=== PATIENT | male | born 1945 | race Caucasian/White ===

== ENCOUNTER 2022-01-19 09:09 | Outpatient (CLI) | payer MEDICARE, MEDICAID, SELFPAY | END 2022-01-19 09:10 | disposition home or self-care (01) | LOC: ANHBWCAUD 09:11 | PROVIDERS: Visit Provider Family Medicine | DX: H91.93 Unspecified hearing loss, bilateral (principal) | CPT/HCPCS: 92555; 92567; 92579 ==

== ENCOUNTER 2025-01-12 08:08 | Outpatient (CLI) | payer MEDICARE, MEDICAID, SELFPAY ==
--- OUTSIDE RECORDS SUMMARY | 2025-01-12 08:17 | XMS_ITS | Encounter Summary ---
Author Organization [facility] Address [address] [place] [address] Phone Care Team Providers Care Electrical And Radio Mock Up Mechanic Name Role Phone Alvaro Dinh MD Primary Care Provider [phone] Markie Dey MD Primary Care Provider [phone] Edvin Zamorano MD Unavailable Encounter Details Date Type Department Care Team (Late Contact Info) Description 07/26/2021 [facility] [address] [place] [address] Markie Dey MD [address] [place] [address] [address] [place] [address] Encounter for screening for COVID-19 Social History Tobacco Use Types Packs/Day Years Used Date Smoking Tobacco: Never Smokeless Tobacco: Never Alcohol Use Standard Drinks/Week Comments Never 0 (1 standard drink = 0.6 oz pur e alcohol) Sex and Gender Information Value Date Recorded Sex Assigned at Not on file Legal Sex Male 7:11 PM CDT Gender Identity Not on file Sexual Orientation Not on file documented as of this encounter Plan of Treatment Upcoming Encounters Date Type Department Care Team (Late Contact Info) Description 03/12/2025 10:00 AM CDT Office Visit [facility] #2 [place] [address] Yelena Moe MD #2 [facility] [address] [place] [address] documented as of this encounter Procedures Procedure Name Priority Date/Time Associated Diagnosis Comments SARS-COV-2 BY MOLECULAR Routine 07/26/2021 9:21 AM CDT documented in this encounter Results * SARS-COV-2 BY MOLECULAR (07/26/2021 9:21 AM CDT) SARSCOV2 NOT DETECTED (Referen ce Range for this test is Not Detected ) [facility] THERMOFISHER FAST DX 07/27/2021 8:27 AM CDT [facility] Comment:This test was perfor med by a RT-PCR method. Other No Phlebotomy Charged / Unknown 07/26/2021 9:21 AM CDT 07/26/2021 11:26 AM CDT Narrative [facility] - 07/27/2021 8:27 AM CDT Authorized Fact Sheets about this test for providers and patients are available at: https://www.fda.gov/medical-devices/nldabuxao-ibjwomwpoq-kvqaxhg-devices/emergen -us e-authorizations us Markie Dey MD MICROBIOLOGY - GENERAL ORDERAB LES Final Result [facility] [address] [place] [address], documented in this encounter Visit Diagnoses Diagnosis Encounter for screening for COVID-19 documented in this encounter Additional Health Concerns Infection Onset Date Last Indicated Resolved Time COVID - 19 07/26/2021 05/30/2022 05/31/2022 12:2 3 AM CDT COVID - 19 Confirmed 05/30/2022 05/30/20222 022 12:16 AM CDT COVID - 19 08/08/2022 09/12/2022 09/22/2022 12:1 6 AM DESIGN CONSULTANT COVID - 19 10/31/2022 01/16/2023 01/26/2023 12:1 6 AM CDT COVID - 19 09/25/2024 09/25/2024 09/25/2024 10:4 0 AM DESIGN CONSULTANT documented as of this encounter Care Teams Electrical And Radio Mock Up Mechanic Relationship Specialty Start Date End Date Alvaro Dinh MD [address] [place] [address] PCP - General Internal Medicine 08/09/20 03/20/23 Markie Dey MD 4 [facility] [address] [place] [address] PCP - General Family Medicine 03/21/23 Edvin Zamorano MD #[address] [facility] [address] [place] [address] Consulting Physician Urology 06/24/24 documented as of this encounter
--- OUTSIDE RECORDS SUMMARY | 2025-01-12 08:17 | XMS_ITS | Encounter Summary ---
Author Organization [facility] Address [address] [place] [address] Phone Care Team Providers Care Bar Helper Name Role Phone Markie Dey MD Primary Care Provider [phone] Edvin Zamorano MD Unavailable Encounter Details Date Type Department Care Team (Late st Contact Info) Description 09/09/2024 [facility] 1 [place] [address] Markie Dey MD [address] [place] [address] [address] [place] [address] Type 1 diabetes mellitus without complications (HCC) Social History Tobacco Use Types Packs/Day Years Used Date Smoking Tobacco: Never Smokeless Tobacco: Never Alcohol Use Standard Drinks/Week Comments Never 0 (1 standard drink = 0.6 oz pur e alcohol) Sexually Active Control Partners Comments Not Currently Sex and Gender Information Value Date Recorded Sex Assigned at Not on file Legal Sex Male 7:11 PM CDT Gender Identity Not on file Sexual Orientation Not on file documented as of this encounter Plan of Treatment Upcoming Encounters Date Type Department Care Team (Late st Contact Info) Description 03/12/2025 10:00 AM CDT Office Visit [facility] #2 [place] [address] Yelena Moe MD #2 [facility] [address] [place] [address] documented as of this encounter Procedures Procedure Name Priority Date/Time Associated Diagnosis Comments HEMOGLOBIN A1C W/ ESTIMATED GLUCOSE Routine 09/09/2024 6:19 AM RN CASE MANAGER HOSPICE Type 1 diabetes mellitus without complications (HCC) documented in this encounter Results * (ABNORMAL) HEMOGLOBIN A1C W/ ESTIMATED GLUCOSE (09/09/2024 6:19 AM RN CASE MANAGER HOSPICE) HGB-A1C 7.4(H) 4.0 - 6.0 % 09/09/2024 10:04 AM RN CASE MANAGER HOSPICE [facility] Est Average Glucose 165.7 mg/dL 09/09/2024 10:04 AM RN CASE MANAGER HOSPICE [facility] Blood Venipuncture / Unknown 09/09/2024 6:19 AM RN CASE MANAGER HOSPICE 09/09/2024 9:36 AM RN CASE MANAGER HOSPICE Narrative [facility] - 09/09/2024 10:04 AM RN CASE MANAGER HOSPICE HEMOGLOBIN A1C: DIABETIC PATIENTS: WELL-CONTROLLED: 6.2 - 7.0 INTERMEDIATE WELL-CONTROLLED: 7.0 - 9.0 POORLY-CONTROLLED: >9.0 us Markie Dey MD CHEMISTRY ORDERABLES Final Res ult [facility] #[address] [place] [address] documented in this encounter Visit Diagnoses Diagnosis Type 1 diabetes mellitus without complications (HCC) Type I (juvenile type) diabetes mellitus without mention of complication, not stated as uncontrolled documented in this encounter Additional Health Concerns Infection Onset Date Last Indicated Resolved Time COVID - 19 09/25/2024 09/25/2024 09/25/2024 10:4 0 AM RN CASE MANAGER HOSPICE documented as of this encounter Care Teams Bar Helper Relationship Specialty Start Date End Date Markie Dey MD [address] [facility] [address] [place] [address] PCP - General Family Medicine 03/21/23 Edvin Zamorano MD #2 [address] [place] [address] Consulting Physician Urology 06/24/24 documented as of this encounter
--- OUTSIDE RECORDS SUMMARY | 2025-01-12 08:17 | XMS_ITS | Encounter Summary ---
Author Organization [facility] Address [address] [place] [address] Phone Care Team Providers Care Procurement Inspector Name Role Phone Alvaro Dinh MD Primary Care Provider [phone] Markie Dey MD Primary Care Provider [phone] Edvin Zamorano MD Unavailable Encounter Details Date Type Department Care Team (Late Contact Info) Description 01/09/2023 [facility] 1 [place] [address] Markie Dey MD [address] [place] [address] [address] [place] [address] Encounter for screening for COVID-19 Social History [...] Description 03/12/2025 10:00 AM CDT Office Visit [facility] #[address] [place] [address] Yelena Moe MD #2 [facility] [address] [place] [address] documented as of this encounter Procedures Procedure Name Priority Date/Time Associated Diagnosis Comments SARS-COV-2 BY MOLECULAR Routine 01/09/2023 7:39 AM INTRAOPERATIVE NEURO TECH Encounter for screening for COVID-19 documented in this encounter Results * SARS-COV-2 BY MOLECULAR (01/09/2023 7:39 AM INTRAOPERATIVE NEURO TECH) SARSCOV2 NOT DETECTED (Referenc e Range for this test is Not Detected) [facility] DIASORIN LIAISON [id number] [id number] 01/09/2023 10:21 PM INTRAOPERATIVE NEURO TECH [facility] [place] [facility] Comment:This test was perfor med by a RT-PCR method. Other Non-Phlebotomy Collection / Unknown 01/09/2023 7:39 AM INTRAOPERATIVE NEURO TECH 01/09/2023 10:03 AM INTRAOPERATIVE NEURO TECH Narrative [facility] [place] [facility] - 01/09/2023 10:21 PM INTRAOPERATIVE NEURO TECH Authorized Fact Sheets about this test for providers and patients are available at: https://www.fda.gov/medical-devices/ifzvbsdnd-pdxedrawtw-utlszgh-devices/emergen cy-us e-authorizations us Markie Dey MD MICROBIOLOGY - GENERAL ORDERAB LES Final Result [facility] [address] [facility] [place] [address], documented in this encounter Visit Diagnoses Diagnosis Encounter for screening for COVID-19 documented in this encounter Additional Health Concerns Infection Onset Date Last Indicated Resolved Time COVID - 19 10/31/2022 01/16/2023 01/26/2023 12:1 6 AM CDT COVID - 19 09/25/2024 09/25/2024 09/25/2024 10:4 0 AM INTRAOPERATIVE NEURO TECH documented as of this encounter Care Teams Procurement Inspector Relationship Specialty Start Date End Date Alvaro Dinh MD [address] [place] [address] PCP - General Internal Medicine 08/09/20 03/20/23 Markie Dey MD [address] [place] [address] [address] [place] [address] PCP - General Family Medicine 03/21/23 Edvin Zamorano MD #[address] [place] [address] Consulting Physician Urology 06/24/24 documented as of this encounter
--- OUTSIDE RECORDS SUMMARY | 2025-01-12 08:17 | XMS_ITS | Encounter Summary ---
Author Organization [facility] Address [address] [place] [address] Phone Care Team Providers Care Show Girl Name Role Phone Alvaro Dinh MD Primary Care Provider [phone] Markie Dey MD Primary Care Provider [phone] Edvin Zamorano MD Unavailable Encounter Details Date Type Department Care Team (Late st Contact Info) Description 02/28/2021 Nursing Facility [facility] [place] [address] Clau Giles APRN, CNP Social History Tobacco Use Types Packs/Day Years [...] on file documented as of this encounter Progress Notes * Clau Giles APN, CNP - 02/28/2021 11:59 PM CDT [facility] DISCHARGE SUMMARY Name: Palomo Carrasco Age: 75 y.o. : 1945 Attending Physician: No att. 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 Exam Day of Discharge: Exam: Constitutional: Patient ??appears well-developed??and well-nourished. ??No distress. Head: Normocephalic??and atraumatic. Mouth/Throat: Oropharynx is clear and moist. Mucous membranes are moist. Face symmetric.?? Eyes: Conjunctivae??and EOM??are normal. Pupils are equal, round, and reactive to light. Neck: Normal range of motion. Neck supple. Cardiovascular: Irregular rhythm, normal heart sounds??and intact distal pulses (correction - RIgthulnar and radial not felt, but doppler+). ?Exam reveals no gallop??and no friction rub. ?? No murmur??heard. Pulmonary/Chest: Effort normal??and breath sounds normal. No respiratory distress. he has no wheezes. he has no rales. ?? Abdominal: Soft. Bowel sounds are normal. he exhibits no distension. There is no tenderness. There is no rebound??and no guarding. ?? : Ferreira catheter with clear yellow urine, no sediment.?? Musculoskeletal: Normal range of motion. he exhibits trace??B/L LE??edema??- improved., tenderness??or deformity.?RLE mid leg down cooler, Lymphadenopathy: ?he has no cervical adenopathy. Neurological: Eyes open, does not follow commands.??CN and motor intact on gross exam.?? Skin: Skin is warm??and dry. No rash??noted. he is not diaphoretic. No erythema. ? Psychiatric: comfortable. Lab / Imaging Review: All labs reviewed. No new findings. DISCHARGE PLAN: Obstructive Uropathy secondary to enlarged??prostate - Ferreira catheter in place - Needs to follow up with Dr. Dominguez as an out patient - Flomax ?? Acute on Chronic Systolic CHF - Metoprolol Succinate??100 mg PO QD - Lasix - Lisinopril - Spironolactone ?? Diabetes??- new diagnosis 01/26/2021 HgbA1c 7.2 on 01/26/2021 - Metformin 500 mg PO BID - Jardiance 10 mg PO Daily 01/31/2021:??Blood sugars are not controlled with current medications. Will add the following: Lantus 15 units SQ at HS Continue to perform accuchecks at and HS. May need to consider mealtime Insulin pending blood sugar results over the next few days.?? 02/14/2021: Blood sugars have been more stable since the Lantus was added at HS. ?? 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 Stage 3 Kidney disease - CMP on 02/01/2021 and 02/08/2021 - CK on 02/08/2021 ? Hypertension - Norvasc ?? Hypothyroidism - Levothyroxine ?? Hyperlipidemia - Atorvastatin ?? Hx of Rheumatoid Arthritis - Plaquenil - Methotrexate? Hx Developmental delay - Lives in a longterm ?? VTE Prophylaxis:??Eliquis 10 mg PO BID x 6 days then 5 mg PO BID ?? Disposition:??Skilled rehab goals at [place] have been met so he is ready to discharge back to [facility]. ? I have spent time coordinating care for this skilled facility discharge: Greater than 30 minutes spent in coordinating care Signed: Clau Giles APN, EXECUTIVE COORDINATOR, 02/28/2021, 2:54 PM CDT Cosigned by Joel Charlton MD at 04/16/2021 10:08 AM CDT documented in this encounter Plan of Treatment Upcoming Encounters Date Type Department Care Team (Late st Contact Info) Description 03/12/2025 10:00 AM CDT Office Visit [facility] #[address] [place] [address] Yelena Moe MD #[address] [facility] [address] [place] [address] documented as of this encounter Visit Diagnoses Not on filedocumented in this encounter Additional Health Concerns Infection Onset Date Last Indicated Resolved Time COVID - 19 07/26/2021 05/30/2022 05/31/2022 12:2 3 AM CDT COVID - 19 Confirmed 05/30/2022 05/30/2022 0816/2 022 12:16 AM CDT COVID - 19 08/08/2022 09/12/2022 09/22/2022 12:1 6 AM HYDROELECTRIC STATION OPERATOR COVID - 19 10/31/2022 01/16/2023 01/26/2023 12:1 6 AM CDT COVID - 19 09/25/2024 09/25/2024 09/25/2024 10:4 0 AM HYDROELECTRIC STATION OPERATOR documented as of this encounter Care Teams Show Girl Relationship Specialty Start Date End Date Alvaro Dinh MD [address] [facility] [address] [place] [address] PCP - General Internal Medicine 08/09/20 03/20/23 Markie Dey MD [address] [facility] [address] [place] [address] PCP - General Family Medicine 03/21/23 Edvin Zamorano MD #[address] [address] Consulting Physician Urology 06/24/24 documented as of this encounter
--- OUTSIDE RECORDS SUMMARY | 2025-01-12 08:17 | XMS_ITS | Encounter Summary ---
Author Organization [facility] Address [address] [place] [address] Phone Care Team Providers Care Cardiac Nurse Specialist Name Role Phone Alvaro Dinh MD Primary Care Provider [phone] Markie Dey MD Primary Care Provider [phone] Edvin Zamorano MD Unavailable Encounter Details Date Type Department Care Team (Late st Contact Info) Description 02/21/2021 Nursing Facility [facility] [address] [place] [address] Clau Giles APRN, DULCE MARIA Social History Tobacco Use Types Packs/Day Years Used Date Smoking Tobacco: Never Smokeless Tobacco: Never Alcohol Use Standard Drinks/Week Comments Never 0 (1 standard drink = 0.6 oz pur e alcohol) Sex and Gender Information Value Date Recorded Sex Assigned at Not on file Legal Sex Male 7:11 PM CDT Gender Identity Not on file Sexual Orientation Not on file COVID-19 Exposure Response Date Recorded In the last month, have you been in contact with someone who was confirmed or suspected to have Coronavirus / COVID-19? No / Unsure 01/26/2021 5:34 PM CDT documented as of this encounter Progress Notes * Clau Giles APN, MARSH BUGGY OPERATOR - 02/21/2021 11:59 PM CDT [facility] DAILY PROGRESS NOTE ?? Palomo Carrasco??is a 75 y.o.??male??at [facility] for acute rehabilitation ? Subjective: Interval History: Patient admitted on 01/30/2021 to [facility] after a hospitalization from 01/26/2021 - 01/30/2021 for acute on chronic systolic CHF, acute respiratory failure with hypoxia, bilateral pleural effusion,??UTI, Stage 3 chronic kidney disease, Hypothyroidism, chronic A Fib with an acute onset of RVR in the hospital, hypertension, enlarged prostate with obstructive uropathy, developmental delay. Prior to this hospitalization the patient was living at [facility]. Pt was admitted to [facility] on 01/14 for septic shock and NSTEMI with Afib RVR. He was transferred to [facility] on 01/19 due to an acute arterial embolus to R brachial artery. ??He was discharged back to [facility]??01/26/2021, but after about 30 minutes, staff wasn't able to obtain b/p or pulse oximetry, so sent??to the ER??for evaluation. ??On arrival here, pt's SpO2 was 89-90% on room air but it was noted he had a lot of sediment in his bergeron catheter. A sepsis alert was initiated and pt was given the 30ml/kg IVF boluses and broad spectrum antibiotics. ??There was a shift change in ER and night time nanny ERP re-evaluated pt and noted pt had R radial pulse to palpation and R brachial pulse noted with doppler,brisk cap refill, and normal color/warmth. ??CXR revealed pulmonary edema and bilateral pleural effusions. ??Possible overhydration with recent IVFs. ??Given vasotec, nitropaste, and 40 IV lasix and admitted for further management of acute on chronic systolic heart failure. ?? [facility] a??concern for Acute systolic CHF - started on lasix IV. Recent ARF - was a concern. His O2 levels improved and normalized immediately once diuresed. Did well with diuresis. Couple of episodes of Afib - converted quickly to rate control. Seen by cardiology. Echo - systolic HF. Tolerated diuresis. CXR improved form admit. On 01/30 - edema in LE better. With recent ARf - will not be aggressive with diuresis. As resp satuts better, can diurese at with with po lasix. Rest issues as above.? 01/31/2021: Pt is minimally verbal, limiting??evaluation and assessment of the patient. He does not appear to be in any pain or discomfort. ??He does not respond to any questions or follow commands. Nursing reports no issues. In review of his medications and labs, noted that he was newly diagnosed with Diabetes and blood sugars have mostly been in the mid 300 range. Patient has not required any oxygen. No issues with the bergeron catheter.? 02/07/2021: Patient sitting up in the wheelchair at the time of my assessment. He did not answer any of my questions but he pointed to a small bunny on his table and stated bunny and then stated easter . Nursing reports the patient does not speak much at all to them and if he does it is one word and may or may not be appropriate to the current discussion. He does not appear to be in any pain or discomfort. ??He does not respond to any questions or follow commands. Nursing reports no issues. 02/14/2021: Patient lying down in bed at the time of my visit. He was non-verbal today. He opens hiseyes but does not respond to questions, which is his baseline. Nursing reports no issues. He does not appear to be in any pain or discomfort. ?? 02/21/2021: Patient sitting up in the wheelchair at the time of my assessment. He was non- verbal today. He opens his eyes but does not respond to questions, which is his baseline. Nursing reports no issues. He does not appear to be in any pain or discomfort. Review of Systems: A 14 point comprehensive review of systems was negative except what is documented in interval history above. ?? Objective: ?? Vital Signs: B/P:??118/74 Pulse:??64 Respirations:??18 Temperature:??98.2 Oxygen Saturation:??98% Oxygen Delivery:??Room air ?? PHYSICAL EXAM: Constitutional: Patient ??appears well-developed??and well-nourished. ??No distress. [...] is no rebound??and no guarding. ?? : Bergeron catheter with clear yellow urine, no sediment.?? Musculoskeletal: Normal range of motion. he exhibits trace??B/L LE??edema??- improved., tenderness??or deformity.?RLE mid leg down cooler, Lymphadenopathy: ?he has no cervical adenopathy. Neurological: Eyes open, does not follow commands.??CN and motor intact on gross exam.?? Skin: Skin is warm??and dry. No rash??noted. he is not diaphoretic. No erythema. ? Psychiatric: comfortable. ?? Labs reviewed: 01/31/2021: HgbA1c 7.2 on 01/26/2021 02/02/2021: WBC 12.1 H/H 14.8/46.1 Plt 227 02/02/2021: Sodium 137 Potassium 5.0 BUN 32 Creatinine 1.2 02/02/2021: Alk Phos 188 AST/ALT 52/72 TBili 1.4 ? 01/26/2021 17:50 01/27/2021 04:10 01/28/2021 05:25 01/29/2021 05:09 01/30/2021 04:37 01/30/2021 09:24 01/30/2021 11:20 GLUCOSE 387 (H) 336 (H) 309 (H) 318 (H) 323 (H) 448 (H) 321 (H) ?? Glucose Results for 01/31/2021: 0600: ??248 1200: ??278 1700: ??218 ? Ref. Range 01/30/2021 04:37 SODIUM Latest Ref Range: 136 - 144 mmol/L 129 (L) POTASSIUM Latest Ref Range: 3.5 - 5.1 mmol/L 4.1 CHLORIDE Latest Ref Range: 100 - 110 mmol/L 93 (L) CO2, VENOUS Latest Ref Range: 22 - 32 mmol/L 31 ANION GAP Latest Ref Range: 8.0 - 20.0 mmol/L 9.1 BUN Latest Ref Range: 8 - 23 mg/dL 35 (H) CREATININE, BLOOD Latest Ref Range: 0.80 - 1.30 mg/dL 1.04 BUN/CREATININE RATIO Latest Ref Range: 12 - 20 ratio 34 (H) TOTAL PROTEIN Latest Ref Range: 6.0 - 8.3 g/dL 5.0 (L) ALBUMIN Latest Ref Range: 3.5 - 5.2 g/dL 2.4 (L) A/G RATIO Latest Ref Range: 1.0 - 2.0 0.9 (L) CALCIUM Latest Ref Range: 8.9 - 10.3 mg/dL 8.0 (L) T BILI Latest Ref Range: <=1.2 mg/dL 0.9 MAGNESIUM,SERUM Latest Ref Range: 1.8 - 2.5 mg/dL 1.8 SGOT (AST) Latest Ref Range: <=40 U/L 30 SGPT (ALT) Latest Ref Range: <=41 U/L 51 (H) ALKALINE PHOSPHATASE Latest Ref Range: 40 - 130 U/L 165 (H) GFR, EST. NONAFRICAN Latest Ref Range: >=60 >60 GFR, EST. Latest Ref Range: >=60 >60 GLUCOSE Latest Ref Range: 70 - 99 mg/dL 323 (H) CHOLESTEROL Latest Ref Range: <=200 mg/dL 101 LDL Latest Ref Range: 5 - 130 mg/dL 56 HDL CHOLESTEROL Latest Ref Range: >40 mg/dL 30.9 (L) NON-HDL CHOLESTEROL Latest Ref Range: <130 mg/dL 70.1 CHOL/HDL RATIO Latest Ref Range: 0.0 - 4.4 3.3 TRIGLYCERIDES Latest Ref Range: <150 mg/dL 69 VLDL Latest Ref Range: 5 - 55 mg/dL 14 WBC Latest Ref Range: 4.00 - 12.00 10(3)/mcL 16.21 (H) RBC Latest Ref Range: 4.40 - 5.80 10(6)/mcL 4.70 HEMOGLOBIN (HGB) Latest Ref Range: 13.0 - 16.5 g/dL 14.8 HEMATOCRIT Latest Ref Range: 38.0 - 50.0 % 45.2 MCV Latest Ref Range: 82.0 - 96.0 fL 96.2 (H) MCH Latest Ref Range: 26.0 - 32.0 pg 31.5 MCHC Latest Ref Range: 31.0 - 36.0 g/dL 32.7 PLATELET COUNT Latest Ref Range: 140 - 440 10(3)/mcL 185 RDW Latest Ref Range: 11.8 - 15.5 % 16.1 (H) MPV Latest Ref Range: 8.0 - 12.6 fL 11.6 NEUTROPHILS Latest Ref Range: 40.0 - 68.0 % 79.4 (H) LYMPHOCYTES Latest Ref Range: 19.0 - 49.0 % 9.0 (L) MONOCYTES Latest Ref Range: 3.0 - 13.0 % 9.7 EOSINOPHILS Latest Ref Range: 0.0 - 8.0 % 1.7 BASOPHILS Latest Ref Range: 0.0 - 1.0 % 0.2 ABSOLUTE NEUTROPHILS Latest Ref Range: 1.40 - 5.30 10(3)/mcL 12.86 (H) ABSOLUTE LYMPHOCYTES Latest Ref Range: 0.90 - 3.30 10(3)/mcL 1.46 ABSOLUTE MONOCYTES Latest Ref Range: 0.10 - 0.90 10(3)/mcL 1.57 (H) ABSOLUTE EOSINOPHILS Latest Ref Range: 0.00 - 0.50 10(3)/mcL 0.28 ABSOLUTE BASOPHILS Latest Ref Range: 0.00 - 0.10 10(3)/mcL 0.04 NRBC PER 100 WBC Unknown 0 ?? 02/07/2021 02/09/2021 Glucose 67 78 Sodium 139 135 Potassium 4.0 4.7 BUN 30 28 Creatinine 1.2 1.4 WBC 8.7 9.5 Hgb 14.2 14.9 Hct 44.2 45.7 Plt 324 373 CPK 54 ? Assessment/Plan: ?? Plan: Obstructive Uropathy secondary to enlarged??prostate - Bergeron catheter in place - Needs to follow up with Dr. Dominguez as an out patient - Flomax ?? Acute on Chronic Systolic CHF - Metoprolol Succinate 100 mg PO QD - Lasix - Lisinopril [...] 02/01/2021 and 02/08/2021 - CK on 02/08/2021 ??02/14/2021: Will draw another CMP in 2 weeks from last blood drawn (02/23/2021) Hypertension - Norvasc ?? Hypothyroidism - Levothyroxine ?? Hyperlipidemia - Atorvastatin ?? Hx of Rheumatoid Arthritis - Plaquenil - Methotrexate? Hx Developmental delay - Lives in a long-term ?? VTE Prophylaxis:??Eliquis 10 mg PO BID x 6 days then 5 mg PO BID ?? Disposition:??[facility] with plan to discharge back to [facility] when therapy goal has been met. ? Code Status:??DNR ?? Health Care POA:??Cesar Duenasperry, guardian ?? By: ??Clau Giles APN, DULCE MARIA, 02/21/2021??10:30 AM CDT Cosigned by Joel Charlton MD at 03/21/2021 7:21 PM CDT documented in this encounter Plan of Treatment Upcoming Encounters Date Type Department Care Team (Late st Contact Info) Description 03/12/2025 10:00 AM CDT Office Visit [facility] [address] [place] [address] Yelena Moe MD [address] [facility] [address] [place] [address] documented as of this encounter Visit Diagnoses Not on filedocumented in this encounter Additional Health Concerns Infection Onset Date Last Indicated Resolved Time COVID - 19 07/26/2021 05/30/2022 05/31/2022 12:2 3 AM CDT COVID - 19 Confirmed 05/30/2022 05/30/2022 022 12:16 AM CDT COVID - 19 08/08/2022 09/12/2022 09/22/2022 12:1 6 AM BLENDING COORDINATOR COVID - 19 10/31/2022 01/16/2023 01/26/2023 12:1 6 AM CDT COVID - 19 09/25/2024 09/25/2024 09/25/2024 10:4 0 AM BLENDING COORDINATOR documented as of this encounter Care Teams Cardiac Nurse Specialist Relationship Specialty Start Date End Date Alvaro Dinh MD [address] [facility] [address] [place] [address] PCP - General Internal Medicine 08/09/20 03/20/23 Markie Dey MD [address] [place] [address] [address] [place] [address] PCP - General Family Medicine 03/21/23 Edvin Zamorano MD [address] [facility] [address] [place] [address] Consulting Physician Urology 06/24/24 documented as of this encounter
--- OUTSIDE RECORDS SUMMARY | 2025-01-12 08:17 | XMS_ITS | Encounter Summary ---
Author Organization [facility] Address [address] [place] [address] Phone Care Team Providers Care Rn Rehab Name Role Phone Alvaro Dinh MD Primary Care Provider [phone] Markie Dey MD Primary Care Provider [phone] Edvin Zamorano MD Unavailable Encounter Details Date Type Department Care Team (Late st Contact Info) Description 01/31/2021 Nursing Facility [facility] [address] [place] [address] Clau Giles APRN, DULCE MARIA [...] encounter Progress Notes * Clau Giles APN, FILM SOUND ENGINEER - 01/31/2021 4:13 PM CDT [facility] DAILY PROGRESS NOTE Palomo Carrasco is a 75 y.o. male at [facility] for acute rehabilitation Subjective: Interval History: Patient admitted on 01/30/2021 to [facility] after a hospitalization from 01/26/2021 - 01/30/2021 for acute on chronic systolic CHF, acute respiratory failure with hypoxia, bilateral pleural effusion, UTI, Stage 3 chronic kidney disease, Hypothyroidism, chronic A Fib with an acute onset of RVR in the hospital, hypertension, enlarged prostate with obstructive uropathy, developmental delay. Prior to this hospitalization the patient was living at [facility]. Pt was admitted [facility] 01/14 for septic shock and NSTEMI with Afib RVR. He was transferred to [facility] on 01/19 due to an acute arterial embolus to R brachial artery. ??He was discharged back to [facility] 01/26/2021, but after about 30 minutes, staff wasn't able to obtain b/p or pulse oximetry, so sent to the ER for evaluation. ??On arrival here, pt's SpO2 was 89-90% on room air but it was noted he had alot of sediment in his bergeron catheter. A sepsis alert was initiated and pt was given the 30ml/kg IVF boluses and broad spectrum antibiotics. ??There was a shift change in ER and hand meat salter ERP re-evaluated pt and noted pt had R radial pulse to palpation and R brachial pulse noted with doppler, brisk cap refill, and normal color/warmth. ??CXR revealed pulmonary edema and bilateral pleural effusions. ??Possible overhydration with recent IVFs. ??Given vasotec, nitropaste, and 40 IV lasix and admitted for further management of acute on chronic systolic heart failure. ?? [facility] there was a concern for Acute systolic CHF - started on [...] with with po lasix. Rest issues as above. 01/31/2021: Pt is minimally verbal, limiting evaluation and assessment of the patient. He does not appear to bein any pain or discomfort. He does not respond to any questions or follow commands. Nursing reportsno issues. In review of his medications and labs, noted that he was newly diagnosed with Diabetes and blood sugars have mostly been in the mid 300 range. Patient has not required any oxygen. No issues with the bergeron catheter. Review of Systems: A 14 point comprehensive review of systems was negative except what is documented in interval history above. Objective: Vital Signs: B/P: 134/68 Pulse: 56 Respirations: 18 Temperature: 97.5 Oxygen Saturation: 97% Oxygen Delivery: Room air PHYSICAL EXAM: Constitutional: Patient ??appears well-developed??and well-nourished. [...] Bergeron catheter with clear yellow urine, no sediment. Musculoskeletal: Normal range of motion. he exhibits trace B/L LE??edema - improved., tenderness??or deformity. ??RLE mid leg down cooler, Lymphadenopathy: ?he has no cervical adenopathy. Neurological: Eyes open, does not follow commands. CN and motor intact on gross exam. Skin: Skin is warm??and dry. No rash??noted. he is not diaphoretic. No erythema. ? Psychiatric: comfortable. Labs reviewed: 01/31/2021: HgbA1c 7.2 on 01/26/2021 01/26/2021 17:50 01/27/2021 04:10 01/28/2021 05:25 01/29/2021 05:09 01/30/2021 04:37 01/30/2021 09:24 01/30/2021 11:20 GLUCOSE 387 (H) 336 (H) 309 (H) 318 (H) 323 (H) 448 (H) 321 (H) Glucose Results for 01/31/2021: 0600: 248 1200: 278 1700: 218 Ref. Range 01/30/2021 04:37 SODIUM Latest Ref [...] 0.04 NRBC PER 100 WBC Unknown 0 Assessment/Plan: Plan: Obstructive Uropathy secondary to enlarged prostate - Bergeron catheter in place - Needs to follow up with Dr. Dominguez as an out patient - Flomax Acute on Chronic Systolic CHF - Metoprolol Succinate - Lasix - Lisinopril - Spironolactone Diabetes - new diagnosis 01/26/2021 HgbA1c 7.2 on 01/26/2021 - Metformin 500 mg PO BID - Jardiance 10 mg PO Daily 01/31/2021: Blood sugars are not controlled with current medications. Will add the following: Lantus 15 units SQ at HS Continue to perform accuchecks at AC and HS. May need to consider mealtime Insulin pending blood sugar results over the next few days. 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 Code Status: DNR Health Care POA: Cesar Ramos, guardian By: Clau Giles APN, CNP, 01/31/2021 11:30 AM CDT documented in this encounter Plan of Treatment Upcoming Encounters Date Type Department Care Team (Late st Contact Info) Description 03/12/2025 10:00 AM CDT Office Visit [facility] [address] [place] [address] Yelena Moe MD [address] [address] documented as of this encounter Visit Diagnoses Not on filedocumented in this encounter Additional Health Concerns Infection Onset Date Last Indicated Resolved Time COVID - 19 07/26/2021 05/30/2022 05/31/2022 12:2 3 AM CDT COVID - 19 Confirmed 05/30/2022 05/30/2022 022 12:16 AM CDT COVID - 19 08/08/2022 09/12/2022 09/22/2022 12:1 6 AM HOG WORKER COVID - 19 10/31/2022 01/16/2023 01/26/2023 12:1 6 AM CDT COVID - 19 09/25/2024 09/25/2024 09/25/2024 10:4 0 AM HOG WORKER documented as of this encounter Care Teams Rn Rehab Relationship Specialty Start Date End Date Alvaro Dinh MD [address] [facility] [address] [place] [address] PCP - General Internal Medicine 08/09/20 03/20/23 Markie Dey MD [address] [facility] [address] [facility] [place] [address] PCP - General Family Medicine 03/21/23 Edvin Zamorano MD [address] [facility] [address] [place] [address] Consulting Physician Urology 06/24/24 documented as of this encounter
--- OUTSIDE RECORDS SUMMARY | 2025-01-12 08:17 | XMS_ITS | Encounter Summary ---
Author Organization [facility] Address [address] [place] [address] Phone Care Team Providers Care Building Energy Consultant Name Role Phone Markie Dey MD Primary Care Provider [phone] Edvin Zamorano MD Unavailable Reason for Visit * Auth/Cert (Routine) Specialty Diagnoses / Procedures Referred By Contac t Referred To Contact Diagnoses Acute cystitis without hematuria Reviewed KB 09/28/2024 Vishal Cheema MD #1 [place] [address] Phone: tel: fax: Referral ID Status Reason Start Date Expiration Date Visits Re quested Visits Authorized [id number] 1 1 Encounter Details Date Type Department Care Team (Late st Contact Info) Description 09/23/2024 Lab Requisition [facility] Laboratory Services 1 [place] [id number] Markie Dey MD [address] [place] [address] [facility] [address] [place] [address] Hypothyroidism, unspecified Social History Tobacco Use Types Packs/Day Years Used Date Smoking Tobacco: Never Smokeless Tobacco: Never Alcohol Use Standard Drinks/Week Comments Never 0 (1 standard drink = 0.6 oz pur e alcohol) [facility] Utilities Answer Date Recorded In the past 12 months has e electric, gas, oil, or water company threatened to shut off services in your home? Patient unable to answer 09/25/2024 Social Connection and Isolation Panel [NHANES] A nswer Date Recorded In a typical week, how many times do you talk on the phone with family, friends, or neighbors? Patient declined 09/25/2024 How often do you get togethe r with friends or relatives? Patient declined 09/25/2024 How often do you attend mandaen or restoration serv ices? Patient declined 09/25/2024 Do you belong to any clubs o r organizations such as mandaen groups, unions, fraternal or athletic groups, or school groups? Patient declined 09/25/2024 How often do you attend meet ings of the clubs or organizations you belong to? Patient declined 09/25/2024 Are you , , di vorced, , never , or living with a partner? Patient declined 09/25/2024 AUDIT-C Answer Date Recorded Q1: How often do you have a drink containing alc ohol? Patient declined 09/25/2024 Q2: How many drinks containi ng alcohol do you have on a typical day when you are drinking? Patient declined 09/25/2024 Q3: How often do you have si x or more drinks on one occasion? Patient declined 09/25/2024 Overall Financial Resource Strain (CARDIA) Answe r Date Recorded How hard is it for you to pa y for the very basics like food, housing, medical care, and heating? Patient declined 09/25/2024 [facility] - Occupational Stress Questionnaire Answer Date Recorded Do you feel stress - tense, restless, nervous, or anxious, or unable to sleep at night because your mind is troubled all the time - these days? Patient declined 09/25/2024 Exercise Vital Sign Answer Date Recorde d On average, how many days pe r week do you engage in moderate to strenuous exercise (like a brisk walk)? Patient declined On average, how many minutes do you engage in exercise at this level? Patient declined 09/25/2024 Hunger Vital Sign Answer Date Recorded Within the past 12 months, y ou worried that your food would run out before you got the money to buy more. Patient unable to answer 09/25/2024 Within the past 12 months, t he food you bought just didn't last and you didn't have money to get more. Patient unable to answer 09/25/2024 PRAPARE - Transportation Answer Date Re corded In the past 12 months, has l ack of transportation kept you from medical appointments or from getting medications? Patient unable to answer 09/25/2024 In the past 12 months, has l ack of transportation kept you from meetings, work, or from getting things needed for daily living? Patient unable to answer 09/25/2024 Housing Stability Vital Sign Answer Jonathan e Recorded In the last 12 months, was t here a time when you were not able to pay the mortgage or rent on time? Patient unable to answer 09/25/2024 In the past 12 months, how m any times have you moved where you were living? 0 09/25/2024 At any time in the past 12 m onths, were you homeless or living in a prison (including now)? Patient unable to answer 09/25/2024 Sexually Active Control Partners Comments Not Currently Sex and Gender Information Value Date Recorded Sex Assigned at Not on file Legal Sex Male 7:11 PM CDT Gender Identity Not on file Sexual Orientation Not on file documented as of this encounter Functional Status * Audit-C Score Answer Date of Assessment Author -1 09/25/2024 5:58 PM Taylor Soliman RN * Within the last year, have you been humiliated or emotionally abused in other ways by your partner or ex-partner? Answer Date of Assessment Author Patient unable to answer 09/25/2024 5:58 PM Taylor Soliman RN * Within the last year, have you been afraid of your partner or ex-partner? Answer Date of Assessment Author Patient unable to answer 09/25/2024 5:58 PM Taylor Soliman RN * Within the last year, have you been raped or forced to have any kind of sexual activity by your partner or ex-partner? Answer Date of Assessment Author Patient unable to answer 09/25/2024 5:58 PM Taylor Soliman RN * Within the last year, have you been kicked, hit, slapped, or otherwise physically hurt by your partner or ex-partner? Answer Date of Assessment Author Patient unable to answer 09/25/2024 5:58 PM Taylor Soliman RN * Question Answer Date of Assessment Author Q1: How often do you have a drink containing alcohol? Patient declined 09/25/2024 5:58 PM Taylor Soliman RN Q2: How many drinks containing alcohol do you have on a typical day when you are drinking? Patient declined 09/25/2024 5:58 PM Taylor Soliman RN Q3: How often do you have six or more drinks on one occasion? Patient declined 09/25/2024 5:58 PM Taylor Soliman RN documented as of this encounter Plan of Treatment Upcoming Encounters Date Type Department Care Team (Late st Contact Info) Description 03/12/2025 10:00 AM CDT Office Visit [facility] #2 [place] [address] Yelena Moe MD #[address] [address] documented as of this encounter Procedures Procedure Name Priority Date/Time Associated Diagnosis Comments THYROXINE (T4) FREE Routine 09/23/2024 7 :01 AM SUPERVISOR TYPESETTING Hypothyroidism, unspecified THYROID STIMULATING HORMONE (TSH) Routine 09/23/2024 7:01 AM SUPERVISOR TYPESETTING Hypothyroidism, unspecified documented in this encounter Results * THYROID STIMULATING HORMONE (TSH) (09/23/2024 7:01 AM SUPERVISOR TYPESETTING) TSH 0.617 0.300 - 5.000 mIU/L 09/23/2024 10:49 AM SUPERVISOR TYPESETTING [facility] Blood Venipuncture / Unknown 09/23/2024 7:01 AM SUPERVISOR TYPESETTING 09/23/2024 7:54 AM SUPERVISOR TYPESETTING us Markie Dey MD CHEMISTRY ORDERABLES Final Res ult [facility] #1 [place] [address] * THYROXINE (T4) FREE (09/23/2024 7:01 AM SUPERVISOR TYPESETTING) T4 FREE 1.0 0.7 - 1.9 ng/dL 09/23/2024 10:49 AM SUPERVISOR TYPESETTING [facility] Blood Venipuncture / Unknown 09/23/2024 7:01 AM SUPERVISOR TYPESETTING 09/23/2024 7:54 AM SUPERVISOR TYPESETTING us Markie Dey MD CHEMISTRY ORDERABLES Final Res ult [facility] [address] [place] [address] documented in this encounter Visit Diagnoses Diagnosis Hypothyroidism, unspecified documented in this encounter Additional Health Concerns Infection Onset Date Last Indicated Resolved Time COVID - 19 09/25/2024 09/25/2024 09/25/2024 10:4 0 AM SUPERVISOR TYPESETTING documented as of this encounter Care Teams Building Energy Consultant Relationship Specialty Start Date End Date Markie Dey MD [address] [facility] [facility] [address] [place] [address] PCP - General Family Medicine 03/21/23 Edvin Zamorano MD [address] [place] [address] Consulting Physician Urology 06/24/24 documented as of this encounter
--- OUTSIDE RECORDS SUMMARY | 2025-01-12 08:17 | XMS_ITS | Encounter Summary ---
Author Organization [facility] Address [address] [place] [address] Phone Care Team Providers Care Sandblaster Supervisor Name Role Phone Alvaro Dinh MD Primary Care Provider [phone] Markie Dey MD Primary Care Provider [phone] Edvin Zamorano MD Unavailable Encounter Details Date Type Department Care Team (Late Contact Info) Description 01/16/2023 [facility] 1 [place] [address] Markie Dey MD [address] [place] [address] [address] [place] [address] Encounter for screening for COVID-19 Social History [...] Description 03/12/2025 10:00 AM CDT Office Visit [facility] #2 [place] [address] Yelena Moe MD #2 [facility] [address] [place] [address] documented as of this encounter Procedures Procedure Name Priority Date/Time Associated Diagnosis Comments SARS-COV-2 BY MOLECULAR Routine 01/16/2023 7:46 AM CDT Encounter for screening for COVID-19 documented in this encounter Results * SARS-COV-2 BY MOLECULAR (01/16/2023 7:46 AM CDT) SARSCOV2 NOT DETECTED (Referen ce Range for this test is Not Detected ) [facility] THERMOF[facility] FAST DX 01/16/2023 5:01 PM CDT [facility] Comment:This test was perfor med by a RT-PCR method. Other COVID 19 Collection / Unknown 01/16/2023 7:46 AM CDT 01/16/2023 9:46 AM CDT Narrative [facility] - 01/16/2023 5:01 PM CDT Authorized Fact Sheets about this test for providers and patients are available at: https://www.fda.gov/medical-devices/yloaemmil-odnwrklucq-ppguxyu-devices/emergen cy-us e-authorizations us Markie Dey MD MICROBIOLOGY - GENERAL ORDERAB LES Final Result [facility] [address] [place] [address], documented in this encounter Visit Diagnoses Diagnosis Encounter for screening for COVID-19 documented in this encounter Additional Health Concerns Infection Onset Date Last Indicated Resolved Time COVID - 19 10/31/2022 01/16/2023 01/26/2023 12:1 6 AM CDT COVID - 19 09/25/2024 09/25/2024 09/25/2024 10:4 0 AM DIESEL MAINTENANCE ELECTRICIAN documented as of this encounter Care Teams Sandblaster Supervisor Relationship Specialty Start Date End Date Alvaro Dinh MD [address] [place] [address] PCP - General Internal Medicine 08/09/20 03/20/23 Markie Dey MD [address] [place] [address] [address] [place] [address] PCP - General Family Medicine 03/21/23 Edvin Zamorano MD [address] [place] [address] Consulting Physician Urology 06/24/24 documented as of this encounter
--- OUTSIDE RECORDS SUMMARY | 2025-01-12 08:17 | XMS_ITS | Encounter Summary ---
Author Organization [facility] Address [address] [place] [address] Phone Care Team Providers Care Chemical Sprayer Name Role Phone Markie Dey MD Primary Care Provider [phone] Edvin Zamorano MD Unavailable Encounter Details Date Type Department Care Team (Late st Contact Info) Description 09/26/2024 Transcribe Orders [facility] Laboratory Services 1 [place] [address] Markie Dey MD [address] [place] [address] [facility] [address] [place] [address] Type 1 diabetes mellitus with other specified complication (HCC) (Primary Dx) Social History Tobacco Use Types Packs/Day Years Used Date Smoking Tobacco: Never Smokeless Tobacco: Never Alcohol Use Standard Drinks/Week Comments Never 0 (1 standard drink = 0.6 oz pur e alcohol) [facility] Utilities Answer Date Recorded In the past 12 months has [employer], gas, oil, or water [employer] threatened to shut off services in your home? Patient unable to answer 09/25/2024 Social Connection and Isolation Panel [NHANES] A nswer Date Recorded In a typical week, how many times do you talk on the phone with family, friends, or neighbors? Patient declined 09/25/2024 How often do you get togethe r with friends or relatives? Patient declined 09/25/2024 How often do you attend jehovah's witness or oriental orthodox serv ices? Patient declined 09/25/2024 Do you belong to any clubs o r organizations such as jehovah's witness groups, unions, fraternal or athletic groups, or [...] medical care, and heating? Patient declined 09/25/2024 [facility] Occupat ional Health - Occupational Stress [...] any time in the past 12 m [facility], were you homeless or living in a senior living (including now)? Patient unable to answer 09/25/2024 [...] PHYSICIAN GROUP UROLOGY #[address] [place] [address] Yelena Moe MD #[address] [facility] [address] [place] [address] Scheduled Orders Name Type Priority Associated Diagnoses Orde r Schedule CMP (COMPREHENSIVE METABOLIC PANEL) Lab Routine Type 1 diabetes mellitus with other specified complication (HCC) Expected: 09/26/2024, Expires: 09/26/2025 COMPLETE BLOOD COUNT (CBC) WITH DIFF Lab Routine Type 1 diabetes mellitus with other specified complication (HCC) Expected: 09/26/2024, Expires: 09/26/2025 THYROXINE (T4) TOTAL Lab Routine Type 1 diabetes mellitus with other specified complication (HCC) Expected: 09/26/2024, Expires: 09/26/2025 THYROID STIMULATING HORMONE (TSH) Lab Routine Type 1 diabetes mellitus with other specified complication (HCC) Expected: 09/26/2024, Expires: 09/26/2025 HEMOGLOBIN A1C W/ ESTIMATED GLUCOSE Lab Routine Type 1 diabetes mellitus with other specified complication (HCC) Expected: 09/26/2024, Expires: 09/26/2025 documented as of this encounter Visit Diagnoses Diagnosis Type 1 diabetes mellitus with other specified complication (HCC)- Primary documented in this encounter Care Teams Chemical Sprayer Relationship Specialty Start Date End Date Markie Dey MD [address] [place] [address] [facility] [address] [place] [address] PCP - General Family Medicine 03/21/23 Edvin Zamorano MD #2 [facility], [address] [address] Consulting Physician Urology 06/24/24 documented as of this encounter
--- OUTSIDE RECORDS SUMMARY | 2025-01-12 08:17 | XMS_ITS | Encounter Summary ---
Author Organization [facility] Address [address] [place] [address] Phone Care Team Providers Care Supply Chain Engineer Name Role Phone Alvaro Dinh MD Primary Care Provider [phone] Markie Dey MD Primary Care Provider [phone] Edvin Zamorano MD Unavailable Encounter Details Date Type Department Care Team (Late st Contact Info) Description 02/07/2021 Nursing Facility [facility] [address] [place] [address] Clau Giles APRN, DULCE MARIA [...] encounter Progress Notes * Clau Giles APN, PAPER MACHINE SUPERVISOR - 02/07/2021 11:59 PM CDT [facility] DAILY PROGRESS NOTE ?? Palomo Carrasco is a 75 y.o. male at [facility] for acute rehabilitation ? Subjective: Interval History: Patient admitted on 01/30/2021 to [facility] after a hospitalization from 01/26/2021 - 01/30/2021 for acute on chronic systolic CHF, acute respiratory failure with hypoxia, bilateral pleural effusion, UTI, Stage 3 chronic kidney disease, Hypothyroidism, chronic A Fib with an acute onset of RVR in the hospital, hypertension, enlarged prostate with obstructive uropathy, developmental delay. Prior to this hospitalization the patient was living at [facility]. Pt was admitted to [facility] 01/14 for septic shock and NSTEMI with Afib RVR. 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 ??He was discharged back to [facility] 01/26/2021, but after about 30 minutes, staff [...] was a shift change in ER and slot shift manager ERP re-evaluated pt and noted pt had [...] with po lasix. Rest issues as above. ?? 01/31/2021: Pt is minimally verbal, limiting evaluation and assessment of the patient. He does not appear to bein any pain or discomfort. ??He does not respond to any questions or follow commands. Nursing reports no issues. In review of his medications and labs, noted that he was newly diagnosed with Diabetesand blood sugars have mostly been in the mid 300 range. Patient has not required any oxygen. No issues with the bergeron catheter. 02/07/2021: Patient sitting up in the wheelchair [...] or follow commands. Nursing reports no issues. ?? Review of Systems: A 14 point comprehensive review of systems was negative except what is documented in interval history above. ?? Objective: ?? Vital Signs: B/P: 124/68 Pulse: 52 Respirations: 18 Temperature: 97.5 Oxygen Saturation: 98% Oxygen Delivery: Room air ?? PHYSICAL EXAM: Constitutional: Patient ??appears [...] commands. CN and motor intact on gross exam.?? Skin: [...] (H) ?? Glucose Results for 01/31/2021: 0600: 248 1200: 278 1700: 218 ? Ref. Range 01/30/2021 04:37 SODIUM Latest [...] 0.04 NRBC PER 100 WBC Unknown 0 ? Assessment/Plan: ?? Plan: Obstructive Uropathy secondary to enlarged prostate - Bergeron catheter in place - Needs to follow up with Dr. Dominguez as an out patient - Flomax ?? Acute on Chronic Systolic CHF - Metoprolol Succinate 100 mg PO QD - Lasix - Lisinopril - Spironolactone ?? Diabetes - new diagnosis 01/26/2021 HgbA1c 7.2 on 01/26/2021 - Metformin 500 mg PO BID - Jardiance 10 mg PO Daily 01/31/2021: Blood sugars are not controlled with current medications. Will add the following: Lantus 15 units SQ at HS Continue to perform accuchecks at and HS. May need to consider mealtime Insulin pending blood sugar results over the next few days. ?? 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 Stage 3 Kidney disease - CMP on 02/01/2021 and 02/08/2021 - CK on 02/08/2021 ?? Hypertension - Norvasc ?? Hypothyroidism - Levothyroxine ?? Hyperlipidemia - Atorvastatin ?? Hx of Rheumatoid Arthritis - Plaquenil - Methotrexate ?? Hx Developmental delay - Lives in a residential ?? VTE Prophylaxis: Eliquis 10 mg PO BID x 6 days then 5 mg PO BID ?? Disposition: Skilled rehab at [place] with plan to discharge back to [facility] when therapy goal has been met. ? Code Status: DNR ?? Health Care POA: Cesar Ramos, guardian ?? By: Clau Giles APN, DULCE MARIA, 02/07/2021 9:30 AM CDT Cosigned by Joel Charlton MD at 02/10/2021 1:23 PM CDT documented in this encounter Plan of Treatment Upcoming Encounters Date Type Department Care Team (Late st Contact Info) Description 03/12/2025 10:00 AM CDT Office Visit [facility] #2 [place] [address] Yelena Moe MD #[address] [address] documented as of this encounter Visit Diagnoses Not on filedocumented in this encounter Additional Health Concerns Infection Onset Date Last Indicated Resolved Time COVID - 19 07/26/2021 05/30/2022 05/31/2022 12:2 3 AM CDT COVID - 19 Confirmed 05/30/2022 05/30/2022 08/16/2 022 12:16 AM CDT COVID - 19 08/08/2022 09/12/2022 09/22/2022 12:1 6 AM INSURANCE VERIFY REP COVID - 19 10/31/2022 01/16/2023 01/26/2023 12:1 6 AM CDT COVID - 19 09/25/2024 09/25/2024 09/25/2024 10:4 0 AM INSURANCE VERIFY REP documented as of this encounter Care Teams Supply Chain Engineer Relationship Specialty Start Date End Date Alvaro Dinh MD [address] [facility] [address] [place] [address] PCP - General Internal Medicine 08/09/20 03/20/23 Markie Dey MD [address] [facility] [address] [place] [address] PCP - General Family Medicine 03/21/23 Edvin Zamorano MD #2 [address] [facility] [address] [place] [address] Consulting Physician Urology 06/24/24 documented as of this encounter
--- OUTSIDE RECORDS SUMMARY | 2025-01-12 08:17 | XMS_ITS | Encounter Summary ---
Author Organization [facility] Address [address] [place] [address] Phone Care Team Providers Care Bead Wire Insulator Name Role Phone Alvaro Dinh MD Primary Care Provider [phone] Markie Dey MD Primary Care Provider [phone] Edvin Zamorano MD Unavailable Encounter Details Date Type Department Care Team (Late Contact Info) Description 12/19/[address] [facility] 1 [place] [address] Markie Dey MD [address] [place] [address] [address] [place] [address] Encounter for screening for COVID-19 Social History [...] Description 03/12/2025 10:00 AM CDT Office Visit [facility] #2 [place] [address] Yelena Moe MD #2 [facility] [address] [place] [address] documented as of this encounter Procedures Procedure Name Priority Date/Time Associated Diagnosis Comments SARS-COV-2 BY MOLECULAR Routine 12/19/2022 8:12 AM REAL ESTATE INVESTMENT ANALYST Encounter for screening for COVID-19 documented in this encounter Results * SARS-COV-2 BY MOLECULAR (12/19/2022 8:12 AM REAL ESTATE INVESTMENT ANALYST) SARSCOV2 NOT DETECTED (Referen ce Range for this test is Not Detected ) [facility] THERMOFISHER FAST DX 12/19/2022 8:07 PM REAL ESTATE INVESTMENT ANALYST [facility] Comment:This test was perfor med by a RT-PCR method. Other No Phlebotomy Charged / Unknown 12/19/2022 8:12 AM REAL ESTATE INVESTMENT ANALYST 12/19/2022 9:45 AM REAL ESTATE INVESTMENT ANALYST Narrative [facility] - 12/19/2022 8:07 PM REAL ESTATE INVESTMENT ANALYST Authorized Fact Sheets about this test for providers and patients are available at: https://www.fda.gov/medical-devices/aspzzozdd-pilvsywfch-qyznqgl-devices/emergen -us e-authorizations Result [facility] Markie Dey MD MICROBIOLOGY - GENERAL ORDERAB LES Final Result [facility] [address] [place] [address], documented in this encounter Visit Diagnoses Diagnosis Encounter for screening for COVID-19 documented in this encounter Additional Health Concerns Infection Onset Date Last Indicated Resolved Time COVID - 19 10/31/2022 01/16/2023 01/26/2023 12:1 6 AM CDT COVID - 19 09/25/2024 09/25/2024 09/25/2024 10:4 0 AM REAL ESTATE INVESTMENT ANALYST documented as of this encounter Care Teams Bead Wire Insulator Relationship Specialty Start Date End Date Alvaro Dinh MD [address] [place] [address] PCP - General Internal Medicine 08/09/20 03/20/23 Markie Dey MD [address] [place] [address] [address] [place] [address] PCP - General Family Medicine 03/21/23 Edvin Zamorano MD #[address] [place] [address] Consulting Physician Urology 06/24/24 documented as of this encounter
--- OUTSIDE RECORDS SUMMARY | 2025-01-12 08:17 | XMS_ITS | Encounter Summary ---
Author Organization [facility] Address [address] [place] [address] Phone Care Team Providers Care Bottomer Operator Name Role Phone Alvaro Dinh MD Primary Care Provider [phone] Markie Dey MD Primary Care Provider [phone] Edvin Zamorano MD Unavailable Encounter Details Date Type Department Care Team (Late st Contact Info) Description 02/14/2021 Nursing Facility [facility] [address] [place] [address] Clau Giles APRN, DULCE MARIA [...] of this encounter Progress Notes * Clau Giles, FACILITY ENVIRONMENTAL TECHNICIAN, MODELING AGENCY MANAGER - 02/14/2021 1:11 PM CDT [facility] DAILY PROGRESS NOTE ?? Palomo Carrasco??is a 75 y.o.??male??at [facility] for acute rehabilitation ? Subjective: Interval History: Patient admitted on 01/30/2021 to [facility] after a hospitalization from 01/26/2021 - 01/30/2021 for acute on chronic systolic CHF, acute respiratory failure with hypoxia, bilateral pleural effusion,??UTI, Stage 3 chronic kidney disease, Hypothyroidism, chronic A Fib with an acute onset of RVR in the hospital, hypertension, enlarged prostate with obstructive uropathy, developmental delay. Prior to this hospitalization the patient was living at [facility]. Pt was admitted to [facility] on 01/14 for septic shock and NSTEMI with Afib RVR. He was transferred to [facility] on 01/19 due to an acute arterial embolus to R brachial artery. ??He was discharged back to [facility]??01/26/2021, but after about 30 minutes, staff [...] a shift change in ER and night filler ERP re-evaluated pt and noted pt had [...] be in any pain or discomfort. ?? Review of Systems: A 14 point comprehensive review of systems was negative except what is documented in interval history above. ?? Objective: ?? Vital Signs: B/P:??128/72 Pulse:??62 Respirations:??18 Temperature:??98.5 Oxygen Saturation:??98% Oxygen Delivery:??Room air ?? PHYSICAL [...] Hx Developmental delay - Lives in a intermediate ?? VTE Prophylaxis:??Eliquis 10 mg PO BID x 6 days then 5 mg PO BID ?? Disposition:??Skilled rehab at [facility] with plan to discharge back to [facility] when therapy goal has been met. ? Code Status:??DNR ?? Health Care POA:??Cesar Ramos, guardian ?? By: ??Clau Giles APN, DULCE MARIA, 02/14/2021??10:30 AM CDT Cosigned by Joel Charlton MD at 02/28/2021 6:57 PM CDT documented in this encounter Plan of Treatment Upcoming Encounters Date Type Department Care Team (Late st Contact Info) Description 03/12/2025 10:00 AM CDT Office Visit [facility] [address] [place] [address] Yelena Moe MD #[address] [facility] [address] [place] [address] documented as of this encounter Visit Diagnoses Not on filedocumented in this encounter Additional Health Concerns Infection Onset Date Last Indicated Resolved Time COVID - 19 07/26/2021 05/30/2022 05/31/2022 12:2 3 AM CDT COVID - 19 Confirmed 05/30/2022 05/30/2022 022 12:16 AM CDT COVID - 19 08/08/2022 09/12/2022 09/22/2022 12:1 6 AM LINE MAINTAINER COVID - 19 10/31/2022 01/16/2023 01/26/2023 12:1 6 AM CDT COVID - 19 09/25/2024 09/25/2024 09/25/2024 10:4 0 AM LINE MAINTAINER documented as of this encounter Care Teams Bottomer Operator Relationship Specialty Start Date End Date Alvaro Dinh MD [address] [facility] [address] [place] [address] PCP - General Internal Medicine 08/09/20 03/20/23 Markie Dey MD [address] [facility] [address] [place] [address] PCP - General Family Medicine 03/21/23 Edvin Zamorano MD #[address] [facility] [address] [place] [address] Consulting Physician Urology 06/24/24 documented as of this encounter
--- OUTSIDE RECORDS SUMMARY | 2025-01-12 08:17 | XMS_ITS | Encounter Summary ---
Author Organization [facility] Address [address] [place] [address] Phone Care Team Providers Care Cloth Designer Name Role Phone Alvaro Dinh MD Primary Care Provider [phone] Markie Dey MD Primary Care Provider [phone] Edvin Zamorano MD Unavailable Encounter Details Date Type Department Care Team (Late Contact Info) Description 01/02/2023 [facility] 1 [place] [address] Markie Dey MD [address] [place] [address] [address] [place] [address] Encounter for screening for COVID-19 Social History [...] Description 03/12/2025 10:00 AM CDT Office Visit [facility] #[address] [place] [address] Yelena Moe MD #2 [facility] [address] [place] [address] documented as of this encounter Procedures Procedure Name Priority Date/Time Associated Diagnosis Comments SARS-COV-2 BY MOLECULAR Routine 01/02/2023 7:59 AM WINDOW REPAIRER Encounter for screening for COVID-19 documented in this encounter Results * SARS-COV-2 BY MOLECULAR (01/02/2023 7:59 AM WINDOW REPAIRER) SARSCOV2 NOT DETECTED (Referen ce Range for this test is Not Detected ) [facility] THERMOFISHER FAST DX 01/03/2023 8:02 AM WINDOW REPAIRER [facility] Comment:This test was perfor med by a RT-PCR method. Other Non-Phlebotomy Collection / Unknown 01/02/2023 7:59 AM WINDOW REPAIRER 01/02/2023 10:28 AM WINDOW REPAIRER Narrative [facility] - 01/03/2023 8:02 AM WINDOW REPAIRER Authorized Fact Sheets about this test for providers and patients are available at: https://www.fda.gov/medical-devices/fomxpyvjp-khkkrfyqbf-lwuhcdm-devices/emergen -us e-authorizations Markie Dey MD MICROBIOLOGY - GENERAL ORDERAB LES Final Result [facility] [address] [place] [address], documented in this encounter Visit Diagnoses Diagnosis Encounter for screening for COVID-19 documented in this encounter Additional Health Concerns Infection Onset Date Last Indicated Resolved Time COVID - 19 10/31/2022 01/16/2023 01/26/2023 12:1 6 AM CDT COVID - 19 09/25/2024 09/25/2024 09/25/2024 10:4 0 AM WINDOW REPAIRER documented as of this encounter Care Teams Cloth Designer Relationship Specialty Start Date End Date Alvaro Dinh MD [address] [place] [address] PCP - General Internal Medicine 08/09/20 03/20/23 Markie Dey MD [address] [place] [address] [address] [place] [address] PCP - General Family Medicine 03/21/23 Edvin Zamorano MD [address] [place] [address] Consulting Physician Urology 06/24/24 documented as of this encounter
--- OUTSIDE RECORDS SUMMARY | 2025-01-12 08:17 | XMS_ITS | Encounter Summary ---
Author Organization [facility] Address [address] [place] [address] Phone Care Team Providers Care Walnut Dehydrator Operator Name Role Phone Alvaro Dinh MD Primary Care Provider [phone] Markie Dey MD Primary Care Provider [phone] Edvin Zamorano MD Unavailable Encounter Details Date Type Department Care Team (Late Contact Info) Description 12/26/2022 [facility] 1 [place] [address] Markie Dey MD [address] [place] [address] [address] [place] [address] Encounter for screening for COVID-19 Social History [...] Description 03/12/2025 10:00 AM CDT Office Visit [facility] #2 [place] [address] Yelena Moe MD #2 [facility] [address] [place] [address] documented as of this encounter Procedures Procedure Name Priority Date/Time Associated Diagnosis Comments SARS-COV-2 BY MOLECULAR Routine 12/26/2022 7:52 AM MONTESSORI TODDLER TEACHER Encounter for screening for COVID-19 documented in this encounter Results * SARS-COV-2 BY MOLECULAR (12/26/2022 7:52 AM MONTESSORI TODDLER TEACHER) SARSCOV2 NOT DETECTED (Referen ce Range for this test is Not Detected ) [facility] THERMOFISHER FAST DX 12/27/2022 12:34 AM MONTESSORI TODDLER TEACHER [facility] Comment:This test was perfor med by a RT-PCR method. Other Non-Phlebotomy Collection / Unknown 12/26/2022 7:52 AM MONTESSORI TODDLER TEACHER 12/26/2022 10:15 AM MONTESSORI TODDLER TEACHER Narrative [facility] - 12/27/2022 12:34 AM MONTESSORI TODDLER TEACHER Authorized Fact Sheets about this test for providers and patients are available at: https://www.fda.gov/medical-devices/lkqbyxqei-vtjmrnrngf-ahbrxxu-devices/emergen -us e-authorizations Result [facility] Markie Dey MD MICROBIOLOGY - GENERAL ORDERAB LES Final Result [facility] [address] [place] [address], documented in this encounter Visit Diagnoses Diagnosis Encounter for screening for COVID-19 documented in this encounter Additional Health Concerns Infection Onset Date Last Indicated Resolved Time COVID - 19 10/31/2022 01/16/2023 01/26/2023 12:1 6 AM CDT COVID - 19 09/25/2024 09/25/2024 09/25/2024 10:4 0 AM MONTESSORI TODDLER TEACHER documented as of this encounter Care Teams Walnut Dehydrator Operator Relationship Specialty Start Date End Date Alvaro Dinh MD [address] [place] [address] PCP - General Internal Medicine 08/09/20 03/20/23 Markie Dey MD [address] [place] [address] [address] [place] [address] PCP - General Family Medicine 03/21/23 Edvin Zamorano MD [address] [place] [address] Consulting Physician Urology 06/24/24 documented as of this encounter
--- OUTSIDE RECORDS SUMMARY | 2025-01-12 08:18 | XMS_ITS | Encounter Summary ---
Author Organization [facility] Address [address] [place] [address] Phone Care Team Providers Care Surety Bond Agent Name Role Phone Alvaro Dinh MD Primary Care Provider [phone] Markie Dey MD Primary Care Provider [phone] Edvin Zamorano MD Unavailable Encounter Details Date Type Department Care Team (Late Contact Info) Description 02/21/2022 [facility] 1 [place] [address] Markie Dey MD [address] [place] [address] [address] [place] [address] Encounter for screening for COVID-19 Social History [...] Description 03/12/2025 10:00 AM CDT Office Visit [facility] #2 [place] [address] Yelena Moe MD #2 [facility] [address] [place] [address] documented as of this encounter Procedures Procedure Name Priority Date/Time Associated Diagnosis Comments SARS-COV-2 BY MOLECULAR Routine 02/21/2022 7:55 AM CDT Encounter for screening for COVID-19 documented in this encounter Results * SARS-COV-2 BY MOLECULAR (02/21/2022 7:55 AM CDT) SARSCOV2 NOT DETECTED (Referen ce Range for this test is Not Detected ) [facility] THERMOFISHER FAST DX 02/21/2022 11:11 PM CDT [facility] Comment:This test was perfor med by a RT-PCR method. Other No Phlebotomy Charged / Unknown 02/21/2022 7:55 AM CDT 02/21/2022 12:23 PM CDT Narrative [facility] - 02/21/2022 11:11 PM CDT Authorized Fact Sheets about this test for providers and patients are available at: https://www.fda.gov/medical-devices/busxclbuz-ruyxzlfujv-qqcbsmm-devices/emergen cy-us e-authorizations us Markie Dey MD MICROBIOLOGY - GENERAL ORDERAB LES Final Result [facility] [address] [place] [address], documented in this encounter Visit Diagnoses Diagnosis Encounter for screening for COVID-19 documented in this encounter Additional Health Concerns Infection Onset Date Last Indicated Resolved Time COVID - 19 07/26/2021 05/30/2022 05/31/2022 12:2 3 AM CDT COVID - 19 Confirmed 05/30/2022 05/30/2022 08/2 022 12:16 AM CDT COVID - 19 08/08/2022 09/12/2022 09/22/2022 12:1 6 AM TAX ASSOCIATE ATTORNEY COVID - 19 10/31/2022 01/16/2023 01/26/2023 12:1 6 AM CDT COVID - 19 09/25/2024 09/25/2024 09/25/2024 10:4 0 AM TAX ASSOCIATE ATTORNEY documented as of this encounter Care Teams Surety Bond Agent Relationship Specialty Start Date End Date Alvaro Dinh MD [address] [facility] [address] [place] [address] PCP - General Internal Medicine 08/09/20 03/20/23 Markie Dey MD [address] [facility] [address] [place] [address] PCP - General Family Medicine 03/21/23 Edvin Zamorano MD [address] [facility] [address] [place] [address] Consulting Physician Urology 06/24/24 documented as of this encounter
--- OUTSIDE RECORDS SUMMARY | 2025-01-12 08:18 | XMS_ITS | Encounter Summary ---
Author Organization [facility] Address [address] [place] [address] Phone Care Team Providers Care Neurocritical Care Physician Name Role Phone Alvaro Dinh MD Primary Care Provider Markie Dey MD Primary Care Provider [phone] Edvin Zamorano MD Unavailable Encounter Details Date Type Department Care Team (Late Contact Info) Description 02/07/2022 [facility] 1 [place] [address] Markie Dey MD [address] [place] [address] [address] [place] [address] Encounter for screening for other viral diseases Social History Tobacco Use Types Packs/Day Years [...] Description 03/12/2025 10:00 AM CDT Office Visit [facility] #2 [place] [address] Yelena Moe MD #2 [facility] [address] [place] [address] documented as of this encounter Procedures Procedure Name Priority Date/Time Associated Diagnosis Comments SARS-COV-2 BY MOLECULAR Routine 02/07/2022 7:08 AM CDT Encounter for screening for other viral diseases documented in this encounter Results * SARS-COV-2 BY MOLECULAR (02/07/2022 7:08 AM CDT) SARSCOV2 NOT DETECTED (Referen ce Range for this test is Not Detected ) [facility] THERMOFISHER FAST DX 02/07/2022 11:28 PM CDT [facility] Comment:This test was perfor med by a RT-PCR method. Other No Phlebotomy Charged / Unknown 02/07/2022 7:08 AM CDT 02/07/2022 11:49 AM CDT Narrative [facility] - 02/07/2022 11:28 PM CDT Authorized Fact Sheets about this test for providers and patients are available at: https://www.fda.gov/medical-devices/cnbtcxkad-ulfpwlpbaa-jrhlbro-devices/emergen cy-us e-authorizations us Markie Dey MD MICROBIOLOGY - GENERAL ORDERAB LES Final Result Performing Organization Address City/State/[facility] Co de Phone Number [facility] [address] [place] [address], documented in this encounter Visit Diagnoses Diagnosis Encounter for screening for other viral diseases documented in this encounter Additional Health Concerns Infection Onset Date Last Indicated Resolved Time COVID - 19 07/26/2021 05/30/2022 05/31/2022 12:2 3 AM CDT COVID - 19 Confirmed 05/30/2022 05/30/2022 08/2 022 12:16 AM CDT COVID - 19 08/08/2022 09/12/2022 09/22/2022 12:1 6 AM CUSTOMER ACQUISITION SPECIALIST COVID - 19 10/31/2022 01/16/2023 01/26/2023 12:1 6 AM CDT COVID - 19 09/25/2024 09/25/2024 09/25/2024 10:4 0 AM CUSTOMER ACQUISITION SPECIALIST documented as of this encounter Care Teams Neurocritical Care Physician Relationship Specialty Start Date End Date Alvaro Dinh MD [address] [facility] [address] [place] [address] PCP - General Internal Medicine 08/09/20 03/20/23 Markie Dey MD 4 [facility] [address] [place] [address] PCP - General Family Medicine 03/21/23 Edvin Zamorano MD #2 [facility] [address] [place] [address] Consulting Physician Urology 06/24/24 documented as of this encounter
--- OUTSIDE RECORDS SUMMARY | 2025-01-12 08:18 | XMS_ITS | Encounter Summary ---
Author Organization [facility] Address [address] [place] [address] Phone Care Team Providers Care News Reporter Name Role Phone Alvaro Dinh MD Primary Care Provider [phone] Markie Dey MD Primary Care Provider [phone] Edvin Zamorano MD Unavailable Encounter Details Date Type Department Care Team (Late Contact Info) Description 04/18/20[facility] 1 [place] [address] Markie Dey MD [address] [place] [address] [address] [place] [address] Encounter for screening for COVID-19 Social History [...] Description 03/12/2025 10:00 AM CDT Office Visit [facility] #2 [place] [address] Yelena Moe MD #2 [facility] [address] [place] [address] documented as of this encounter Procedures Procedure Name Priority Date/Time Associated Diagnosis Comments SARS-COV-2 BY MOLECULAR Routine 04/18/2022 7:45 AM CDT Encounter for screening for COVID-19 documented in this encounter Results * SARS-COV-2 BY MOLECULAR (04/18/2022 7:45 AM CDT) SARSCOV2 NOT DETECTED (Referen ce Range for this test is Not Detected ) [facility] THERMOFISHER FAST DX 04/19/2022 8:32 AM CDT [facility] Comment:This test was perfor med by a RT-PCR method. Other Non-Phlebotomy Collection / Unknown 04/18/2022 7:45 AM CDT 04/18/2022 11:03 AM CDT Narrative [facility] - 04/19/2022 8:32 AM CDT Authorized Fact Sheets about this test for providers and patients are available at: https://www.fda.gov/medical-devices/vsoojnhgt-gdhxhgwsoy-uqqgpfm-devices/emergen cy-us e-authorizations us Markie Dey MD MICROBIOLOGY - GENERAL ORDERAB LES Final Result [facility] [address] [place] [address], documented in this encounter Visit Diagnoses Diagnosis Encounter for screening for COVID-19 documented in this encounter Additional Health Concerns Infection Onset Date Last Indicated Resolved Time COVID - 19 07/26/2021 05/30/2022 05/31/2022 12:2 3 AM CDT COVID - 19 Confirmed 05/30/2022 05/30/2022 022 12:16 AM CDT COVID - 19 08/08/2022 09/12/2022 09/22/2022 12:1 6 AM SOFTWARE SECURITY CONSULTANT COVID - 19 10/31/2022 01/16/2023 01/26/2023 12:1 6 AM CDT COVID - 19 09/25/2024 09/25/2024 09/25/2024 10:4 0 AM SOFTWARE SECURITY CONSULTANT documented as of this encounter Care Teams News Reporter Relationship Specialty Start Date End Date Alvaro Dinh MD [address] [facility] [address] [place] [address] PCP - General Internal Medicine 08/09/20 03/20/23 Markie Dey MD [address] [facility] [address] [place] [address] PCP - General Family Medicine 03/21/23 Edvin Zamorano MD #[address] [facility] [address] [place] [address] Consulting Physician Urology 06/24/24 documented as of this encounter
--- OUTSIDE RECORDS SUMMARY | 2025-01-12 08:18 | XMS_ITS | Clinical Summary ---
Author Organization [facility] Address [address] [place] [address] Care Team Providers Care Director Talent Acquisition Name Role Phone Markie Dey MD Primary Care Provider [phone] Edvin Zamorano MD Unavailable Allergies No known active allergies Medications alendronate (Fosamax) 70 MG Tablet Take 70 mg by mouth every 7 days. Administered on fridays Active levothyroxine (SYNTHROID) 100 MCG Tablet Take 100 mcg by mouth daily. Active Calcium Polycarbophil (FIBER-LAX PO) Take 2 Capsules by mouth daily. Active folic acid (FOLVITE) 1 MG Tablet Take 1 mg by mouth daily. Active methotrexate 2.5 MG Tablet Take 20 mg by mouth every 7 days Active olopatadine (PATADAY) 0.2 % Solution Place 1 Drop in affected eye(s) daily. One drop in each eye daily. Active calcium carbonate (TUMS) 500 MG Chewable Tablet Take 1 Tablet by mouth 3 times daily. Active lisinopril (PRINIVIL, ZESTRIL) 10 MG Tablet Take 10 mg by mouth daily. Take 10mg daily at 1600. Active acetaminophen (Mapap) 325 MG Tablet Take 650 mg by mouth every 4 hours as needed for Mild or more severe pain or Fever. Active Magnesium Hydroxide (MILK OF MAGNESIA PO) Take 30 mL by mouth every 72 hours as needed. Active Neomycin-Bacitrac in-Polymyxin (Triple Antibiotic) Ointment by Apply externally route every 8 hours as needed. Max 3 doses daily. Active butenafine (Lotrimin Ultra) 1 % Cream Apply nightly. apply topically to bilateral feet daily after bathing Active tamsulosin (Flomax) 0.4 MG Capsule Take 0.4 mg by mouth nightly. Active hydroxychloroquin e (PLAQUENIL) 200 MG Tablet Take 400 mg by mouth 2 times daily. Active spironolactone (ALDACTONE) 25 MG Tablet Take 0.5 Tablets by mouth daily. 90 Tablet 02/01/20 Active amLODIPine (NORVASC) 5 MG Tablet Take 1 Tablet by mouth daily. 90 Tablet 01/31/20 Active metoprolol Succinate (TOPROL-XL) 100 MG TABLET SR 24 HR Take 1 Tablet by mouth daily. 90 Tablet 02/01/20 Active atorvastatin (LIPITOR) 10 MG Tablet Take 1 Tablet by mouth nightly. 90 Tablet 01/31/20 Active Empagliflozin (JARDIANCE) 10 MG Tablet Take 1 Tablet by mouth daily. 30 Tablet 01/31/20 Active aspirin EC 81 MG Tablet Delayed Response Take 1 Tablet by mouth daily. 30 Each 02/01/20 Active metFORMIN (GLUCOPHAGE) 500 MG Tablet Take 1 Tablet by mouth 2 times daily (with meals). 180 Tablet 01/31/20 Active finasteride (PROSCAR) 5 MG Tablet Take 1 Tablet by mouth daily. 30 Tablet 09/29/20 24 Active finasteride (PROSCAR) 5 MG Tablet Take 1 Tablet by mouth daily. 90 Tablet 3 12/11/19 Active Active Problems Problem Noted Date Diagnosed Date Obstructive uropathy 09/28/2024 Acute cystitis without hematuria 09/25/2024 Type 2 diabetes mellitus with hyperglycemia 01/04 Stage 3 chronic kidney disease 01/26/2021 UTI (urinary tract infection) 01/26/2021 Bilateral pleural effusion 01/26/2021 Acute respiratory failure with hypoxia Acute on chronic systolic HF (heart failure) Occlusive thrombus 01/19/2021 Elevated liver enzymes 01/15/2021 Cholelithiases 01/15/2021 Atrial fibrillation 01/15/2021 Enlarged prostate with urinary obstruction 01/15 FRANCINE (acute kidney injury) 01/15/2021 Hypothyroid 01/15/2021 Osteoporosis Hypertension Developmental delay disorder Resolved Problems Problem Noted Date Diagnosed Date Resolved Date Acute cystitis 01/15/2021 01/19/2021 Colitis 01/15/2021 01/19/2021 Hydroureteronephrosis 01/15/20212020 Sepsis with acute organ dysf unction and septic shock 01/15/2021 01/19/2021 Encounters Date Type Department Care Team Description 12/11/2024 10:00 AM BRYOLOGIST Office Visit [facility]Y [address] [place] [address] Yelena Moe MD Hydronephrosis due to obstruction of bladder (Primary Dx) Discharge Disposition: Discharged to home or Selfcare 12/11/2024 Travel 12/09/2024 Results Follow-Up [facility] [address] [place] [address] Edvin Zamorano MD 12/09/2024 Lab [facility] [address] [place] [address] Markie Dey MD Type 1 diabetes mellitus without complications (HCC) 11/19/2024 8:34 AM BRYOLOGIST - 11/19/2024 11:59 PM BRYOLOGIST [facility] [address] [place] [address] Edvin Zamorano MD Discharge Disposition: Discharged to home or Selfcare 11/19/2024 Travel 11/11/2024 9:45 AM BRYOLOGIST Office Visit [facility] [address] [place] [address] Edvin Zamorano MD Hydronephrosis due to obstruction of bladder (Primary Dx) Discharge Disposition: Discharged to home or Selfcare 11/11/2024 Travel 11/10/2024 Lab [facility] [address] [place] [address] Markie Dey MD Dysuria 10/21/2024 Telephone [facility] [address] [place] [address] Edvin Zamornao MD 10/21/2024 Telephone [facility] [address] [place] [phone] Edvin Zamorano MD 10/21/2024 Lab Requisition [facility] Laboratory Services [address] [place] [phone] Markie Dey MD Personal history of urinary (tract) infections 10/18/2024 Results [facility] Emergency [address] [place] [phone] Terrence Rosen RN from Last 3 Months Immunizations Immunization Administration Dates Next Due Covid-19, Mrna, Lnp-s, Pf, 3 0 Mcg/0.3 Ml Dose (Infakt.pl) 09/08/2021 Hepatitis B Vaccine 10/16/1985 Influenza Vaccine,unspecifie d Formulation 09/06/2020,08/21/2018,08/15/2017 Influenza, Injectable, Quadrivalent 07/19/2016 Influenza, Seasonal, Injecta ble, Undefined 08/04/2015,08/04/2014,08/24/2013,2011,07/24/2011 Pneumococcal Vaccine Adult - 23 Valent 08/11/2007 TD VACCINE 10/01/2002 TDAP Vaccine 09/03/2023 Zoster Vaccine Recombinant 05/19/2020 Zoster Vaccine, live 10/24/2020 Family History Relation Name Status Comments Father Mother Social History Tobacco Use Types Packs/Day Years Used Date Smoking Tobacco: Never Smokeless Tobacco: Never Tobacco Cessation:Counseling Given: Not Answered Alcohol Use Standard Drinks/Week Comments Never 0 (1 standard drink = 0.6 oz pur e alcohol) [facility] Utilities Answer Date Recorded In the past 12 months has [employer], gas, oil, or water Order Mapper threatened to shut off services in your home? Patient unable to answer 09/25/2024 Social Connection and Isolation Panel [NHANES] A nswer Date Recorded In a typical week, how many times do you talk on the phone with family, friends, or neighbors? Patient declined 09/25/2024 How often do you get togethe r with friends or relatives? Patient declined 09/25/2024 How often do you attend methodist or presybeterian serv ices? Patient declined 09/25/2024 Do you belong to any clubs o r organizations such as methodist groups, unions, fraternal or athletic groups, or [...] medical care, and heating? Patient declined 09/25/2024 [facility] - Occupational Stress Questionnaire Answer Date Recorded [...] any time in the past 12 m ont, were you homeless or living in a fpc (including now)? Patient unable to answer 09/25/2024 Sexually Active Control Partners Comments Not Currently Sex and Gender Information Value Date Recorded Sex Assigned at Not on file Legal Sex Male 7:11 PM CDT Gender Identity Not on file Sexual Orientation Not on file Last Filed Vital Signs Vital Sign Reading Time Taken Comments Blood Pressure 92/63 12/11/2024 10:19 AM BRYOLOGIST Pulse 65 12/11/2024 10:19 AM BRYOLOGIST Temperature 37.6 C (99.6 F) 10/13/2024 5:22 PM BRYOLOGIST Respiratory Rate 20 12/11/2024 10:19 AM BRYOLOGIST Oxygen Saturation 95% 12/11/2024 10:19 AM BRYOLOGIST Inhaled Oxygen Concentration - - Weight 79.8 kg (176 lb) 12/11/2024 10:19 AM BRYOLOGIST Height 185.4 cm (6' 1 ) 12/11/2024 10:19 AM BRYOLOGIST Body Mass Index 23.22 12/11/2024 10:19 AM BRYOLOGIST Plan of Treatment Upcoming Encounters Date Type Department Care Team (Late st Contact Info) Description 03/12/2025 10:00 AM CDT Office Visit [facility] [address] [place] [address] Yelena Moe MD [address], [facility] [address] [place] [address] Health Maintenance Due Date Last Done Comments Diabetes: Eye Exam 1945 Diabetes: Foot Exam 1945 Hepatitis B Immunization (2 of 3 - 19+ 3-dose series) 11/13/1985 10/16/1985 Pneumococcal Immunization (50+ years) (2 of 2 - PCV) 08/11/2008 08/11/2007 Zoster Immunization (2 of 2) 12/19/2020 10/24/2020, 05/19/2020 Respiratory Syncytial Virus (RSV) Immunization (Adult) (1 - 1-dose 75+ series) 2022 Influenza Immunization (#1) 2024 11/0 01/2020, 08/21/2018, 08/15/2017, Additional history exists SARS-COV-2 Immunization ( season) 2024 08/02/2022, 09/08/2021, 01/06/2021, Additional history exists Diabetes: Hemoglobin A1c 06/08/2025 025, 09/09/2024, 01/26/2021, Additional history exists Diabetes: Nephropathy Screening 10/13/2025 10/13/2024, 09/25/2024, 01/30/2021, Additional history exists Td Immunization Every 10 Years (Adults With 1 Tdap) 09/03/2033 09/03/2023, 10/01/2002 Pneumococcal Immunization Combined Discontinued 08/11/2007 Hepatitis C Virus (HCV) Screening Completed 01/15/2021 DTaP/Tdap/Td Immunization Discontinued 09/03/2023, Meningococcal Immunization (ACWY) Aged Out No longer eligible based on patient's age to complete this topic Rotavirus Immunization Aged Out No lo nger eligible based on patient's age to complete this topic Procedures Procedure Name Priority Date/Time Associated Diagnosis Comments DONA,POST-VOID RES,US,NON-IMAGING Routine 12/11/2024 10:00 AM BRYOLOGIST Hydronephrosis due to obstruction of bladder HEMOGLOBIN A1C W/ ESTIMATED GLUCOSE Routine 12/09/2024 7:05 AM BRYOLOGIST Type 1 diabetes mellitus without complications (HCC) US RENAL COMPLETE Routine 11/19/2024 9:1 1 AM BRYOLOGIST Hydronephrosis due to obstruction of bladder URINALYSIS REFLEX IF INDICATED BY ABNORMAL RESULTS Routine 11/09/2024 7:00 AM BRYOLOGIST Dysuria CULTURE, URINE Routine 11/09/2024 7:00 AM BRYOLOGIST Dysuria URINALYSIS REFLEX IF INDICATED BY ABNORMAL RESULTS Routine 10/20/2024 12:43 PM BRYOLOGIST Personal history of urinary (tract) infections CULTURE, URINE Routine 10/20/2024 12:43 PM BRYOLOGIST Personal history of urinary (tract) infections CMP (COMPREHENSIVE METABOLIC PANEL) STAT 10/13/2024 7:23 PM BRYOLOGIST HEPATITIS PANEL ACUTE (AHP) STAT 01/15/2021 4:38 AM CDT from Last 3 Months or Most Recently Relevant to Health Maintenance Results * DONA,POST-VOID RES,US,NON-IMAGING (12/11/2024 10:00 AM BRYOLOGIST) Narrative PeterSilva rios R - 12/11/2024 10:00 AM BRYOLOGIST Silva Green 2024 1:04 PM POCT Bladder Scan collected per standing order of Dr. Moe on 12/11/2024 PVR= 170 ML us Yelena Hopkins MD OR - SURGERY Final Result * (ABNORMAL) HEMOGLOBIN A1C W/ ESTIMATED GLUCOSE (12/09/2024 7:05 AM BRYOLOGIST) HGB-A1C 7.8(H) 4.0 - 6.0 % 12/09/2024 9:10 AM BRYOLOGIST [facility] Est Average Glucose 177.2 mg/dL 12/09/2024 9:10 AM [facility]IST [facility] Blood Venipuncture / Unknown 12/09/2024 7:05 AM BRYOLOGIST 12/09/2024 7:49 AM BRYOLOGIST [facility]ative [facility] - 12/09/2024 9:10 AM BRYOLOGIST HEMOGLOBIN A1C: DIABETIC PATIENTS: WELL-CONTROLLED: 6.2 - 7.0 INTERMEDIATE WELL-CONTROLLED: 7.0 - 9.0 POORLY-CONTROLLED: >9.0 Specimens containing greater than 5% of Hemoglobin F may result in lower than expected % HbA1C results. Markie Dey MD CHEMISTRY ORDERABLES Final Res ult [facility] [address] [facility] [place] [address] * US RENAL COMPLETE (11/19/2024 9:11 AM BRYOLOGIST) Anatomical Region Laterality Modality , Abdomen N/A Ultrasound 11/21/2024 11:5 3 AM BRYOLOGIST Impressions 11/21/2024 11:56 AM BRYOLOGIST IMPRESSION: Moderate bilateral hydronephrosis. There is diffuse thickening of the urinary bladder. Prostate measures a maximum of 3.6 x 3.3 x 3.7 cm. Narrative 11/21/2024 11:56 AM BRYOLOGIST EXAM DESCRIPTION: US RENAL COMPLETE REASON FOR STUDY: Hydronephrosis due to obstruction of bladder. Evaluate for prostate size. TECHNIQUE: Ultrasound of the kidneys and urinary bladder was performed with grayscale imaging. COMPARISON: Ultrasound dated October 07, 2024 FINDINGS: RIGHT KIDNEY: The right kidney measures 10.6 cm in length. There is moderate hydronephrosis. There is normal cortical thickness and echogenicity. LEFT KIDNEY: The left kidney measures 10.3 cm in length. There is moderate hydronephrosis. There is normal cortical thickness and echogenicity. URINARY BLADDER: There is diffuse thickening of the urinary bladder. OTHER: The prostate measures a maximum of 3.6 x 3.3 x 3.7 cm. THIS IS AN ELECTRONICALLY VERIFIED FINAL REPORT 11/21/2024 11:53 AM - Electronically signed by Saleem López M.D. JA: MARIANNE Report ID: [id number] Reading Location: [id number] Procedure Note Saleem López MD - 11/21/2024 EXAM DESCRIPTION: US RENAL COMPLETE REASON FOR STUDY: Hydronephrosis due to obstruction of bladder. Evaluate for prostate size. TECHNIQUE: Ultrasound of the kidneys and urinary bladder was performed with grayscale imaging. COMPARISON: Ultrasound dated October 07, 2024 FINDINGS: RIGHT KIDNEY: The right kidney measures 10.6 cm in length. There is moderate hydronephrosis. There is normal cortical thickness and echogenicity. LEFT KIDNEY: The left kidney measures 10.3 cm in length. There is moderate hydronephrosis. There is normal cortical thickness and echogenicity. URINARY BLADDER: There is diffuse thickening of the urinary bladder. OTHER: The prostate measures a maximum of 3.6 x 3.3 x 3.7 cm. THIS IS AN ELECTRONICALLY VERIFIED FINAL REPORT 11/21/2024 11:53 AM - Electronically signed by Saleem López M.D. JA: MARIANNE Report ID: [id number] Reading Location: [place] [address] IMPRESSION: Moderate bilateral hydronephrosis. There is diffuse thickening of the urinary bladder. Prostate measures a maximum of 3.6 x 3.3 x 3.7 cm. us Edvin Zamoraon MD [facility] US ORDERABLES Final Result * (ABNORMAL) URINALYSIS REFLEX IF INDICATED BY ABNORMAL RESULTS (11/09/2024 7:00 AM BRYOLOGIST) Only the most recent of2 resultswithin the time period is included. SPECIFIC GRAVITY 1.015 1.003 - 1.030 11/10/2024 7:03 AM [facility] URINE PH 5.0 5.0 - 9.0 11/10/2024 7:03 AM [facility] WBC ESTERASE 500 /uL(A) Negative 11/10/2024 7:03 AM [facility] NITRITE Negative Negative 11/10/2024 7:03 AM [facility] PROTEIN, RANDOM URINE 100 mg/dL(A) Negative 11/10/2024 7:03 AM [facility] URINE GLUCOSE, QUAL 250 mg/dL(A) Negative 11/10/2024 7:03 AM [facility] URINE KETONES Negative Negative 11/10/2024 7:03 AM [facility] UROBILINOGEN Normal Normal mg/dL 11/10/2024 7:03 AM [facility] URINE BLOOD 50 /uL(A) Negative marisel/ul 11/10/2024 7:03 AM BRYOLOGIST [facility] URINALYSIS COLOR Yellow 11/10/2024 7:03 AM BRYOLOGIST [facility] URINALYSIS CLARITY Slightly Cloudy 11/10/2024 7:03 AM BRYOLOGIST [facility] WBC (Urine) Packed(A) Negative, 0-5 /hpf 11/10/2024 7:03 AM BRYOLOGIST [facility] URINE RBC'S 11-20(A) Negative, 0-2 /hpf 11/10/2024 7:03 AM BRYOLOGIST [facility] EPITHELIAL CELLS Occasional /lpf 11/10/2024 7:03 AM BRYOLOGIST [facility] BACTERIA, URINE Many(A) Negative /hpf 11/10/2024 7:03 AM BRYOLOGIST [facility] URINE MUCOUS Few 11/10/2024 7:03 AM BRYOLOGIST [facility] Urine (Indwelling Catheter) Non-Phlebotomy Collection / Unknown 11/09/2024 7:00 AM BRYOLOGIST 11/10/2024 6:35 AM BRYOLOGIST us Markie Dey MD URINE ORDERABLES Final Result [facility] [address] [place] [address] * CULTURE, URINE (11/09/2024 7:00 AM BRYOLOGIST) Only the most recent of2 resultswithin the time period is included. CULTURE RESULTS PSEUDOMONAS AERUGINOSA 11/13/2024 1:37 PM BRYOLOGIST [facility] CULTURE RESULTS JOVON ALBICANS 11/13/2024 1:37 PM BRYOLOGIST [facility] Comment: SENSITIVITY NOT PERFORMED Organism Corrected Urine (Indwelling Catheter) Non-Phlebotomy Collection / Unknown 11/09/2024 7:00 AM BRYOLOGIST 11/10/2024 6:35 AM BRYOLOGIST Narrative Organism Antibiotic Method Susceptibility Pseudomonas aeruginosa Cefepime [facility] 2 mcg/ml: Susceptible Pseudomonas aeruginosa Gentamicin [facility] Resistant Pseudomonas aeruginosa Levofloxacin [facility] 2 mcg/ml: Intermediate Pseudomonas aeruginosa Meropenem [facility] 1 mcg/ml: Susceptible Pseudomonas aeruginosa Tobramycin [facility] <=1 mcg/ml: Susceptible Pseudomonas aeruginosa Piperacillin/Tazobactam CHAY[place]O [employer] WAYNE 24 mm: Susceptible us Markie Dey MD MICROBIOLOGY - GENERAL ORDERAB LES Edited Result - Final [facility] [address] [place] [address], * (ABNORMAL) CMP (10/13/2024 7:23 PM BRYOLOGIST) SODIUM 133(L) 136 - 145 mmol/L 10/13/2024 8:03 PM [facility] POTASSIUM 4.2 3.5 - 5.1 mmol/L 10/13/2024 8:03 PM [facility] CHLORIDE 104 98 - 107 mmol/L 10/13/2024 8:03 PM [facility] CO2, VENOUS 22 22 - 30 mmol/L 10/13/2024 8:03 PM [facility] ANION GAP 11.2 <18.0 mmol/L 10/13/2024 8:03 PM [facility] GLUCOSE 169(H) 70 - 99 mg/dL 10/13/2024 8:03 PM [facility] BUN 39(H) 8 - 26 mg/dL 10/13/2024 8:03 PM [facility] CREATININE, BLOOD 2.61(H) 0.70 - 1.30 mg/dL 10/13/2024 8:03 PM [facility] BUN/CREATININE RATIO 15 12 - 20 ratio 10/13/2024 8:03 PM [facility] TOTAL PROTEIN 7.2 6.3 - 8.2 g/dL 10/13/2024 8:03 PM [facility] ALBUMIN 3.5 3.5 - 5.0 g/dL 10/13/2024 8:03 PM [facility] A/G RATIO 0.9(L) 1.0 - 2.2 10/13/2024 8:03 PM BRYOLOGIST [facility] CALCIUM 9.3 8.7 - 10.5 mg/dL 10/13/2024 8:03 PM BRYOLOGIST [facility] T BILI 0.8 0.2 - 1.2 mg/dL 10/13/2024 8:03 PM BRYOLOGIST [facility] SGOT (AST) 13 5 - 34 U/L 10/13/2024 8:03 PM BRYOLOGIST [facility] SGPT (ALT) 11 0 - 55 U/L 10/13/2024 8:03 PM [facility] ALKALINE PHOSPHATASE 73 40 - 150 U/L 10/13/2024 8:03 PM BRYOLOGIST [facility] GFR, ESTIMATED 25(L) >=60 10/13/2024 8:03 PM [facility] Comment: Creatinine Clearance is the preferred criteria for selecting drug dose adjustments in renally impaired patients. The GFR is provided as additional pertinent clinical information. GFR is reported in mL/min/1.73 sq m. Calculation based on the Chronic Kidney Disease Epidemiology Collaboration (CKD- EPI) equation refit without adjustment for race. GFR, EST. 29(L) >=60 024 8:03 PM BRYOLOGIST [facility] GFR, EST. NONAFRICAN 24(L) >=60 10/13/2024 8:03 PM [facility] Blood Venipuncture / Unknown 10/13/2024 7:23 PM BRYOLOGIST 10/13/2024 7:31 PM BRYOLOGIST us Scooby Damon MD CHEMISTRY ORDERABLES Alaina l Result [facility] #[address] [place] [address] * Hepatitis Panel Acute (AHP) (01/15/2021 4:38 AM CDT) HEPATITIS A IGM ANTIBODY NON DETECTED NON DETECTED [facility] [id number] 01/15/2021 2:01 PM CDT [facility] Comment: IGM Antibodies to HAV not detected. Does not exclude early acute or recovered HAV infection. HEP B CORE AB (IGM) NON DETECTED NON DETECTED [facility] [id number] 01/15/2021 2:01 PM CDT [facility] Comment:IGM anti-HBC not det ected. Does not exclude the possibility of exposure to or infection with HBV. HEPATITIS B SURFACE ANTIGEN NON DETECTED NON DETECTED [place] [id number] B 01/15/2021 2:01 PM CDT [facility] Comment:A nonreactive test r esult does not exclude the possibility of exposure to or infection with Hepatitis B virus. A nonreactive test result in individuals with prior exposure to hepatitis B may be due to antigen levels below the detection limit of this assay or lack of antigen reactivity to the antibodies in this assay. hepatitis C antibody 0.10 <1 S/CO [place] [id number] B 01/15/2021 2:01 PM CDT [facility] Comment: Signal/Cutoff ratio < 0.79 is Nondetected Signal/Cutoff ratio 0.80-0.99 is Grayzone Signal/Cutoff ratio > 0.99 is Detected Supplemental assays are recommended if signal/cutoff ratio is >/=1.00. Signal/cutoff ratio result >/= 5.00 is 97% predictive of positivity for recombinant immunoblot assay (RIBA) and will be reported to the [place] Department of Public Health as required. Blood Venipuncture / Unknown 01/15/2021 4:38 AM CDT 01/15/2021 4:44 AM CDT us Ruma Pink ASSOCIATE ATTORNEY, ENGINE RESEARCH ENGINEER HEMATOLOGY ORDERABLES Final Result [facility] [address] [place] [address], [place] from Last 3 Months or Most Recently Relevant to Health Maintenance Insurance MEDICAID [place] MEDICARE C [facility] Advance Directives Documents on File Type Date Recorded Patient Avionics Systems Technician Expl anation POLST/POST/CT DNR 01/14/2021 10:25 PM DNR 09/17/2006 POLST/POST/CT DNR 01/14/2021 10:21 PM POLS T 01/08/2018 * Full Code (Latest Code Status on File) Date Activated Date Inactivated Comments 09/25/2024 6:25 PM CPR-Full Marilin tment: FULL ARREST: Attempt Resuscitation/CPR wit intubation and mechanical ventilation. PRE-ARREST: Use entire range of life support measures to stabilize the patient. * No CPR-Selective Treatment Date Activated Date Inactivated Comments 01/26/2021 9:50 PM 01/30/2021 5:04 PM No CPR - [place] ective Treatment: FULL ARREST: Do Not Attempt Resuscitation. PRE-ARREST: DO NOT USE INTUBATION OR MECHANICAL VENTILATION, but may use basic medical treatment like CPAP or BiPAP, antibiotics, IV fluids, oxygen, etc. Avoid care in ICU setting. Question Answer Comments Physician documentation made in notes? Yes * No CPR-Selective Treatment Date Activated Date Inactivated Comments 01/15/2021 3:21 AM 01/19/2021 5:47 PM No CPR - [place] ective Treatment: FULL ARREST: Do Not Attempt Resuscitation. PRE-ARREST: DO NOT USE INTUBATION OR MECHANICAL VENTILATION, but may use basic medical treatment like CPAP or BiPAP, antibiotics, IV fluids, oxygen, etc. Avoid care in ICU setting. Question Answer Comments Physician documentation made in notes? Yes Care Teams Director Talent Acquisition Relationship Specialty Start Date End Date Markie Dey MD [address] [place] [address] PCP - General Family Medicine 03/21/23 Edvin Zamorano MD [address] [place] [address] Consulting Physician Urology 06/24/24
--- OUTSIDE RECORDS SUMMARY | 2025-01-12 08:18 | XMS_ITS | Encounter Summary ---
Author Organization [facility] Address [address] [place] [address] Phone Care Team Providers Care Emt Intermediate Name Role Phone Alvaro Dinh MD Primary Care Provider [phone] Markie Dey MD Primary Care Provider [phone] Edvin Zamorano MD Unavailable Encounter Details Date Type Department Care Team (Late Contact Info) Description 11/15/2021 [facility] 1 [place] [address] Markie Dey MD [address] [place] [address] [address] [place] [address] Social History Tobacco Use Types Packs/Day Years [...] Description 03/12/2025 10:00 AM CDT Office Visit [facility] UROLOGY #2 [place] [address] Yelena Moe MD #2 [facility] [address] [place] [address] documented as of this encounter Procedures Procedure Name Priority Date/Time Associated Diagnosis Comments SARS-COV-2 BY MOLECULAR Routine 11/15/2021 7:23 AM DIFFERENTIAL REPAIRER documented in this encounter Results * SARS-COV-2 BY MOLECULAR (11/15/2021 7:23 AM DIFFERENTIAL REPAIRER) SARSCOV2 NOT DETECTED (Referen ce Range for this test is Not Detected ) [facility] THERMOFISHER FAST DX 11/17/2021 6:12 AM DIFFERENTIAL REPAIRER [facility] Comment:This test was perfor med by a RT-PCR method. Other Non-Phlebotomy Collection / Unknown 11/15/2021 7:23 AM DIFFERENTIAL REPAIRER 11/15/2021 11:30 AM DIFFERENTIAL REPAIRER Narrative [facility] - 11/17/2021 6:12 AM DIFFERENTIAL REPAIRER Authorized Fact Sheets about this test for providers and patients are available at: https://www.fda.gov/medical-devices/wqlklbmif-vdkywmbmhg-blmuhkf-devices/emergen cy-us e-authorizations us Markie Dey MD MICROBIOLOGY - GENERAL ORDERAB LES Final Result [facility] [address] [place] [address], documented in this encounter Visit Diagnoses Not on filedocumented in this encounter Additional Health Concerns Infection Onset Date Last Indicated Resolved Time COVID - 19 07/26/2021 05/30/2022 05/31/2022 12:2 3 AM CDT COVID - 19 Confirmed 05/30/2022 05/30/2022 0816/2 022 12:16 AM CDT COVID - 19 08/08/2022 09/12/2022 09/22/2022 12:1 6 AM DIFFERENTIAL REPAIRER COVID - 19 10/31/2022 01/16/2023 01/26/2023 12:1 6 AM CDT COVID - 19 09/25/2024 09/25/2024 09/25/2024 10:4 0 AM DIFFERENTIAL REPAIRER documented as of this encounter Care Teams Emt Intermediate Relationship Specialty Start Date End Date Alvaro Dinh MD [address] [place] [address] PCP - General Internal Medicine 08/09/20 03/20/23 Markie Dey MD 4 [facility] [address] [place] [address] PCP - General Family Medicine 03/21/23 Edvin Zamorano MD #2 [facility] [address] [place] [address] Consulting Physician Urology 06/24/24 documented as of this encounter
--- OUTSIDE RECORDS SUMMARY | 2025-01-12 08:18 | XMS_ITS | Encounter Summary ---
Author Organization [facility] Address [address] [place] [address] Phone Care Team Providers Care Director Of Finance Name Role Phone Alvaro Dinh MD Primary Care Provider [phone] Markie Dey MD Primary Care Provider [phone] Edvin Zamorano MD Unavailable Encounter Details Date Type Department Care Team (Late Contact Info) Description 01/03/2022 [facility] 1 [place] [address] Markie Dey MD [address] [place] [address] [address] [place] [address] Encounter for screening for COVID-19 Social History [...] Description 03/12/2025 10:00 AM CDT Office Visit [facility] UROLOGY #2 [place] [address] Yelena Moe MD #2 [facility] [address] [place] [address] documented as of this encounter Procedures Procedure Name Priority Date/Time Associated Diagnosis Comments SARS-COV-2 BY MOLECULAR Routine 01/03/2022 7:19 AM PC TECH Encounter for screening for COVID-19 documented in this encounter Results * SARS-COV-2 BY MOLECULAR (01/03/2022 7:19 AM PC TECH) SARSCOV2 NOT DETECTED (Referen ce Range for this test is Not Detected ) [facility] THERMOFISHER FAST DX 01/04/2022 12:19 AM PC TECH [facility] Comment:This test was perfor med by a RT-PCR method. Other Non-Phlebotomy Collection / Unknown 01/03/2022 7:19 AM PC TECH 01/03/2022 11:42 AM PC TECH Narrative [facility] - 01/04/2022 12:19 AM PC TECH Authorized Fact Sheets about this test for providers and patients are available at: https://www.fda.gov/medical-devices/ccrncfexs-hsiukjnthc-esthsno-devices/emergen -us e-authorizations us Markie Dey MD MICROBIOLOGY - GENERAL ORDERAB LES Final Result [facility] [address] [place] [address], documented in this encounter Visit Diagnoses Diagnosis Encounter for screening for COVID-19 documented in this encounter Additional Health Concerns Infection Onset Date Last Indicated Resolved Time COVID - 19 07/26/2021 05/30/2022 05/31/2022 12:2 3 AM CDT COVID - 19 Confirmed 05/30/2022 05/30/2022 08/2 022 12:16 AM CDT COVID - 19 08/08/2022 09/12/2022 09/22/2022 12:1 6 AM PC TECH COVID - 19 10/31/2022 01/16/2023 01/26/2023 12:1 6 AM CDT COVID - 19 09/25/2024 09/25/2024 09/25/2024 10:4 0 AM PC TECH documented as of this encounter Care Teams Director Of Finance Relationship Specialty Start Date End Date Alvaro Dinh MD [address] [facility] [address] [place] [address] PCP - General Internal Medicine 08/09/20 03/20/23 Markie Dey MD 4 [facility] [address] [place] [address] PCP - General Family Medicine 03/21/23 Edvin Zamorano MD #2 [facility] [address] [place] [address] Consulting Physician Urology 06/24/24 documented as of this encounter
--- OUTSIDE RECORDS SUMMARY | 2025-01-12 08:18 | XMS_ITS | Encounter Summary ---
Author Organization [facility] Address [address] [place] [address] Phone Care Team Providers Care Neon Glass Bender Name Role Phone Alvaro Dinh MD Primary Care Provider [phone] Markie Dey MD Primary Care Provider [phone] Edvin Zamorano MD Unavailable Encounter Details Date Type Department Care Team (Late Contact Info) Description 08/16/2021 [facility] 1 [place] [address] Markie Dey MD [address] [place] [address] [address] [place] [address] Encounter for screening for COVID-19 Social History [...] Description 03/12/2025 10:00 AM CDT Office Visit [facility] UROLOGY #2 [place] [address] Yelena Moe MD #2 [facility] [address] [place] [address] documented as of this encounter Procedures Procedure Name Priority Date/Time Associated Diagnosis Comments SARS-COV-2 BY MOLECULAR Routine 08/16/2021 8:02 AM CDT Encounter for screening for COVID-19 documented in this encounter Results * SARS-COV-2 BY MOLECULAR (08/16/2021 8:02 AM CDT) SARSCOV2 NOT DETECTED (Referen ce Range for this test is Not Detected ) [facility] THERMOFISHER FAST DX 08/17/2021 7:14 AM CDT [facility] Comment:This test was perfor med by a RT-PCR method. Other Non-Phlebotomy Collection / Unknown 08/16/2021 8:02 AM CDT 08/16/2021 10:48 AM CDT Narrative [facility] - 08/17/2021 7:14 AM CDT Authorized Fact Sheets about this test for providers and patients are available at: https://www.fda.gov/medical-devices/xkxedbyiw-pchrxwfqhc-xwgyyle-devices/emergen cy-us e-authorizations us Markie Dey MD MICROBIOLOGY - GENERAL ORDERAB LES Final Result [facility] [address] [place] [address], documented in this encounter Visit Diagnoses Diagnosis Encounter for screening for COVID-19 documented in this encounter Additional Health Concerns Infection Onset Date Last Indicated Resolved Time COVID - 19 07/26/2021 05/30/2022 05/31/2022 12:2 3 AM CDT COVID - 19 Confirmed 05/30/2022 05/30/2022 0816/2 022 12:16 AM CDT COVID - 19 08/08/2022 09/12/2022 09/22/2022 12:1 6 AM ENVIRONMENT COORDINATOR COVID - 19 10/31/2022 01/16/2023 01/26/2023 12:1 6 AM CDT COVID - 19 09/25/2024 09/25/2024 09/25/2024 10:4 0 AM ENVIRONMENT COORDINATOR documented as of this encounter Care Teams Neon Glass Bender Relationship Specialty Start Date End Date Alvaro Dinh MD [address] [facility] [address] [place] [address] PCP - General Internal Medicine 08/09/20 03/20/23 Markie Dey MD 4 [facility] [address] [place] [address] PCP - General Family Medicine 03/21/23 Edvin Zamorano MD #2 [facility] [address] [place] [address] Consulting Physician Urology 06/24/24 documented as of this encounter
--- OUTSIDE RECORDS SUMMARY | 2025-01-12 08:18 | XMS_ITS | Encounter Summary ---
Author Organization [facility] Address [address] [place] [address] Phone Care Team Providers Care Tag Marker Name Role Phone Markie Dey MD Primary Care Provider [phone] Edvin Zamorano MD Unavailable Encounter Details Date Type Department Care Team (Late st Contact Info) Description 11/10/2024 Lab Requisition [facility] Laboratory Services 1 [place] [address] Markie Dey MD [address] [place] [address] [facility] [address] [place] [address] Dysuria Social History Tobacco Use Types Packs/Day Years Used Date Smoking Tobacco: Never Smokeless Tobacco: Never Alcohol Use Standard Drinks/Week Comments Never 0 (1 standard drink = 0.6 oz pur e alcohol) [facility] Utilities Answer Date Recorded In the past 12 months has [employer] electric, gas, oil, or water company threatened [...] declined 09/25/2024 How often do you attend episcopal or oriental orthodox serv ices? Patient declined 09/25/2024 Do you belong to any clubs o r organizations such as episcopal groups, unions, fraternal or athletic groups, or [...] medical care, and heating? Patient declined 09/25/2024 [facility] - Occupational Stress [...] any time in the past 12 m [facility], were you homeless or living in a fdc (including now)? Patient unable to answer 09/25/2024 [...] Description 03/12/2025 10:00 AM CDT Office [facility] #2 [place] [address] Yelena Moe MD #2 [facility] [address] [address] documented as of this encounter Procedures Procedure Name Priority Date/Time Associated Diagnosis Comments URINALYSIS REFLEX IF INDICATED BY ABNORMAL RESULTS Routine 11/09/2024 7:00 AM TAX INTERN Dysuria CULTURE, URINE Routine 11/09/2024 7:00 AM TAX INTERN Dysuria documented in this encounter Results * CULTURE, URINE (11/09/2024 7:00 AM TAX INTERN) CULTURE RESULTS PSEUDOMONAS AERUGINOSA 11/13/2024 1:37 PM TAX INTERN [facility] CULTURE RESULTS JOVON ALBICANS 11/13/2024 1:37 PM TAX INTERN [facility] Comment: SENSITIVITY NOT PERFORMED Organism Corrected Urine (Indwelling Catheter) Non-Phlebotomy Collection / Unknown 11/09/2024 7:00 AM TAX INTERN 11/10/2024 6:35 AM TAX INTERN Narrative Organism Antibiotic Method Susceptibility Pseudomonas aeruginosa Cefepime [facility] IIB 2 mcg/ml: Susceptible Pseudomonas aeruginosa Gentamicin [facility] IIB Resistant Pseudomonas aeruginosa Levofloxacin [facility] IIB 2 mcg/ml: Intermediate Pseudomonas aeruginosa Meropenem [facility] IIB 1 mcg/ml: Susceptible Pseudomonas aeruginosa Tobramycin [facility] IIB <=1 mcg/ml: Susceptible Pseudomonas aeruginosa Piperacillin/Tazobactam [facility] [place] 24 mm: Susceptible us Markie Dey MD MICROBIOLOGY - GENERAL ORDERAB LES Edited Result - Final [facility] [address] [place] [address], [place] * (ABNORMAL) URINALYSIS REFLEX IF INDICATED BY ABNORMAL RESULTS (11/09/2024 7:00 AM TAX INTERN) SPECIFIC GRAVITY 1.015 1.003 - 1.030 11/10/2024 7:03 AM TAX INTERN [facility] URINE PH 5.0 5.0 - 9.0 11/10/2024 7:03 AM [facility] WBC ESTERASE 500 /uL(A) Negative 11/10/2024 7:03 AM [facility] NITRITE Negative Negative 11/10/2024 7:03 AM [facility] PROTEIN, RANDOM URINE 100 mg/dL(A) Negative 11/10/2024 7:03 AM [facility] URINE GLUCOSE, QUAL 250 mg/dL(A) Negative 11/10/2024 7:03 AM [facility] URINE KETONES Negative Negative 11/10/2024 7:03 AM [facility] UROBILINOGEN Normal Normal mg/dL 11/10/2024 7:03 AM [facility] URINE BLOOD 50 /uL(A) Negative marisel/ul 11/10/2024 7:03 AM [facility] URINALYSIS COLOR Yellow 11/10/2024 7:03 AM [facility] URINALYSIS CLARITY Slightly Cloudy 11/10/2024 7:03 AM [facility] WBC (Urine) Packed(A) Negative, 0-5 /hpf 11/10/2024 7:03 AM [facility] URINE RBC'S 11-20(A) Negative, 0-2 /hpf 11/10/2024 7:03 AM TAX INTERN [facility] EPITHELIAL CELLS Occasional /lpf 11/10/2024 7:03 AM TAX INTERN [facility] BACTERIA, URINE Many(A) Negative /hpf 11/10/2024 7:03 AM TAX INTERN [facility] URINE MUCOUS Few 11/10/2024 7:03 AM TAX INTERN [facility] Urine (Indwelling Catheter) Non-Phlebotomy Collection / Unknown 11/09/2024 7:00 AM TAX INTERN 11/10/2024 6:35 AM TAX INTERN us Markie Dey MD URINE ORDERABLES Final Result [facility] #[address] [place] [address] documented in this encounter Visit Diagnoses Diagnosis Dysuria documented in this encounter Care Teams Tag Marker Relationship Specialty Start Date End Date Markie Dey MD [address] [facility] [address] [place] [address] PCP - General Family Medicine 03/21/23 Edvin Zamorano MD #2 [facility] [address] [place] [address] Consulting Physician Urology 06/24/24 documented as of this encounter
--- OUTSIDE RECORDS SUMMARY | 2025-01-12 08:18 | XMS_ITS | Encounter Summary ---
Author Organization [facility] Address [address] [place] [address] Phone Care Team Providers Care Casting Molder Name Role Phone Alvaro Dinh MD Primary Care Provider [phone] Markie Dey MD Primary Care Provider Edvin Zamorano MD Unavailable Encounter Details Date Type Department Care Team (Late Contact Info) Description 08/23/2021 [facility] 1 [place] [address] Markie Dey MD [address] [place] [address] [address] [place] [address] Social History Tobacco Use Types Packs/Day Years [...] Description 03/12/2025 10:00 AM CDT Office Visit [facility] UROLOGY #2 [place] [address] Yelena Moe MD #2 [facility] [address] [place] [address] documented as of this encounter Procedures Procedure Name Priority Date/Time Associated Diagnosis Comments SARS-COV-2 BY MOLECULAR Routine 08/23/2021 7:47 AM CDT documented in this encounter Results * SARS-COV-2 BY MOLECULAR (08/23/2021 7:47 AM CDT) SARSCOV2 NOT DETECTED (Referen ce Range for this test is Not Detected ) [facility] THERMOFISHER FAST DX 08/23/2021 5:44 PM CDT [facility] Comment:This test was perfor med by a RT-PCR method. Other Non-Phlebotomy Collection / Unknown 08/23/2021 7:47 AM CDT 08/23/2021 10:59 AM CDT Narrative [facility] - 08/23/2021 5:44 PM CDT Authorized Fact Sheets about this test for providers and patients are available at: https://www.fda.gov/medical-devices/lefmrjzfd-vmpyvzfkno-qkebxtz-devices/emergen cy-us e-authorizations us Markie Dey MD MICROBIOLOGY - GENERAL ORDERAB LES Final Result [facility] [address] [place] [address], documented in this encounter Visit Diagnoses Not on filedocumented in this encounter Additional Health Concerns Infection Onset Date Last Indicated Resolved Time COVID - 19 07/26/2021 05/30/2022 05/31/2022 12:2 3 AM CDT COVID - 19 Confirmed 05/30/2022 05/30/2022 022 12:16 AM CDT COVID - 19 08/08/2022 09/12/2022 09/22/2022 12:1 6 AM OPERATOR RECEPTIONIST COVID - 19 10/31/2022 01/16/2023 01/26/2023 12:1 6 AM CDT COVID - 19 09/25/2024 09/25/2024 09/25/2024 10:4 0 AM OPERATOR RECEPTIONIST documented as of this encounter Care Teams Casting Molder Relationship Specialty Start Date End Date Alvaro Dinh MD [address] [facility] [address] [place] [address] PCP - General Internal Medicine 08/09/20 03/20/23 Markie Dey MD [address] [facility] [address] [place] [address] PCP - General Family Medicine 03/21/23 Edvin Zamorano MD #2 [facility] [address] [place] [address] Consulting Physician Urology 06/24/24 documented as of this encounter
--- OUTSIDE RECORDS SUMMARY | 2025-01-12 08:18 | XMS_ITS | Encounter Summary ---
Author Organization [facility] Address [address] [place] [address] Phone Care Team Providers Care Technical Training Specialist Name Role Phone Alvaro Dinh MD Primary Care Provider [phone] Markie Dey MD Primary Care Provider [phone] Edvin Zamorano MD Unavailable Encounter Details Date Type Department Care Team (Late Contact Info) Description 10/18/2021 [facility] 1 [place] [address] Markie Dey MD [address] [place] [address] [address] [place] [address] Encounter for screening for COVID-19 Social History [...] Description 03/12/2025 10:00 AM CDT Office Visit [facility] UROLOGY #2 [place] [address] Yelena Moe MD #2 [facility] [address] [place] [address] documented as of this encounter Procedures Procedure Name Priority Date/Time Associated Diagnosis Comments SARS-COV-2 BY MOLECULAR Routine 10/18/2021 7:59 AM MAINTENANCE AND OPERATIONS SUPERVISOR Encounter for screening for COVID-19 documented in this encounter Results * SARS-COV-2 BY MOLECULAR (10/18/2021 7:59 AM MAINTENANCE AND OPERATIONS SUPERVISOR) SARSCOV2 NOT DETECTED (Referen ce Range for this test is Not Detected ) [facility] THERMOFISHER FAST DX 10/20/2021 8:25 AM MAINTENANCE AND OPERATIONS SUPERVISOR [facility] Comment:This test was perfor med by a RT-PCR method. Other No Phlebotomy Charged / Unknown 10/18/2021 7:59 AM MAINTENANCE AND OPERATIONS SUPERVISOR 10/18/2021 11:28 AM MAINTENANCE AND OPERATIONS SUPERVISOR N[facility]ative [facility] 10/20/2021 8:25 AM MAINTENANCE AND OPERATIONS SUPERVISOR Authorized Fact Sheets about this test for providers and patients are available at: https://www.fda.gov/medical-devices/lezvpudzj-soeelgufoq-qatdyax-devices/emergen -us e-authorizations us Markie Dey MD MICROBIOLOGY - GENERAL ORDERAB LES Final Result [facility] [address] [place] [address], documented in this encounter Visit Diagnoses Diagnosis Encounter for screening for COVID-19 documented in this encounter Additional Health Concerns Infection Onset Date Last Indicated Resolved Time COVID - 19 07/26/2021 05/30/2022 05/31/2022 12:2 3 AM CDT COVID - 19 Confirmed 05/30/2022 05/30/2022 08/2 022 12:16 AM CDT COVID - 19 08/08/2022 09/12/2022 09/22/2022 12:1 6 AM MAINTENANCE AND OPERATIONS SUPERVISOR COVID - 19 10/31/2022 01/16/2023 01/26/2023 12:1 6 AM CDT COVID - 19 09/25/2024 09/25/2024 09/25/2024 10:4 0 AM MAINTENANCE AND OPERATIONS SUPERVISOR documented as of this encounter Care Teams Technical Training Specialist Relationship Specialty Start Date End Date Alvaro Dinh MD [address] [facility] [address] [place] [address] PCP - General Internal Medicine 08/09/20 03/20/23 Markie Dey MD 4 [facility] [address] [place] [address] PCP - General Family Medicine 03/21/23 Edvin Zamorano MD #2 [facility] [address] [place] [address] Consulting Physician Urology 06/24/24 documented as of this encounter
--- OUTSIDE RECORDS SUMMARY | 2025-01-12 08:18 | XMS_ITS | Encounter Summary ---
Author Organization [facility] Address [address] [place] [address] Phone Care Team Providers Care Software Engineering Specialist Name Role Phone Alvaro Dinh MD Primary Care Provider [phone] Markie Dey MD Primary Care Provider [phone] Edvin Zamorano MD Unavailable Encounter Details Date Type Department Care Team (Late Contact Info) Description 08/09/2021 [facility] 1 [place] [address] Markie Dey MD [address] [place] [address] [address] [place] [address] Social History Tobacco Use Types Packs/Day Years [...] Description 03/12/2025 10:00 AM CDT Office Visit [facility] UR[facility]Y #2 [place] [address] Yelena Moe MD #2 [facility] [address] [place] [address] documented as of this encounter Procedures Procedure Name Priority Date/Time Associated Diagnosis Comments SARS-COV-2 BY MOLECULAR Routine 08/09/2021 8:10 AM CDT documented in this encounter Results * SARS-COV-2 BY MOLECULAR (08/09/2021 8:10 AM CDT) SARSCOV2 NOT DETECTED (Referen ce Range for this test is Not Detected ) [facility] THERMOFISHER FAST DX 08/10/2021 6:22 AM CDT [facility] Comment:This test was perfor med by a RT-PCR method. Other Non-Phlebotomy Collection / Unknown 08/09/2021 8:10 AM CDT 08/09/2021 10:16 AM CDT Narrative [facility] - 08/10/2021 6:22 AM CDT Authorized Fact Sheets about this test for providers and patients are available at: https://www.fda.gov/medical-devices/zzeiwfotr-mlcywjwqho-rbmygxl-devices/emergen cy-us e-authorizations us Markie Dey MD MICROBIOLOGY - GENERAL ORDERAB LES Final Result [facility] [address] [place] [address], documented in this encounter Visit Diagnoses Not on filedocumented in this encounter Additional Health Concerns Infection Onset Date Last Indicated Resolved Time COVID - 19 07/26/2021 05/30/2022 05/31/2022 12:2 3 AM CDT COVID - 19 Confirmed 05/30/2022 05/30/2022 08 022 12:16 AM CDT COVID - 19 08/08/2022 09/12/2022 09/22/2022 12:1 6 AM MAGNETO ELECTRICIAN COVID - 19 10/31/2022 01/16/2023 01/26/2023 12:1 6 AM CDT COVID - 19 09/25/2024 09/25/2024 09/25/2024 10:4 0 AM MAGNETO ELECTRICIAN documented as of this encounter Care Teams Software Engineering Specialist Relationship Specialty Start Date End Date Alvaro Dinh MD [address] [facility] [address] [place] [address] PCP - General Internal Medicine 08/09/20 03/20/23 Markie Dey MD [address] [facility] [address] [place] [address] PCP - General Family Medicine 03/21/23 Edvin Zamorano MD #2 [facility] [address] [place] [address] Consulting Physician Urology 06/24/24 documented as of this encounter
--- OUTSIDE RECORDS SUMMARY | 2025-01-12 08:18 | XMS_ITS | Encounter Summary ---
Author Organization [facility] Address [address] [place] [address] Phone Care Team Providers Care Conventions Reservationist Name Role Phone Alvaro Dinh MD Primary Care Provider [phone] Markie Dey MD Primary Care Provider [phone] Edvin Zamorano MD Unavailable Encounter Details Date Type Department Care Team (Late Contact Info) Description 11/22/[facility]21 [facility] 1 [place] [address] Markie Dey MD [address] [place] [address] [address] [place] [address] Encounter for screening for COVID-19 Social History [...] 03/12/2025 10:00 AM CDT Office Visit [facility] #2 [place] [address] Yelena Moe MD #2 [facility] [address] [place] [address] documented as of this encounter Procedures Procedure Name Priority Date/Time Associated Diagnosis Comments SARS-COV-2 BY MOLECULAR Routine 11/22/2021 7:55 AM TIRE AND LUBE TECHNICIAN Encounter for screening for COVID-19 documented in this encounter Results * SARS-COV-2 BY MOLECULAR (11/22/2021 7:55 AM TIRE AND LUBE TECHNICIAN) SARSCOV2 NOT DETECTED (Referen ce Range for this test is Not Detected ) [facility] THERMOFISHER FAST DX 11/24/2021 9:45 AM TIRE AND LUBE TECHNICIAN [facility] Comment:This test was perfor med by a RT-PCR method. Other Non-Phlebotomy Collection / Unknown 11/22/2021 7:55 AM TIRE AND LUBE TECHNICIAN 11/22/2021 12:30 PM TIRE AND LUBE TECHNICIAN Narrative [facility] - 11/24/2021 9:45 AM TIRE AND LUBE TECHNICIAN Authorized Fact Sheets about this test for providers and patients are available at: https://www.fda.gov/medical-devices/bvxzigroz-zkkovlfgaq-yoesuui-devices/emergen -us e-authorizations us Markie Dey MD MICROBIOLOGY - GENERAL ORDERAB LES Final Result [facility] [address] [place] [address], documented in this encounter Visit Diagnoses Diagnosis Encounter for screening for COVID-19 documented in this encounter Additional Health Concerns Infection Onset Date Last Indicated Resolved Time COVID - 19 07/26/2021 05/30/2022 05/31/2022 12:2 3 AM CDT COVID - 19 Confirmed 05/30/2022 05/30/202206/19/2 022 12:16 AM CDT COVID - 19 08/08/2022 09/12/2022 09/22/2022 12:1 6 AM TIRE AND LUBE TECHNICIAN COVID - 19 10/31/2022 01/16/2023 01/26/2023 12:1 6 AM CDT COVID - 19 09/25/2024 09/25/2024 09/25/2024 10:4 0 AM TIRE AND LUBE TECHNICIAN documented as of this encounter Care Teams Conventions Reservationist Relationship Specialty Start Date End Date Alvaro Dinh MD [address] [facility] [address] [place] [address] PCP - General Internal Medicine 08/09/20 03/20/23 Markie Dey MD 4 [facility] [address] [place] [address] PCP - General Family Medicine 03/21/23 Edvin Zamorano MD #2 [facility] [address] [place] [address] Consulting Physician Urology 06/24/24 documented as of this encounter
--- OUTSIDE RECORDS SUMMARY | 2025-01-12 08:18 | XMS_ITS | Encounter Summary ---
Author Organization [facility] Address [address] [place] [address] Phone Care Team Providers Care Telecom Coordinator Name Role Phone Markie Dey MD Primary Care Provider [phone] Edvin Zamorano MD Unavailable Encounter Details Date Type Department Care Team (Late st Contact Info) Description 10/21/2024 Lab Requisition [facility] Laboratory Services 1 [place] [address] Markie Dey MD [address] [place] [address] [facility] [address] [place] [address] Personal history of urinary (tract) infections Social History Tobacco Use Types Packs/Day Years Used Date Smoking Tobacco: Never Smokeless Tobacco: Never Alcohol Use Standard Drinks/Week Comments Never 0 (1 standard drink = 0.6 oz pur e alcohol) [facility] Utilities Answer Date Recorded In the past 12 months has Placed, gas, oil, or water company threatened to [...] declined 09/25/2024 How often do you attend sikhism or adventism serv ices? Patient declined 09/25/2024 Do you belong to any clubs o r organizations such as sikhism groups, unions, fraternal or athletic groups, or [...] medical care, and heating? Patient declined 09/25/2024 [facility] of Occupat ional Health - Occupational Stress [...] were you homeless or living in a jail (including now)? Patient unable to answer 09/25/2024 [...] [facility] #[address] [place] [address] Yelena Moe MD #[address], [address] [address] documented as of this encounter Procedures Procedure Name Priority Date/Time Associated Diagnosis Comments URINALYSIS REFLEX IF INDICATED BY ABNORMAL RESULTS Routine 10/20/2024 12:43 PM RELATIONSHIP MANAGER Personal history of urinary (tract) infections CULTURE, URINE Routine 10/20/2024 12:43 PM RELATIONSHIP MANAGER Personal history of urinary (tract) infections documented in this encounter Results * CULTURE, URINE (10/20/2024 12:43 PM RELATIONSHIP MANAGER) CULTURE RESULTS PSEUDOMONAS AERUGINOSA 10/23/2024 8:47 AM RELATIONSHIP MANAGER [facility] Urine URINE SPECIMEN / Unknown Non-Phlebotomy Collection / Unknown 10/20/2024 12:43 PM RELATIONSHIP MANAGER 10/21/2024 8:34 AM RELATIONSHIP MANAGER Narrative Organism Antibiotic Method Susceptibility Pseudomonas aeruginosa Cefepime [facility] VITEK IIB <=1 mcg/ml: Susceptible Pseudomonas aeruginosa Gentamicin [facility] V[facility] IIB Resistant Pseudomonas aeruginosa Levofloxacin [facility] IIB 0.5 mcg/ml: Susceptible Pseudomonas aeruginosa Meropenem [facility] V[facility] IIB <=0.25 mcg/ml: Susceptible Pseudomonas aeruginosa Piperacillin/Tazobactam [facility] KELLEE IIB 8 mcg/ml: Susceptible Pseudomonas aeruginosa Tobramycin [facility] VITEK IIB <=1 mcg/ml: Susceptible us Markie Dey MD MICROBIOLOGY - GENERAL ORDERAB LES Final Result [facility] [address] [place] [address], [place] * (ABNORMAL) URINALYSIS REFLEX IF INDICATED BY ABNORMAL RESULTS (10/20/2024 12:43 PM RELATIONSHIP MANAGER) SPECIFIC GRAVITY 1.005 1.003 - 1.030 10/21/2024 9:30 AM RELATIONSHIP MANAGER [facility] URINE PH 6.5 5.0 - 9.0 10/21/2024 9:30 AM RELATIONSHIP MANAGER [facility] WBC ESTERASE 500 /uL(A) Negative 10/21/2024 9:30 AM RELATIONSHIP MANAGER [facility] NITRITE Positive(A) Negative 10/21/2024 9:30 AM RELATIONSHIP MANAGER [facility] PROTEIN, RANDOM URINE 100 mg/dL(A) Negative 10/21/2024 9:30 AM RELATIONSHIP MANAGER [facility] URINE GLUCOSE, QUAL 1000 mg/dL(A) Negative 10/21/2024 9:30 AM RELATIONSHIP MANAGER [facility] URINE KETONES Negative Negative 10/21/2024 9:30 AM RELATIONSHIP MANAGER [facility] UROBILINOGEN Normal Normal mg/dL 10/21/2024 9:30 AM RELATIONSHIP MANAGER [facility] URINE BLOOD 50 /uL(A) Negative marisel/ul 10/21/2024 9:30 AM RELATIONSHIP MANAGER [facility] URINALYSIS COLOR Yellow 10/21/20 9:30 AM RELATIONSHIP MANAGER [facility] URINALYSIS CLARITY Clear 10/21/2024 9:30 AM RELATIONSHIP MANAGER [facility] WBC (Urine) Packed(A) Negative, 0-5 /hpf 10/21/2024 9:30 AM RELATIONSHIP MANAGER [facility] URINE RBC'S 3-5(A) Negative, 0-2 /hpf 10/21/2024 9:30 AM RELATIONSHIP MANAGER [facility] EPITHELIAL CELLS Small amount /lpf 2023 9:30 AM RELATIONSHIP MANAGER [facility] BACTERIA, URINE Few(A) Negative /hpf 10/21/2024 9:30 AM RELATIONSHIP MANAGER [facility] Urine URINE SPECIMEN / Unknown Non-Phlebotomy Collection / Unknown 10/20/2024 12:43 PM RELATIONSHIP MANAGER 10/21/2024 8:34 AM RELATIONSHIP MANAGER us Markie Dey MD URINE ORDERABLES Final Result [facility] [place] [address] documented in this encounter Visit Diagnoses Diagnosis Personal history of urinary (tract) infections documented in this encounter Care Teams Telecom Coordinator Relationship Specialty Start Date End Date Markie Dey MD [address] [facility] [address] [place] [address] PCP - General Family Medicine 03/21/23 Edvin Zamorano MD #2 [facility] [address] [place] [id number] Consulting Physician Urology 06/24/24 documented as of this encounter
--- OUTSIDE RECORDS SUMMARY | 2025-01-12 08:18 | XMS_ITS | Encounter Summary ---
Author Organization [facility] Address [address] [place] [address] Phone Care Team Providers Care Proj Engineer Name Role Phone Alvaro Dinh MD Primary Care Provider [phone] Markie Dey MD Primary Care Provider [phone] Edvin Zamorano MD Unavailable Encounter Details Date Type Department Care Team (Late Contact Info) Description 12/13/2021 [facility] 1 [place] [address] Markie Dey MD [address] [place] [address] [address] [place] [address] Encounter for screening for COVID-19 Social History [...] Description 03/12/2025 10:00 AM CDT Office Visit [facility] #2 [place] [address] Yelena Moe MD #2 [facility] [address] [place] [address] documented as of this encounter Procedures Procedure Name Priority Date/Time Associated Diagnosis Comments SARS-COV-2 BY MOLECULAR Routine 12/13/2021 7:02 AM DEEP SUBMERGENCE VEHICLE OPERATOR Encounter for screening for COVID-19 documented in this encounter Results * SARS-COV-2 BY MOLECULAR (12/13/2021 7:02 AM DEEP SUBMERGENCE VEHICLE OPERATOR) SARSCOV2 NOT DETECTED (Referen ce Range for this test is Not Detected ) [facility] THERMOFISHER FAST DX 12/13/2021 11:49 PM DEEP SUBMERGENCE VEHICLE OPERATOR [facility] Comment:This test was perfor med by a RT-PCR method. Other Non-Phlebotomy Collection / Unknown 12/13/2021 7:02 AM DEEP SUBMERGENCE VEHICLE OPERATOR 12/13/2021 12:46 PM DEEP SUBMERGENCE VEHICLE OPERATOR Narrative [facility] - 12/13/2021 11:49 PM DEEP SUBMERGENCE VEHICLE OPERATOR Authorized Fact Sheets about this test for providers and patients are available at: https://www.fda.gov/medical-devices/ozsojfsxk-ccdtoovkfm-yjjgvto-devices/emergen -us e-authorizations us Markie Dey MD MICROBIOLOGY - GENERAL ORDERAB LES Final Result [facility] [address] [place] [address], documented in this encounter Visit Diagnoses Diagnosis Encounter for screening for COVID-19 documented in this encounter Additional Health Concerns Infection Onset Date Last Indicated Resolved Time COVID - 19 07/26/2021 05/30/2022 05/31/2022 12:2 3 AM CDT COVID - 19 Confirmed 05/30/2022 05/30/2022 08/2 022 12:16 AM CDT COVID - 19 08/08/2022 09/12/2022 09/22/2022 12:1 6 AM DEEP SUBMERGENCE VEHICLE OPERATOR COVID - 19 10/31/2022 01/16/2023 01/26/2023 12:1 6 AM CDT COVID - 19 09/25/2024 09/25/2024 09/25/2024 10:4 0 AM DEEP SUBMERGENCE VEHICLE OPERATOR documented as of this encounter Care Teams Proj Engineer Relationship Specialty Start Date End Date Alvaro Dinh MD [address] [facility] [address] [place] [address] PCP - General Internal Medicine 08/09/20 03/20/23 Markie Dey MD 4 [facility] [address] [place] [address] PCP - General Family Medicine 03/21/23 Edvin Zamorano MD #2 [facility] [address] [place] [address] Consulting Physician Urology 06/24/24 documented as of this encounter
--- OUTSIDE RECORDS SUMMARY | 2025-01-12 08:18 | XMS_ITS | Encounter Summary ---
Author Organization [facility] Address [address] [place] [address] Phone Care Team Providers Care Shotgun Shell Reprinting Unit Operator Name Role Phone Alvaro Dinh MD Primary Care Provider [phone] Markie Dey MD Primary Care Provider [phone] Edvin Zamorano MD Unavailable Encounter Details Date Type Department Care Team (Late Contact Info) Description 08/02/2021 [facility] 1 [place] [address] Markie Dey MD [address] [place] [address] [address] [place] [address] Encounter for screening for COVID-19 Social History [...] Description 03/12/2025 10:00 AM CDT Office Visit [facility] #2 [place] [address] Yelena Moe MD #2 [facility] [address] [place] [address] documented as of this encounter Procedures Procedure Name Priority Date/Time Associated Diagnosis Comments SARS-COV-2 BY MOLECULAR Routine 08/02/2021 8:08 AM CDT Encounter for screening for COVID-19 documented in this encounter Results * SARS-COV-2 BY MOLECULAR (08/02/2021 8:08 AM CDT) SARSCOV2 NOT DETECTED (Referen ce Range for this test is Not Detected ) [facility] THERMOFISHER FAST DX 08/03/2021 10:34 AM CDT [facility] Comment:This test was perfor med by a RT-PCR method. Other Non-Phlebotomy Collection / Unknown 08/02/2021 8:08 AM CDT 08/02/2021 11:04 AM CDT Narrative [facility] - 08/03/2021 10:34 AM CDT Authorized Fact Sheets about this test for providers and patients are available at: https://www.fda.gov/medical-devices/wrxznzqvt-fsdnujtsip-hhzynnd-devices/emergen cy-us e-authorizations us Markie Dey MD MICROBIOLOGY - GENERAL ORDERAB LES Final Result [facility] [address] [place] [address], documented in this encounter Visit Diagnoses Diagnosis Encounter for screening for COVID-19 documented in this encounter Additional Health Concerns Infection Onset Date Last Indicated Resolved Time COVID - 19 07/26/2021 05/30/2022 05/31/2022 12:2 3 AM CDT COVID - 19 Confirmed 05/30/2022 05/30/2022 08/2 022 12:16 AM CDT COVID - 19 08/08/2022 09/12/2022 09/22/2022 12:1 6 AM GRADE TEACHER COVID - 19 10/31/2022 01/16/2023 01/26/2023 12:1 6 AM CDT COVID - 19 09/25/2024 09/25/2024 09/25/2024 10:4 0 AM GRADE TEACHER documented as of this encounter Care Teams Shotgun Shell Reprinting Unit Operator Relationship Specialty Start Date End Date Alvaro Dinh MD [address] [facility] [address] [place] [address] PCP - General Internal Medicine 08/09/20 03/20/23 Markie Dey MD [address] [facility] [address] [place] [address] PCP - General Family Medicine 03/21/23 Edvin Zamorano MD #2 [address] [facility] [address] [place] [address] Consulting Physician Urology 06/24/24 documented as of this encounter
--- OUTSIDE RECORDS SUMMARY | 2025-01-12 08:18 | XMS_ITS | Encounter Summary ---
Author Organization [facility] Address [address] [place] [address] Phone Care Team Providers Care Weather Strip Installer Name Role Phone Alvaro Dinh MD Primary Care Provider [phone] Markie Dey MD Primary Care Provider [phone] Edvin Zamorano MD Unavailable Encounter Details Date Type Department Care Team (Late Contact Info) Description 10/25/2021 [facility] 1 [place] [address] Markie Dey MD [address] [place] [address] [address] [place] [address] Encounter for screening for COVID-19 Social History [...] Description 03/12/2025 10:00 AM CDT Office Visit [facility] UR[facility] #2 [place] [address] Yelena Moe MD #2 [facility] [address] [place] [address] documented as of this encounter Procedures Procedure Name Priority Date/Time Associated Diagnosis Comments SARS-COV-2 BY MOLECULAR Routine 10/25/2021 7:45 AM COLLECTION SUPERVISOR Encounter for screening for COVID-19 documented in this encounter Results * SARS-COV-2 BY MOLECULAR (10/25/2021 7:45 AM COLLECTION SUPERVISOR) SARSCOV2 NOT DETECTED (Referen ce Range for this test is Not Detected ) [facility] THERMOFISHER FAST DX 10/28/2021 8:57 AM COLLECTION SUPERVISOR [facility] Comment:This test was perfor med by a RT-PCR method. Other No Phlebotomy Charged / Unknown 10/25/2021 7:45 AM COLLECTION SUPERVISOR 10/25/2021 11:01 AM COLLECTION SUPERVISOR Narrative [facility] - 10/28/2021 8:57 AM COLLECTION SUPERVISOR Authorized Fact Sheets about this test for providers and patients are available at: https://www.fda.gov/medical-devices/geyeykbkw-lyxyaivzzf-vhavxbl-devices/emergen -us e-authorizations us Markie Dey MD MICROBIOLOGY - GENERAL ORDERAB LES Final Result [facility] [address] [place] [address], documented in this encounter Visit Diagnoses Diagnosis Encounter for screening for COVID-19 documented in this encounter Additional Health Concerns Infection Onset Date Last Indicated Resolved Time COVID - 19 07/26/2021 05/30/2022 05/31/2022 12:2 3 AM CDT COVID - 19 Confirmed 05/30/2022 05/30/2022 08/2 022 12:16 AM CDT COVID - 19 08/08/2022 09/12/2022 09/22/2022 12:1 6 AM COLLECTION SUPERVISOR COVID - 19 10/31/2022 01/16/2023 01/26/2023 12:1 6 AM CDT COVID - 19 09/25/2024 09/25/2024 09/25/2024 10:4 0 AM COLLECTION SUPERVISOR documented as of this encounter Care Teams Weather Strip Installer Relationship Specialty Start Date End Date Alvaro Dinh MD [address] [facility] [address] [place] [address] PCP - General Internal Medicine 08/09/20 03/20/23 Markie Dey MD 4 [facility] [address] [place] [address] PCP - General Family Medicine 03/21/23 Edvin Zamorano MD #2 [address] [facility] [address] [place] [address] Consulting Physician Urology 06/24/24 documented as of this encounter
--- OUTSIDE RECORDS SUMMARY | 2025-01-12 08:18 | XMS_ITS | Encounter Summary ---
Author Organization [facility] Address [address] [place] [address] Phone Care Team Providers Care Die Trimmer Name Role Phone Alvaro Dinh MD Primary Care Provider [phone] Markie Dey MD Primary Care Provider [phone] Edvin Zamorano MD Unavailable Encounter Details Date Type Department Care Team (Late Contact Info) Description 01/17/2022 [facility] 1 [place] [address] Markie Dey MD [address] [place] [address] [address] [place] [address] Encounter for screening for COVID-19 Social History [...] Description 03/12/2025 10:00 AM CDT Office Visit [facility] UR[facility] #2 [place] [address] Yelena Moe MD #2 [facility] [address] [place] [address] documented as of this encounter Procedures Procedure Name Priority Date/Time Associated Diagnosis Comments SARS-COV-2 BY MOLECULAR Routine 01/17/2022 7:12 AM CDT Encounter for screening for COVID-19 documented in this encounter Results * SARS-COV-2 BY MOLECULAR (01/17/2022 7:12 AM CDT) SARSCOV2 NOT DETECTED (Referen ce Range for this test is Not Detected ) [facility] THERMOFISHER FAST DX 01/17/2022 11:53 PM CDT [facility] Comment:This test was perfor med by a RT-PCR method. Other Non-Phlebotomy Collection / Unknown 01/17/2022 7:12 AM CDT 01/17/2022 12:22 PM CDT Narrative [facility] - 01/17/2022 11:53 PM CDT Authorized Fact Sheets about this test for providers and patients are available at: https://www.fda.gov/medical-devices/uvdwpfzym-vmxcfbmuwm-lqbvzza-devices/emergen cy-us e-authorizations us Markie Dey MD MICROBIOLOGY - GENERAL ORDERAB LES Final Result [facility] [address] [place] [address], documented in this encounter Visit Diagnoses Diagnosis Encounter for screening for COVID-19 documented in this encounter Additional Health Concerns Infection Onset Date Last Indicated Resolved Time COVID - 19 07/26/2021 05/30/2022 05/31/2022 12:2 3 AM CDT COVID - 19 Confirmed 05/30/2022 05/30/2022 022 12:16 AM CDT COVID - 19 08/08/2022 09/12/2022 09/22/2022 12:1 6 AM FLAT CUTTER COVID - 19 10/31/2022 01/16/2023 01/26/2023 12:1 6 AM CDT COVID - 19 09/25/2024 09/25/2024 09/25/2024 10:4 0 AM FLAT CUTTER documented as of this encounter Care Teams Die Trimmer Relationship Specialty Start Date End Date Alvaro Dinh MD [address] [facility] [address] [place] [address] PCP - General Internal Medicine 08/09/20 03/20/23 Markie Dey MD 4 [facility] [address] [place] [address] PCP - General Family Medicine 03/21/23 Edvin Zamorano MD #2 [address] [address] [place] [address] Consulting Physician Urology 06/24/24 documented as of this encounter
--- OUTSIDE RECORDS SUMMARY | 2025-01-12 08:18 | XMS_ITS | Encounter Summary ---
Author Organization [facility] Address [address] [place] [address] Phone Care Team Providers Care Poultry Process Worker Name Role Phone Alvaro Dinh MD Primary Care Provider [phone] Markie Dey MD Primary Care Provider [phone] Edvin Zamorano MD Unavailable Encounter Details Date Type Department Care Team (Late Contact Info) Description 01/24/2022 [facility] 1 [place] [address] Markie Dey MD [address] [place] [address] [address] [place] [address] Encounter for screening for COVID-19 Social History [...] 03/12/2025 10:00 AM CDT Office Visit [facility] UROLOGY #2 [place] [address] Yelena Moe MD #2 [facility] [address] [place] [address] documented as of this encounter Procedures Procedure Name Priority Date/Time Associated Diagnosis Comments SARS-COV-2 BY MOLECULAR Routine 01/24/2022 7:02 AM CDT Encounter for screening for COVID-19 documented in this encounter Results * SARS-COV-2 BY MOLECULAR (01/24/2022 7:02 AM CDT) SARSCOV2 NOT DETECTED (Referen ce Range for this test is Not Detected ) [facility] THERMOFISHER FAST DX 01/25/2022 12:07 AM CDT [facility] Comment:This test was perfor med by a RT-PCR method. Other No Phlebotomy Charged / Unknown 01/24/2022 7:02 AM CDT 01/24/2022 12:56 PM CDT Narrative [facility] - 01/25/2022 12:07 AM CDT Authorized Fact Sheets about this test for providers and patients are available at: https://www.fda.gov/medical-devices/biegumowf-zevyyikbsb-lcpqgrx-devices/emergen cy-us e-authorizations us Markie Dey MD MICROBIOLOGY - GENERAL ORDERAB LES Final Result [facility] [address] [place] [address], documented in this encounter Visit Diagnoses Diagnosis Encounter for screening for COVID-19 documented in this encounter Additional Health Concerns Infection Onset Date Last Indicated Resolved Time COVID - 19 07/26/2021 05/30/2022 05/31/2022 12:2 3 AM CDT COVID - 19 Confirmed 05/30/2022 05/30/2022 0816/2 022 12:16 AM CDT COVID - 19 08/08/2022 09/12/2022 09/22/2022 12:1 6 AM SPACE OPERATIONS COVID - 19 10/31/2022 01/16/2023 01/26/2023 12:1 6 AM CDT COVID - 19 09/25/2024 09/25/2024 09/25/2024 10:4 0 AM SPACE OPERATIONS documented as of this encounter Care Teams Poultry Process Worker Relationship Specialty Start Date End Date Alvaro Dinh MD [address] [facility] [address] [place] [address] PCP - General Internal Medicine 08/09/20 03/20/23 Markie Dey MD [address] [facility] [address] [place] [address] PCP - General Family Medicine 03/21/23 Edvin Zamorano MD #2 [address] [facility] [address] [place] [address] Consulting Physician Urology 06/24/24 documented as of this encounter
--- OUTSIDE RECORDS SUMMARY | 2025-01-12 08:18 | XMS_ITS | Encounter Summary ---
Author Organization [facility] Address [address] [place] [address] Phone Care Team Providers Care Disability Program Navigator Name Role Phone Markie Dey MD Primary Care Provider Edvin Zamorano MD Unavailable Encounter Details Date Type Department Care Team (Late st Contact Info) Description 12/09/2024 Lab Requisition [facility] Laboratory Services 1 [place] [address] Markie Dey MD [address] [place] [address] [facility] [address] [place] [address] Type 1 diabetes mellitus without complications (HCC) Social History Tobacco Use Types Packs/Day Years Used Date Smoking Tobacco: Never Smokeless Tobacco: Never Alcohol Use Standard Drinks/Week Comments Never 0 (1 standard drink = 0.6 oz pur e alcohol) [facility] Utilities Answer Date Recorded In the past 12 months has e [employer], gas, oil, or water company threatened to [...] declined 09/25/2024 How often do you attend uatsdin or jewish serv ices? Patient declined 09/25/2024 Do you belong to any clubs o r organizations such as uatsdin groups, unions, fraternal or athletic groups, or [...] medical care, and heating? Patient declined 09/25/2024 [facility] Occupat ional Health - Occupational Stress [...] AM CDT Office Visit [facility]Y #[address] [place] [address] Yelena Moe MD #2 [facility], [address] [address] documented as of this encounter Procedures Procedure Name Priority Date/Time Associated Diagnosis Comments HEMOGLOBIN A1C W/ ESTIMATED GLUCOSE Routine 12/09/2024 7:05 AM THEATRICAL PERFORMER Type 1 diabetes mellitus without complications (HCC) documented in this encounter Results * (ABNORMAL) HEMOGLOBIN A1C W/ ESTIMATED GLUCOSE (12/09/2024 7:05 AM THEATRICAL PERFORMER) HGB-A1C 7.8(H) 4.0 - 6.0 % 12/09/2024 9:10 AM THEATRICAL PERFORMER [facility] Est Average Glucose 177.2 mg/dL 12/09/2024 9:10 AM THEATRICAL PERFORMER [facility] Blood Venipuncture / Unknown 12/09/2024 7:05 AM THEATRICAL PERFORMER 12/09/2024 7:49 AM THEATRICAL PERFORMER Narrative [facility] - 12/09/2024 9:10 AM THEATRICAL PERFORMER HEMOGLOBIN A1C: DIABETIC PATIENTS: WELL-CONTROLLED: 6.2 - 7.0 INTERMEDIATE WELL-CONTROLLED: 7.0 - 9.0 POORLY-CONTROLLED: >9.0 Specimens containing greater than 5% of Hemoglobin F may result in lower than expected % HbA1C results. us Markie Dey MD CHEMISTRY ORDERABLES Final Res ult [facility] #[address] [place] [address] documented in this encounter Visit Diagnoses Diagnosis Type 1 diabetes mellitus without complications (HCC) Type I (juvenile type) diabetes mellitus without mention of complication, not stated as uncontrolled documented in this encounter Care Teams Disability Program Navigator Relationship Specialty Start Date End Date Markie Dey MD [address] [facility] [facility] [address] [place] [address] PCP - General Family Medicine 03/21/23 Edvin Zamorano MD #[address] [facility] 300 [place] [address] Consulting Physician Urology 06/24/24 documented as of this encounter
--- OUTSIDE RECORDS SUMMARY | 2025-01-12 08:18 | XMS_ITS | Encounter Summary ---
Author Organization [facility] Address [address] [place] [address] Phone Care Team Providers Care Photoengraver Apprentice Name Role Phone Alvaro Dinh MD Primary Care Provider [phone] Markie Dey MD Primary Care Provider [phone] Edvin Zamorano MD Unavailable Encounter Details Date Type Department Care Team (Late Contact Info) Description 03/07/2022 [facility] 1 [place] [address] Markie Dey MD [address] [place] [address] [address] [place] [address] Encounter for screening for COVID-19 Social History [...] Description 03/12/2025 10:00 AM CDT Office Visit [facility] UROLOGY #2 [place] [address] Yelena Moe MD #2 [facility] [address] [place] [address] documented as of this encounter Procedures Procedure Name Priority Date/Time Associated Diagnosis Comments SARS-COV-2 BY MOLECULAR Routine 03/07/2022 7:35 AM CDT Encounter for screening for COVID-19 documented in this encounter Results * SARS-COV-2 BY MOLECULAR (03/07/2022 7:35 AM CDT) SARSCOV2 NOT DETECTED (Referen ce Range for this test is Not Detected ) [facility] THERMOFISHER FAST DX 03/07/2022 11:40 PM CDT [facility] Comment:This test was perfor med by a RT-PCR method. Other Non-Phlebotomy Collection / Unknown 03/07/2022 7:35 AM CDT 03/07/2022 12:34 PM CDT Narrative [facility] - 03/07/2022 11:40 PM CDT Authorized Fact Sheets about this test for providers and patients are available at: https://www.fda.gov/medical-devices/kikzdpjbk-bfwohxdasf-obotkut-devices/emergen cy-us e-authorizations us Markie Dey MD MICROBIOLOGY - GENERAL ORDERAB LES Final Result [facility] [address] [place] [address], documented in this encounter Visit Diagnoses Diagnosis Encounter for screening for COVID-19 documented in this encounter Additional Health Concerns Infection Onset Date Last Indicated Resolved Time COVID - 19 07/26/2021 05/30/2022 05/31/2022 12:2 3 AM CDT COVID - 19 Confirmed 05/30/2022 05/30/2022 0816/2 022 12:16 AM CDT COVID - 19 08/08/2022 09/12/2022 09/22/2022 12:1 6 AM NOZZLE AND SLEEVE WORKER COVID - 19 10/31/2022 01/16/2023 01/26/2023 12:1 6 AM CDT COVID - 19 09/25/2024 09/25/2024 09/25/2024 10:4 0 AM NOZZLE AND SLEEVE WORKER documented as of this encounter Care Teams Photoengraver Apprentice Relationship Specialty Start Date End Date Alvaro Dinh MD [address] [facility] [address] [place] [address] PCP - General Internal Medicine 08/09/20 03/20/23 Markie eDy MD [address] [facility] [address] [place] [address] PCP - General Family Medicine 03/21/23 Edvin Zamorano MD #2 [facility] [facility] [address] [place] [id number] Consulting Physician Urology 06/24/24 documented as of this encounter
--- OUTSIDE RECORDS SUMMARY | 2025-01-12 08:18 | XMS_ITS | Encounter Summary ---
Author Organization [facility] Address [address] [place] [address] Phone Care Team Providers Care Coremaker Name Role Phone Alvaro Dinh MD Primary Care Provider [phone] Markie Dey MD Primary Care Provider [phone] Edvin Zamorano MD Unavailable Encounter Details Date Type Department Care Team (Late Contact Info) Description 11/08/2021 [facility] 1 [place] [address] Markie Dey MD [address] [place] [address] [address] [place] [address] Social History Tobacco Use Types Packs/Day Years [...] Description 03/12/2025 10:00 AM CDT Office Visit [facility] UR[facility]Y #2 [place] [address] Yelena Moe MD #2 [facility] [address] [place] [address] documented as of this encounter Procedures Procedure Name Priority Date/Time Associated Diagnosis Comments SARS-COV-2 BY MOLECULAR Routine 11/08/2021 7:59 AM PROJECT MANAGEMENT DIRECTOR documented in this encounter Results * SARS-COV-2 BY MOLECULAR (11/08/2021 7:59 AM PROJECT MANAGEMENT DIRECTOR) SARSCOV2 NOT DETECTED (Referen ce Range for this test is Not Detected ) [facility] THERMOFISHER FAST DX 11/10/2021 7:20 PM PROJECT MANAGEMENT DIRECTOR [facility] Comment:This test was perfor med by a RT-PCR method. Other Non-Phlebotomy Collection / Unknown 11/08/2021 7:59 AM PROJECT MANAGEMENT DIRECTOR 11/08/2021 1:05 PM PROJECT MANAGEMENT DIRECTOR Narrative [facility] - 11/10/2021 7:20 PM PROJECT MANAGEMENT DIRECTOR Authorized Fact Sheets about this test for providers and patients are available at: https://www.fda.gov/medical-devices/cediafouw-knfrjbarps-tmxgmvt-devices/emergen cy-us e-authorizations us Markie Dey MD MICROBIOLOGY - GENERAL ORDERAB LES Final Result [facility] [address] [place] [address], documented in this encounter Visit Diagnoses Not on filedocumented in this encounter Additional Health Concerns Infection Onset Date Last Indicated Resolved Time COVID - 19 07/26/2021 05/30/2022 05/31/2022 12:2 3 AM CDT COVID - 19 Confirmed 05/30/2022 05/30/2022 0816/2 022 12:16 AM CDT COVID - 19 08/08/2022 09/12/2022 09/22/2022 12:1 6 AM PROJECT MANAGEMENT DIRECTOR COVID - 19 10/31/2022 01/16/2023 01/26/2023 12:1 6 AM CDT COVID - 19 09/25/2024 09/25/2024 09/25/2024 10:4 0 AM PROJECT MANAGEMENT DIRECTOR documented as of this encounter Care Teams Coremaker Relationship Specialty Start Date End Date Alvaro Dinh MD [address] [place] [address] [place] [address] PCP - General Internal Medicine 08/09/20 03/20/23 Markie Dey MD 4 [facility] [address] [place] [address] PCP - General Family Medicine 03/21/23 Edvin Zamorano MD #2 [facility] [address] [place] [address] Consulting Physician Urology 06/24/24 documented as of this encounter
--- OUTSIDE RECORDS SUMMARY | 2025-01-12 08:18 | XMS_ITS | Encounter Summary ---
Author Organization [facility] Address [address] [place] [address] Phone Care Team Providers Care Life Science Teacher Name Role Phone Alvaro Dinh MD Primary Care Provider [phone] Markie Dey MD Primary Care Provider [phone] Edvin Zamorano MD Unavailable Encounter Details Date Type Department Care Team (Late Contact Info) Description 11/01/2021 [facility] 1 [place] [address] Markie Dey MD [address] [place] [address] [address] [place] [address] Encounter for screening for COVID-19 Social History [...] Description 03/12/2025 10:00 AM CDT Office Visit [facility] UR[facility]Y #2 [place] [address] Yelena Moe MD #2 [facility] [address] [place] [address] documented as of this encounter Procedures Procedure Name Priority Date/Time Associated Diagnosis Comments SARS-COV-2 BY MOLECULAR Routine 11/01/2021 7:51 AM PSYCHOLOGY INSTRUCTOR Encounter for screening for COVID-19 documented in this encounter Results * SARS-COV-2 BY MOLECULAR (11/01/2021 7:51 AM PSYCHOLOGY INSTRUCTOR) SARSCOV2 NOT DETECTED (Referen ce Range for this test is Not Detected ) [facility] THERMOFISHER FAST DX 11/04/2021 9:49 AM PSYCHOLOGY INSTRUCTOR [facility] Comment:This test was perfor med by a RT-PCR method. Other No Phlebotomy Charged / Unknown 11/01/2021 7:51 AM PSYCHOLOGY INSTRUCTOR 11/01/2021 11:09 AM PSYCHOLOGY INSTRUCTOR Narrative [facility] - 11/04/2021 9:49 AM PSYCHOLOGY INSTRUCTOR Authorized Fact Sheets about this test for providers and patients are available at: https://www.fda.gov/medical-devices/tubpityos-qlfcrqcdns-algrkjk-devices/emergen -us e-authorizations us Markie Dey MD MICROBIOLOGY - GENERAL ORDERAB LES Final Result [facility] [address] [place] [id number], documented in this encounter Visit Diagnoses Diagnosis Encounter for screening for COVID-19 documented in this encounter Additional Health Concerns Infection Onset Date Last Indicated Resolved Time COVID - 19 07/26/2021 05/30/2022 05/31/2022 12:2 3 AM CDT COVID - 19 Confirmed 05/30/2022 05/30/2022 08/2 022 12:16 AM CDT COVID - 19 08/08/2022 09/12/2022 09/22/2022 12:1 6 AM PSYCHOLOGY INSTRUCTOR COVID - 19 10/31/2022 01/16/2023 01/26/2023 12:1 6 AM CDT COVID - 19 09/25/2024 09/25/2024 09/25/2024 10:4 0 AM PSYCHOLOGY INSTRUCTOR documented as of this encounter Care Teams Life Science Teacher Relationship Specialty Start Date End Date Alvaro Dinh MD [address] [facility] [address] [place] [address] PCP - General Internal Medicine 08/09/20 03/20/23 Markie Dey MD 4 [facility] [address] [place] [address] PCP - General Family Medicine 03/21/23 Edvin Zamorano MD #2 [facility] [facility] [address] [place] [address] Consulting Physician Urology 06/24/24 documented as of this encounter
--- OUTSIDE RECORDS SUMMARY | 2025-01-12 08:18 | XMS_ITS | Encounter Summary ---
Author Organization [facility] Address [address] [place] [address] Phone Care Team Providers Care Information Systems Coordinator Name Role Phone Alvaro Dinh MD Primary Care Provider [phone] Markie Dey MD Primary Care Provider [phone] Edvin Zamorano MD Unavailable Encounter Details Date Type Department Care Team (Late Contact Info) Description 01/31/2022 [facility] 1 [place] [address] Markie Dey MD [address] [place] [address] [address] [place] [address] Encounter for screening for COVID-19 Social History [...] Description 03/12/2025 10:00 AM CDT Office Visit [facility] UROLOGY #2 [place] [address] Yelena Moe MD #2 [facility] [address] [place] [address] documented as of this encounter Procedures Procedure Name Priority Date/Time Associated Diagnosis Comments SARS-COV-2 BY MOLECULAR Routine 01/31/2022 7:28 AM CDT Encounter for screening for COVID-19 documented in this encounter Results * SARS-COV-2 BY MOLECULAR (01/31/2022 7:28 AM CDT) SARSCOV2 NOT DETECTED (Referen ce Range for this test is Not Detected ) [facility] THERMOFISHER FAST DX 02/01/2022 12:26 AM CDT [facility] Comment:This test was perfor med by a RT-PCR method. Other Non-Phlebotomy Collection / Unknown 01/31/2022 7:28 AM CDT 01/31/2022 12:45 PM CDT Narrative [facility] - 02/01/2022 12:26 AM CDT Authorized Fact Sheets about this test for providers and patients are available at: https://www.fda.gov/medical-devices/dlfwidkii-gurqxgcuzd-cuptqjl-devices/emergen cy-us e-authorizations us Markie Dey MD MICROBIOLOGY - GENERAL ORDERAB LES Final Result [facility] [address] [place] [address], documented in this encounter Visit Diagnoses Diagnosis Encounter for screening for COVID-19 documented in this encounter Additional Health Concerns Infection Onset Date Last Indicated Resolved Time COVID - 19 07/26/2021 05/30/2022 05/31/2022 12:2 3 AM CDT COVID - 19 Confirmed 05/30/2022 05/30/2022 08/2 022 12:16 AM CDT COVID - 19 08/08/2022 09/12/2022 09/22/2022 12:1 6 AM ASSEMBLER EQUIPMENT COVID - 19 10/31/2022 01/16/2023 01/26/2023 12:1 6 AM CDT COVID - 19 09/25/2024 09/25/2024 09/25/2024 10:4 0 AM ASSEMBLER EQUIPMENT documented as of this encounter Care Teams Information Systems Coordinator Relationship Specialty Start Date End Date Alvaro Dinh MD [address] [facility] [address] [place] [address] PCP - General Internal Medicine 08/09/20 03/20/23 Markie Dey MD [address] [facility] [address] [place] [address] PCP - General Family Medicine 03/21/23 Edvin Zamorano MD #2 [facility] [facility] [address] [place] [address] Consulting Physician Urology 06/24/24 documented as of this encounter
--- OUTSIDE RECORDS SUMMARY | 2025-01-12 08:18 | XMS_ITS | Encounter Summary ---
Author Organization [facility] Address [address] [place] [address] Phone Care Team Providers Care Poultry Buyer Name Role Phone Alvaro Dinh MD Primary Care Provider [phone] Markie Dey MD Primary Care Provider [phone] Edvin Zamorano MD Unavailable Encounter Details Date Type Department Care Team (Late Contact Info) Description 09/13/2021 [facility] 1 [place] [address] Markie Dey MD [address] [place] [address] [address] [place] [address] Encounter for screening for COVID-19 Social History [...] Description 03/12/2025 10:00 AM CDT Office Visit [facility] UR[facility]Y #2 [place] [address] Yelena Moe MD #2 [facility] [address] [place] [address] documented as of this encounter Procedures Procedure Name Priority Date/Time Associated Diagnosis Comments SARS-COV-2 BY MOLECULAR Routine 09/13/2021 7:44 AM EMERGENCY MEDICAL TECHNICIAN/DRIVER Encounter for screening for COVID-19 documented in this encounter Results * SARS-COV-2 BY MOLECULAR (09/13/2021 7:44 AM EMERGENCY MEDICAL TECHNICIAN/DRIVER) SARSCOV2 NOT DETECTED (Referen ce Range for this test is Not Detected ) [facility] THERMOFISHER FAST DX 09/14/2021 1:33 PM EMERGENCY MEDICAL TECHNICIAN/DRIVER [facility] Comment:This test was perfor med by a RT-PCR method. Other No Phlebotomy Charged / Unknown 09/13/2021 7:44 AM EMERGENCY MEDICAL TECHNICIAN/DRIVER 09/13/2021 10:24 AM EMERGENCY MEDICAL TECHNICIAN/DRIVER Narrative [facility] - 09/14/2021 1:33 PM EMERGENCY MEDICAL TECHNICIAN/DRIVER Authorized Fact Sheets about this test for providers and patients are available at: https://www.fda.gov/medical-devices/yqjhebhmt-dtnqichmmu-eyojwqp-devices/emergen -us e-authorizations us Markie Dey MD MICROBIOLOGY - GENERAL ORDERAB LES Final Result [facility] [address] [place] [address], documented in this encounter Visit Diagnoses Diagnosis Encounter for screening for COVID-19 documented in this encounter Additional Health Concerns Infection Onset Date Last Indicated Resolved Time COVID - 19 07/26/2021 05/30/2022 05/31/2022 12:2 3 AM CDT COVID - 19 Confirmed 05/30/2022 05/30/2022 08/2 022 12:16 AM CDT COVID - 19 08/08/2022 09/12/2022 09/22/2022 12:1 6 AM EMERGENCY MEDICAL TECHNICIAN/DRIVER COVID - 19 10/31/2022 01/16/2023 01/26/2023 12:1 6 AM CDT COVID - 19 09/25/2024 09/25/2024 09/25/2024 10:4 0 AM EMERGENCY MEDICAL TECHNICIAN/DRIVER documented as of this encounter Care Teams Poultry Buyer Relationship Specialty Start Date End Date Alvaro Dinh MD [address] [facility] [address] [place] [address] PCP - General Internal Medicine 08/09/20 03/20/23 Markie Dey MD 4 [facility] [address] [place] [address] PCP - General Family Medicine 03/21/23 Edvin Zamorano MD #2 JOVAN[address] [facility] [address] [place] [address] Consulting Physician Urology 06/24/24 documented as of this encounter
--- OUTSIDE RECORDS SUMMARY | 2025-01-12 08:18 | XMS_ITS | Encounter Summary ---
Author Organization [facility] Address [address] [place] [address] Phone Care Team Providers Care Chipper Feeder Name Role Phone Alvaro Dinh MD Primary Care Provider [phone] Markie Dey MD Primary Care Provider [phone] Edvin Zamorano MD Unavailable Encounter Details Date Type Department Care Team (Late Contact Info) Description 10/11/2021 [facility] 1 [place] [address] Markie Dey MD [address] [place] [address] [address] [place] [address] Encounter for screening for COVID-19 Social History [...] 10:00 AM CDT Office Visit [facility] UR[facility]Y #2 [place] [address] Yelena Moe MD #2 [facility] [address] [place] [address] documented as of this encounter Procedures Procedure Name Priority Date/Time Associated Diagnosis Comments SARS-COV-2 BY MOLECULAR Routine 10/11/2021 7:48 AM CHEF DE CUISINE Encounter for screening for COVID-19 documented in this encounter Results * SARS-COV-2 BY MOLECULAR (10/11/2021 7:48 AM CHEF DE CUISINE) SARSCOV2 NOT DETECTED (Referen ce Range for this test is Not Detected ) [facility] THERMOFISHER FAST DX 10/12/2021 5:59 PM CHEF DE CUISINE [facility] Comment:This test was perfor med by a RT-PCR method. Other No Phlebotomy Charged / Unknown 10/11/2021 7:48 AM CHEF DE CUISINE 10/11/2021 11:12 AM CHEF DE CUISINE Narrative [facility] - 10/12/2021 5:59 PM CHEF DE CUISINE Authorized Fact Sheets about this test for providers and patients are available at: https://www.fda.gov/medical-devices/saklebkjq-rttsowojiu-ewzvnok-devices/emergen -us e-authorizations us Markie Dey MD MICROBIOLOGY - GENERAL ORDERAB LES Final Result [facility] [address] [place] [address], documented in this encounter Visit Diagnoses Diagnosis Encounter for screening for COVID-19 documented in this encounter Additional Health Concerns Infection Onset Date Last Indicated Resolved Time COVID - 19 07/26/2021 05/30/2022 05/31/2022 12:2 3 AM CDT COVID - 19 Confirmed 05/30/2022 05/30/20222 022 12:16 AM CDT COVID - 19 08/08/2022 09/12/2022 09/22/2022 12:1 6 AM CHEF DE CUISINE COVID - 19 10/31/2022 01/16/2023 01/26/2023 12:1 6 AM CDT COVID - 19 09/25/2024 09/25/2024 09/25/2024 10:4 0 AM CHEF DE CUISINE documented as of this encounter Care Teams Chipper Feeder Relationship Specialty Start Date End Date Alvaro Dinh MD [address] [facility] [address] [place] [address] PCP - General Internal Medicine 08/09/20 03/20/23 Markie Dey MD 4 [facility] [address] [place] [address] PCP - General Family Medicine 03/21/23 Edvin Zamorano MD #2 [facility] [address] [place] [address] Consulting Physician Urology 06/24/24 documented as of this encounter
--- OUTSIDE RECORDS SUMMARY | 2025-01-12 08:18 | XMS_ITS | Encounter Summary ---
Author Organization [facility] Address [address] [place] [address] Phone Care Team Providers Care U.S. Representative Name Role Phone Alvaro Dinh MD Primary Care Provider [phone] Markie Dey MD Primary Care Provider [phone] Edvin Zamorano MD Unavailable Encounter Details Date Type Department Care Team (Late Contact Info) Description 12/20/[address] [facility] Laboratory Services 1 [place] [address] Markie Dey MD [address] [place] [address] [address] [place] [address] Encounter for screening for COVID-19 Social History [...] Description 03/12/2025 10:00 AM CDT Office Visit [facility] #2 [place] [address] Yelena Moe MD #2 [facility] [address] [place] [address] documented as of this encounter Procedures Procedure Name Priority Date/Time Associated Diagnosis Comments SARS-COV-2 BY MOLECULAR Routine 12/20/2021 7:02 AM PAYMASTER OF PURSES Encounter for screening for COVID-19 documented in this encounter Results * SARS-COV-2 BY MOLECULAR (12/20/2021 7:02 AM PAYMASTER OF PURSES) SARSCOV2 NOT DETECTED (Referen ce Range for this test is Not Detected ) [facility] THERMOFISHER FAST DX 12/21/2021 12:35 AM PAYMASTER OF PURSES [facility] Comment:This test was perfor med by a RT-PCR method. Other Non-Phlebotomy Collection / Unknown 12/20/2021 7:02 AM PAYMASTER OF PURSES 12/20/2021 10:59 AM PAYMASTER OF PURSES Narrative [facility] - 12/21/2021 12:35 AM PAYMASTER OF PURSES Authorized Fact Sheets about this test for providers and patients are available at: https://www.fda.gov/medical-devices/yfwceuxsh-trbmvtmdxu-iirvogz-devices/emergen -us e-authorizations us Markie Dey MD MICROBIOLOGY - GENERAL ORDERAB LES Final Result [facility] [address] [place] [address], documented in this encounter Visit Diagnoses Diagnosis Encounter for screening for COVID-19 documented in this encounter Additional Health Concerns Infection Onset Date Last Indicated Resolved Time COVID - 19 07/26/2021 05/30/2022 05/31/2022 12:2 3 AM CDT COVID - 19 Confirmed 05/30/2022 05/30/2022 022 12:16 AM CDT COVID - 19 08/08/2022 09/12/2022 09/22/2022 12:1 6 AM PAYMASTER OF PURSES COVID - 19 10/31/2022 01/16/2023 01/26/2023 12:1 6 AM CDT COVID - 19 09/25/2024 09/25/2024 09/25/2024 10:4 0 AM PAYMASTER OF PURSES documented as of this encounter Care Teams U.S. Representative Relationship Specialty Start Date End Date Alvaro Dinh MD [address] [email or web address] [address] [place] [address] PCP - General Internal Medicine 08/09/20 03/20/23 Markie Dey MD 4 [facility] [address] [place] [address] PCP - General Family Medicine 03/21/23 Edvin Zamorano MD #2 [facility] [address] [place] [address] Consulting Physician Urology 06/24/24 documented as of this encounter
--- OUTSIDE RECORDS SUMMARY | 2025-01-12 08:18 | XMS_ITS | Encounter Summary ---
Author Organization [facility] Address [address] [place] [address] Phone Care Team Providers Care Waste Collection Driver Name Role Phone Alvaro Dinh MD Primary Care Provider [phone] Markie Dey MD Primary Care Provider [phone] Edvin Zamorano MD Unavailable Encounter Details Date Type Department Care Team (Late Contact Info) Description 09/06/2021 Lab [facility] 1 [place] [address] Markie Dey MD [address] [place] [address] [address] [place] [address] Encounter for screening for COVID-19 Social History [...] Description 03/12/2025 10:00 AM CDT Office Visit [facility] #2 [place] [address] Yelena Moe MD #2 [facility] [address] [place] [address] documented as of this encounter Procedures Procedure Name Priority Date/Time Associated Diagnosis Comments SARS-COV-2 BY MOLECULAR Routine 09/06/2021 7:39 AM CDT Encounter for screening for COVID-19 documented in this encounter Results * SARS-COV-2 BY MOLECULAR (09/06/2021 7:39 AM CDT) SARSCOV2 NOT DETECTED (Referen ce Range for this test is Not Detected ) [facility] THERMOFISHER FAST DX 09/07/2021 12:01 AM CDT [facility] Comment:This test was perfor med by a RT-PCR method. Other No Phlebotomy Charged / Unknown 09/06/2021 7:39 AM CDT 09/06/2021 10:44 AM CDT Narrative [facility] - 09/07/2021 12:01 AM CDT Authorized Fact Sheets about this test for providers and patients are available at: https://www.fda.gov/medical-devices/mcjjynrvo-hlmrsfrgom-yllymuk-devices/emergen cy-us e-authorizations us Markie Dey MD MICROBIOLOGY - GENERAL ORDERAB LES Final Result [facility] [address] [place] [address], documented in this encounter Visit Diagnoses Diagnosis Encounter for screening for COVID-19 documented in this encounter Additional Health Concerns Infection Onset Date Last Indicated Resolved Time COVID - 19 07/26/2021 05/30/2022 05/31/2022 12:2 3 AM CDT COVID - 19 Confirmed 05/30/2022 05/30/2022 0816/2 022 12:16 AM CDT COVID - 19 08/08/2022 09/12/2022 09/22/2022 12:1 6 AM CITRUS FRUIT PACKER COVID - 19 10/31/2022 01/16/2023 01/26/2023 12:1 6 AM CDT COVID - 19 09/25/2024 09/25/2024 09/25/2024 10:4 0 AM CITRUS FRUIT PACKER documented as of this encounter Care Teams Waste Collection Driver Relationship Specialty Start Date End Date Alvaro Dinh MD [address] [facility] [address] [place] [address] PCP - General Internal Medicine 08/09/20 03/20/23 Markie Dey MD [address] [facility] [address] [place] [address] PCP - General Family Medicine 03/21/23 Edvin Zamorano MD #2 [address] [address] [place] [address] Consulting Physician Urology 06/24/24 documented as of this encounter
--- OUTSIDE RECORDS SUMMARY | 2025-01-12 08:18 | XMS_ITS | Encounter Summary ---
Author Organization [facility] Address [address] [place] [address] Phone Care Team Providers Care Outreach Representative Name Role Phone Alvaro Dinh MD Primary Care Provider [phone] Markie Dey MD Primary Care Provider [phone] Edvin Zamorano MD Unavailable Encounter Details Date Type Department Care Team (Late Contact Info) Description 02/28/2022 [facility] 1 [place] [address] Markie Dey MD [address] [place] [address] [address] [place] [address] Encounter for screening for COVID-19 Social History [...] Description 03/12/2025 10:00 AM CDT Office Visit [facility] #2 [place] [address] Yelena Moe MD #2 [facility] [address] [place] [address] documented as of this encounter Procedures Procedure Name Priority Date/Time Associated Diagnosis Comments SARS-COV-2 BY MOLECULAR Routine 02/28/2022 7:46 AM CDT Encounter for screening for COVID-19 documented in this encounter Results * SARS-COV-2 BY MOLECULAR (02/28/2022 7:46 AM CDT) SARSCOV2 NOT DETECTED (Referen ce Range for this test is Not Detected ) [facility] THERMOFISHER FAST DX 03/01/2022 11:37 AM CDT [facility] Comment:This test was perfor med by a RT-PCR method. Other No Phlebotomy Charged / Unknown 02/28/2022 7:46 AM CDT 02/28/2022 12:55 PM CDT Narrative [facility] - 03/01/2022 11:37 AM CDT Authorized Fact Sheets about this test for providers and patients are available at: https://www.fda.gov/medical-devices/imtpbfeeu-kftruhdmub-mddevwc-devices/emergen cy-us e-authorizations us Markie Dey MD MICROBIOLOGY - GENERAL ORDERAB LES Final Result [facility] [address] [place] [address], documented in this encounter Visit Diagnoses Diagnosis Encounter for screening for COVID-19 documented in this encounter Additional Health Concerns Infection Onset Date Last Indicated Resolved Time COVID - 19 07/26/2021 05/30/2022 05/31/2022 12:2 3 AM CDT COVID - 19 Confirmed 05/30/2022 05/30/2022 0816/2 022 12:16 AM CDT COVID - 19 08/08/2022 09/12/2022 09/22/2022 12:1 6 AM CORPORATE DEVELOPMENT OFFICER COVID - 19 10/31/2022 01/16/2023 01/26/2023 12:1 6 AM CDT COVID - 19 09/25/2024 09/25/2024 09/25/2024 10:4 0 AM CORPORATE DEVELOPMENT OFFICER documented as of this encounter Care Teams Outreach Representative Relationship Specialty Start Date End Date Alvaro Dinh MD [address] [facility] [address] [place] [address] PCP - General Internal Medicine 08/09/20 03/20/23 Markie Dey MD [address] [facility] [address] [place] [address] PCP - General Family Medicine 03/21/23 Edvin Zamorano MD #2 [address] [facility] [address] [place] [address] Consulting Physician Urology 06/24/24 documented as of this encounter
--- OUTSIDE RECORDS SUMMARY | 2025-01-12 08:18 | XMS_ITS | Encounter Summary ---
Author Organization [facility] Address [address] [place] [address] Phone Care Team Providers Care Calender Wind Up Helper Name Role Phone Alvaro Dinh MD Primary Care Provider [phone] Markie Dey MD Primary Care Provider [phone] Edvin Zamorano MD Unavailable Encounter Details Date Type Department Care Team (Late Contact Info) Description 04/11/2022 [facility] 1 [place] [address] Markie Dey MD [address] [place] [address] [address] [place] [address] Encounter for screening for COVID-19 Social History [...] Description 03/12/2025 10:00 AM CDT Office Visit [facility] #2 [place] [address] Yelena Moe MD #2 [facility] [address] [place] [address] documented as of this encounter Procedures Procedure Name Priority Date/Time Associated Diagnosis Comments SARS-COV-2 BY MOLECULAR Routine 04/11/2022 7:53 AM CDT Encounter for screening for COVID-19 documented in this encounter Results * SARS-COV-2 BY MOLECULAR (04/11/2022 7:53 AM CDT) SARSCOV2 NOT DETECTED (Referen ce Range for this test is Not Detected ) [facility] THERMOFISHER FAST DX 04/12/2022 9:54 AM CDT [facility] Comment:This test was perfor med by a RT-PCR method. Other Non-Phlebotomy Collection / Unknown 04/11/2022 7:53 AM CDT 04/11/2022 11:27 AM CDT Narrative [facility] - 04/12/2022 9:54 AM CDT Authorized Fact Sheets about this test for providers and patients are available at: https://www.fda.gov/medical-devices/axvzvsrzr-kltxoerbri-ssezzvg-devices/emergen cy-us e-authorizations us Markie Dey MD MICROBIOLOGY - GENERAL ORDERAB LES Final Result [facility] [address] [place] [address], documented in this encounter Visit Diagnoses Diagnosis Encounter for screening for COVID-19 documented in this encounter Additional Health Concerns Infection Onset Date Last Indicated Resolved Time COVID - 19 07/26/2021 05/30/2022 05/31/2022 12:2 3 AM CDT COVID - 19 Confirmed 05/30/2022 05/30/2022 08/2 022 12:16 AM CDT COVID - 19 08/08/2022 09/12/2022 09/22/2022 12:1 6 AM FUEL YARD OPERATOR COVID - 19 10/31/2022 01/16/2023 01/26/2023 12:1 6 AM CDT COVID - 19 09/25/2024 09/25/2024 09/25/2024 10:4 0 AM FUEL YARD OPERATOR documented as of this encounter Care Teams Calender Wind Up Helper Relationship Specialty Start Date End Date Alvaro Dinh MD [address] [facility] [[email or web address] [address] [place] [address] PCP - General Internal Medicine 08/09/20 03/20/23 Markie Dey MD [address] [facility] [address] [place] [address] PCP - General Family Medicine 03/21/23 Edvin Zamorano MD #2 [address] [facility] [address] [place] [address] Consulting Physician Urology 06/24/24 documented as of this encounter
--- OUTSIDE RECORDS SUMMARY | 2025-01-12 08:18 | XMS_ITS ---
Author Organization [facility] Care Team Providers Care Link Assembler Name Role Phone LEXA GUILLEN Unavailable Unavailable Allergies and adverse reactions No Known Allergies Care Team Name Role Address Phone Organization Dates [facility] [address] [place], [address], [place] (Office): [facility] 01/30/2021 - 03/01/2021 Immunizations Immunization Status Vaccine Details Vaccine Code CodeSystem Date Notes Influenza completed Influenza, high-dose, split virus, quadrivalent, injectable, preservative free 197 CVX created date: 02/06/2021 administere d date: 09/06/2020 Per InVisioneer Prevnar 13 completed created date: 02/06/2021 administere d date: 10/24/2020 Per [facility]eer Zoster (Shingles) completed zoster vaccine, live 121 CVX created date: 02/06/2021 administere d date: 10/24/2020 Per [facility]isioneer SARS-COV-2 (COVID-19) completed SARS-COV-2 (COVID-19) vaccine, mRNA, spike protein, LNP, preservative free, 25 mcg/0.25 mL dose Mfg: ciaran Step 2 of Multi-step with next step required 311 CVX created date: 02/06/2021 administere d date: 01/05/2021 Per In[facility]isioneer SARS-COV-2 (COVID-19) completed SARS-COV-2 (COVID-19) vaccine, mRNA, spike protein, LNP, preservative free, 25 mcg/0.25 mL dose Mfg: pfizer Step 1 of Multi-step with next step required 311 CVX created date: 02/06/2021 administere d date: 2020 Per [facility] Mental Status Section Date Assessment Total Score Description 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 02/06/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 Problems Problem # Description Date of onset Resolved Date Code CodeSystem Concern Status 1 ACUTE ON CHRONIC SYSTOLIC (CONGESTIVE) HEART FAILURE 01/31/[address] active 2 AGE-RELATED 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 CURRENT PATHOLOGICAL FRACTURE 01/31/[address] active [address]IOMYOPATHY, UNSPECIFIED 01/31/[address] active 4 CHRONIC ATRIAL FIBRILLATION, UNSPECIFIED 01/31/[address] active 5 CHRONIC KIDNEY DISEASE, STAGE 3 UNSPECIFIED 01/31/[address] active 6 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 01/31/[address] active 7 ENDOCARDITIS, VALVE UNSPECIFIED 01/31/[address] active 8 ESSENTIAL (PRIMARY) HYPERTENSION 01/31/[address] active 9 HYPOTHYROIDISM, UNSPECIFIED 01/31/[address] active 10 NEED FOR ASSISTANCE WITH PERSONAL CARE 01/31/[address] active 11 OBSTRUCTIVE AND REFLUX UROPATHY, UNSPECIFIED 01/31/[address] active 12 PLEURAL EFFUSION, NOT ELSEWHERE CLASSIFIED 01/31/[address] active 13 PULMONARY HYPERTENSION, UNSPECIFIED 01/31/[address] active 14 RHEUMATIC TRICUSPID INSUFFICIENCY 01/31/[address] active 15 TINEA UNGUIUM 01/31/20 21 01/30/[address] completed 16 TYPE 2 DIABETES MELLITUS WITHOUT COMPLICATIONS 01/31/20 21 01/30/[address] completed 17 UNSPECIFIED LACK OF EXPECTED NORMAL PHYSIOLOGICAL DEVELOPMENT IN CHILDHOOD 01/31/[address] active 18 URINARY TRACT INFECTION, SITE NOT SPECIFIED 01/31/[address] active 19 WEAKNESS 01/31/[address] active Reason for Referral No Reasons for Referral Entered Social History Social History Observation Description Start Date End Date Code Code System Current Smoking Status Tobacco smoking consumption unknown 921212967 SNOMED CT Sex Assigned At Male 1945 70306-8 [facility] Vital Signs Code Code System Vitals Name Values and Units Timing Information 9279-1 [facility] Respiratory Rate Value=16.0 Units=/m in 02/26/2021 8462-4 [facility] Blood Pressure-Diastolic Value=66 Un its=mmHg 02/26/2021 8480-6 [facility] Blood Pressure-Systolic Yzkps=751 Un its=mmHg 02/26/2021 8310-5 [facility] Body Temperature Value=97.5 Units= F 02/26/2021 8867-4 [facility] Heart rate Value=55.0 Units=/min 62748-3 [facility] O2 % BldC Oximetry Value=98.0 Units= % 02/26/2021 80283-1 [facility] Weight Agvru=382.5 Units=Lbs 8302-2 [facility] Height Value=73.0 Units=Inches 02/02/2021
--- OUTSIDE RECORDS SUMMARY | 2025-01-12 08:18 | XMS_ITS | Encounter Summary ---
Author Organization [facility] Address [address] [place] [address] Phone Care Team Providers Care Cutter Aluminum Sheet Name Role Phone Alvaro Dinh MD Primary Care Provider [phone] Markie Dey MD Primary Care Provider [phone] Edvin Zamorano MD Unavailable Encounter Details Date Type Department Care Team (Late Contact Info) Description 04/25/2022 [facility] 1 [place] [address] Markie Dey MD [address] [place] [address] [address] [place] [address] Encounter for screening for COVID-19 Social History [...] 10:00 AM CDT Office Visit [facility] #2 [place] [address] Yelena Moe MD #2 [facility] [address] [place] [address] documented as of this encounter Procedures Procedure Name Priority Date/Time Associated Diagnosis Comments SARS-COV-2 BY MOLECULAR Routine 04/25/2022 7:44 AM CDT Encounter for screening for COVID-19 documented in this encounter Results * SARS-COV-2 BY MOLECULAR (04/25/2022 7:44 AM CDT) SARSCOV2 NOT DETECTED (Referen ce Range for this test is Not Detected ) [facility] THERMOFISHER FAST DX 04/26/2022 6:17 AM CDT [facility] Comment:This test was perfor med by a RT-PCR method. Other Non-Phlebotomy Collection / Unknown 04/25/2022 7:44 AM CDT 04/25/2022 11:31 AM CDT Narrative [facility] - 04/26/2022 6:17 AM CDT Authorized Fact Sheets about this test for providers and patients are available at: https://www.fda.gov/medical-devices/tjrajnaoh-zukhefkswp-hlwxhep-devices/emergen cy-us e-authorizations us Markie Dey MD MICROBIOLOGY - GENERAL ORDERAB LES Final Result [facility] [address] [place] [address], documented in this encounter Visit Diagnoses Diagnosis Encounter for screening for COVID-19 documented in this encounter Additional Health Concerns Infection Onset Date Last Indicated Resolved Time COVID - 19 07/26/2021 05/30/2022 05/31/2022 12:2 3 AM CDT COVID - 19 Confirmed 05/30/2022 05/30/2022 08/2 022 12:16 AM CDT COVID - 19 08/08/2022 09/12/2022 09/22/2022 12:1 6 AM INDUSTRIAL X RAY OPERATOR COVID - 19 10/31/2022 01/16/2023 01/26/2023 12:1 6 AM CDT COVID - 19 09/25/2024 09/25/2024 09/25/2024 10:4 0 AM INDUSTRIAL X RAY OPERATOR documented as of this encounter Care Teams Cutter Aluminum Sheet Relationship Specialty Start Date End Date Alvaro Dinh MD [address] [facility] [address] [place] [address] PCP - General Internal Medicine 08/09/20 03/20/23 Markie Dey MD 4 [facility] [address] [place] [address] PCP - General Family Medicine 03/21/23 Edvin Zamorano MD #2 [address] [facility] [address] [place] [address] Consulting Physician Urology 06/24/24 documented as of this encounter
--- OUTSIDE RECORDS SUMMARY | 2025-01-12 08:18 | XMS_ITS | Encounter Summary ---
Author Organization [facility] Address [address] [place] [address] Phone Care Team Providers Care Airplane Flight Attendant Supervisor Name Role Phone Alvaro Dinh MD Primary Care Provider [phone] Markie Dey MD Primary Care Provider [phone] Edvin Zamorano MD Unavailable Encounter Details Date Type Department Care Team (Late Contact Info) Description 09/27/2021 [facility] 1 [place] [address] Markie Dey MD [address] [place] [address] [address] [place] [address] Social History Tobacco Use Types Packs/Day Years [...] 10:00 AM CDT Office Visit [facility] #2 [place] [address] Yelena Moe MD #2 [facility] [address] [place] [address] documented as of this encounter Procedures Procedure Name Priority Date/Time Associated Diagnosis Comments SARS-COV-2 BY MOLECULAR Routine 09/27/2021 7:36 AM PUBLIC ADDRESS SYSTEM OPERATOR documented in this encounter Results * SARS-COV-2 BY MOLECULAR (09/27/2021 7:36 AM PUBLIC ADDRESS SYSTEM OPERATOR) SARSCOV2 NOT DETECTED (Referen ce Range for this test is Not Detected ) [facility] THERMOFISHER FAST DX 09/27/2021 11:24 PM PUBLIC ADDRESS SYSTEM OPERATOR [facility] Comment:This test was perfor med by a RT-PCR method. Other No Phlebotomy Charged / Unknown 09/27/2021 7:36 AM PUBLIC ADDRESS SYSTEM OPERATOR 09/27/2021 10:45 AM PUBLIC ADDRESS SYSTEM OPERATOR Narrative [facility] - 09/27/2021 11:24 PM PUBLIC ADDRESS SYSTEM OPERATOR Authorized Fact Sheets about this test for providers and patients are available at: https://www.fda.gov/medical-devices/inmtakeun-tnngxgkrtk-cpkmiss-devices/emergen cy-us e-authorizations us Markie Dey MD MICROBIOLOGY - GENERAL ORDERAB LES Final Result [facility] [address] [place] [address], documented in this encounter Visit Diagnoses Not on filedocumented in this encounter Additional Health Concerns Infection Onset Date Last Indicated Resolved Time COVID - 19 07/26/2021 05/30/2022 05/31/2022 12:2 3 AM CDT COVID - 19 Confirmed 05/30/2022 05/30/2022 08/2 022 12:16 AM CDT COVID - 19 08/08/2022 09/12/2022 09/22/2022 12:1 6 AM PUBLIC ADDRESS SYSTEM OPERATOR COVID - 19 10/31/2022 01/16/2023 01/26/2023 12:1 6 AM CDT COVID - 19 09/25/2024 09/25/2024 09/25/2024 10:4 0 AM PUBLIC ADDRESS SYSTEM OPERATOR documented as of this encounter Care Teams Airplane Flight Attendant Supervisor Relationship Specialty Start Date End Date Alvaro Dinh MD [address] [place] [address] [place] [address] PCP - General Internal Medicine 08/09/20 03/20/23 Markie Dey MD 4 [facility] [address] [place] [address] PCP - General Family Medicine 03/21/23 Ed[facility]orano MD [facility]2 [facility] [address] [place] [address] Consulting Physician Urology 06/24/24 documented as of this encounter
--- OUTSIDE RECORDS SUMMARY | 2025-01-12 08:18 | XMS_ITS | Encounter Summary ---
Author Organization [facility] Address [address] [place] [address] Phone Care Team Providers Care Engraving Plate Maker Name Role Phone Markie Dey MD Primary Care Provider [phone] Edvin Zamorano MD Unavailable Encounter Details Date Type Department Care Team (Late st Contact Info) Description 12/09/2024 Results Follow-Up [facility] [place] [address] Edvin Zamorano MD #2 [address] [facility], [facility] [address] [place] [address] Social History Tobacco Use Types Packs/Day Years Used Date Smoking Tobacco: Never Smokeless Tobacco: Never Alcohol Use Standard Drinks/Week Comments Never 0 (1 standard drink = 0.6 oz pur e alcohol) [facility] Utilities Answer Date Recorded In the past 12 months has [employer], gas, oil, or water [employer] threatened to shut off services in your home? Patient unable to answer 09/25/2024 Social Connection and Isolation Panel [NHANES] A nswer Date Recorded In a typical week, how many times do you talk on the phone with family, friends, or neighbors? Patient declined 09/25/2024 How often do you get togethe r with friends or relatives? Patient declined 09/25/2024 How often do you attend adventist or yazidi serv ices? Patient declined 09/25/2024 Do you belong to any clubs o r organizations such as adventist groups, unions, fraternal or athletic groups, or [...] medical care, and heating? Patient declined 09/25/2024 [facility] - Occupational [...] any time in the past 12 m [facility], were you homeless or living in a custodial (including now)? Patient unable to answer 09/25/2024 [...] Description 03/12/2025 10:00 AM CDT Office Visit [facility] #2 [place] [address] Yelena Moe MD #2 [address] [facility] [address] [place] [address] documented as of this encounter Visit Diagnoses Not on filedocumented in this encounter Care Teams Engraving Plate Maker Relationship Specialty Start Date End Date Markie Dey MD [address] [place] [address] [facility] [address] [place] [address] PCP - General Family Medicine 03/21/23 Edvin Zamorano MD #2 [address] [facility] [address] [place] [address] Consulting Physician Urology 06/24/24 documented as of this encounter
--- OUTSIDE RECORDS SUMMARY | 2025-01-12 08:18 | XMS_ITS | Encounter Summary ---
Author Organization [facility] Address [address] [place] [address] Phone Care Team Providers Care Car Shunter Name Role Phone Alvaro Dinh MD Primary Care Provider [phone] Markie Dey MD Primary Care Provider [phone] Edvin Zamorano MD Unavailable Encounter Details Date Type Department Care Team (Late Contact Info) Description 12/27/20[facility] 1 [place] [address] Markie Dey MD [address] [place] [address] [address] [place] [address] Encounter for screening for COVID-19 Social History [...] Description 03/12/2025 10:00 AM CDT Office Visit [facility] #2 [place] [address] Yelena Moe MD #2 [facility] [address] [place] [address] documented as of this encounter Procedures Procedure Name Priority Date/Time Associated Diagnosis Comments SARS-COV-2 BY MOLECULAR Routine 12/27/2021 7:19 AM POULTRY CLEANER Encounter for screening for COVID-19 documented in this encounter Results * SARS-COV-2 BY MOLECULAR (12/27/2021 7:19 AM POULTRY CLEANER) SARSCOV2 NOT DETECTED (Referen ce Range for this test is Not Detected ) [facility] THERMOFISHER FAST DX 12/28/2021 9:36 AM POULTRY CLEANER [facility] Comment:This test was perfor med by a RT-PCR method. Other No Phlebotomy Charged / Unknown 12/27/2021 7:19 AM POULTRY CLEANER 12/27/2021 10:33 AM POULTRY CLEANER Narrative [facility] - 12/28/2021 9:36 AM POULTRY CLEANER Authorized Fact Sheets about this test for providers and patients are available at: https://www.fda.gov/medical-devices/pvwvgvjpu-snbtmgvizw-csytirs-devices/emergen -us e-authorizations us Markie Dey MD MICROBIOLOGY - GENERAL ORDERAB LES Final Result [facility] [address] [place] [id number], documented in this encounter Visit Diagnoses Diagnosis Encounter for screening for COVID-19 documented in this encounter Additional Health Concerns Infection Onset Date Last Indicated Resolved Time COVID - 19 07/26/2021 05/30/2022 05/31/2022 12:2 3 AM CDT COVID - 19 Confirmed 05/30/2022 05/30/2022 08/2 022 12:16 AM CDT COVID - 19 08/08/2022 09/12/2022 09/22/2022 12:1 6 AM POULTRY CLEANER COVID - 19 10/31/2022 01/16/2023 01/26/2023 12:1 6 AM CDT COVID - 19 09/25/2024 09/25/2024 09/25/2024 10:4 0 AM POULTRY CLEANER documented as of this encounter Care Teams Car Shunter Relationship Specialty Start Date End Date Alvaro Dinh MD [address] [facility] [address] [place] [address] PCP - General Internal Medicine 08/09/20 03/20/23 Markie Dey MD 4 [facility] [address] [place] [address] PCP - General Family Medicine 03/21/23 Edvin Zamorano MD #2 [address] [facility] [address] [place] [address] Consulting Physician Urology 06/24/24 documented as of this encounter
--- OUTSIDE RECORDS SUMMARY | 2025-01-12 08:18 | XMS_ITS | Encounter Summary ---
Author Organization [facility] Address [address] [place] [address] Phone Care Team Providers Care Security Sergeant Name Role Phone Alvaro Dinh MD Primary Care Provider [phone] Markie Dey MD Primary Care Provider [phone] Edvin Zamorano MD Unavailable Encounter Details Date Type Department Care Team (Late Contact Info) Description 08/30/2021 [facility] 1 [place] [address] Markie Dey MD [address] [place] [address] [address] [place] [address] Encounter for screening for COVID-19 Social History [...] 10:00 AM CDT Office Visit [facility] #2 [place] [address] Yelena Moe MD #2 [facility] [address] [place] [address] documented as of this encounter Procedures Procedure Name Priority Date/Time Associated Diagnosis Comments SARS-COV-2 BY MOLECULAR Routine 08/30/2021 7:45 AM CDT Encounter for screening for COVID-19 documented in this encounter Results * SARS-COV-2 BY MOLECULAR (08/30/2021 7:45 AM CDT) SARSCOV2 NOT DETECTED (Referen ce Range for this test is Not Detected ) [facility] THERMOFISHER FAST DX 08/31/2021 7:12 AM CDT [facility] Comment:This test was perfor med by a RT-PCR method. Other Non-Phlebotomy Collection / Unknown 08/30/2021 7:45 AM CDT 08/30/2021 12:17 PM CDT Narrative [facility] - 08/31/2021 7:12 AM CDT Authorized Fact Sheets about this test for providers and patients are available at: https://www.fda.gov/medical-devices/vhmyugnvq-eijdolbfut-nlbazzq-devices/emergen cy-us e-authorizations us Markie Dey MD MICROBIOLOGY - GENERAL ORDERAB LES Final Result [facility] [address] [place] [address], documented in this encounter Visit Diagnoses Diagnosis Encounter for screening for COVID-19 documented in this encounter Additional Health Concerns Infection Onset Date Last Indicated Resolved Time COVID - 19 07/26/2021 05/30/2022 05/31/2022 12:2 3 AM CDT COVID - 19 Confirmed 05/30/2022 05/30/2022 0816/2 022 12:16 AM CDT COVID - 19 08/08/2022 09/12/2022 09/22/2022 12:1 6 AM QUALITY CONTROL CHEMIST COVID - 19 10/31/2022 01/16/2023 01/26/2023 12:1 6 AM CDT COVID - 19 09/25/2024 09/25/2024 09/25/2024 10:4 0 AM QUALITY CONTROL CHEMIST documented as of this encounter Care Teams Security Sergeant Relationship Specialty Start Date End Date Alvaro Dinh MD [address] [facility] [address] [place] [address] PCP - General Internal Medicine 08/09/20 03/20/23 Markie Dey MD 4 [facility] [address] [place] [address] PCP - General Family Medicine 03/21/23 Edvin Zamorano MD #2 [address] [facility] [address] [place] [address] Consulting Physician Urology 06/24/24 documented as of this encounter
--- OUTSIDE RECORDS SUMMARY | 2025-01-12 08:18 | XMS_ITS | Encounter Summary ---
Author Organization [facility] Address [address] [place] [address] Phone Care Team Providers Care Floor Supervisor Name Role Phone Alvaro Dinh MD Primary Care Provider [phone] Markie Dey MD Primary Care Provider [phone] Edvin Zamorano MD Unavailable Encounter Details Date Type Department Care Team (Late Contact Info) Description 10/04/2021 Lab [facility] 1 [place] [address] Markie Dey MD [address] [place] [address] [address] [place] [address] Social History Tobacco Use Types Packs/Day Years [...] Description 03/12/2025 10:00 AM CDT Office Visit [facility] #2 [place] [address] Yelena Moe MD #2 [facility] [address] [place] [address] documented as of this encounter Procedures Procedure Name Priority Date/Time Associated Diagnosis Comments SARS-COV-2 BY MOLECULAR Routine 10/04/2021 7:35 AM SEISMOGRAPH SUPERVISOR documented in this encounter Results * SARS-COV-2 BY MOLECULAR (10/04/2021 7:35 AM SEISMOGRAPH SUPERVISOR) SARSCOV2 NOT DETECTED (Referen ce Range for this test is Not Detected ) [facility] THERMOFISHER FAST DX 10/04/2021 11:54 PM SEISMOGRAPH SUPERVISOR [facility] Comment:This test was perfor med by a RT-PCR method. Other Non-Phlebotomy Collection / Unknown 10/04/2021 7:35 AM SEISMOGRAPH SUPERVISOR 10/04/2021 10:47 AM SEISMOGRAPH SUPERVISOR Narrative [facility] - 10/04/2021 11:54 PM SEISMOGRAPH SUPERVISOR Authorized Fact Sheets about this test for providers and patients are available at: https://www.fda.gov/medical-devices/chqwysqta-qjzoqikrhi-zgggjub-devices/emergen cy-us e-authorizations us Markie Dey MD MICROBIOLOGY - GENERAL ORDERAB LES Final Result [facility] [address] [place] [address], documented in this encounter Visit Diagnoses Not on filedocumented in this encounter Additional Health Concerns Infection Onset Date Last Indicated Resolved Time COVID - 19 07/26/2021 05/30/2022 05/31/2022 12:2 3 AM CDT COVID - 19 Confirmed 05/30/2022 05/30/2022 08/2 022 12:16 AM CDT COVID - 19 08/08/2022 09/12/2022 09/22/2022 12:1 6 AM SEISMOGRAPH SUPERVISOR COVID - 19 10/31/2022 01/16/2023 01/26/2023 12:1 6 AM CDT COVID - 19 09/25/2024 09/25/2024 09/25/2024 10:4 0 AM SEISMOGRAPH SUPERVISOR documented as of this encounter Care Teams Floor Supervisor Relationship Specialty Start Date End Date Alvaro Dinh MD [address] [place] [address] [place] [address] PCP - General Internal Medicine 08/09/20 03/20/23 Markie Dey MD 4 [facility] [address] [place] [address] PCP - General Family Medicine 03/21/23 Edvin Zamorano MD #2 [facility] [address] [place] [address] Consulting Physician Urology 06/24/24 documented as of this encounter
--- OUTSIDE RECORDS SUMMARY | 2025-01-12 08:18 | XMS_ITS | Encounter Summary ---
Author Organization [facility] Address [address] [place] [address] Phone Care Team Providers Care Shared Services Manager Name Role Phone Alvaro Dinh MD Primary Care Provider [phone] Markie Dey MD Primary Care Provider [phone] Edvin Zamorano MD Unavailable Encounter Details Date Type Department Care Team (Late Contact Info) Description 02/14/2022 [facility] 1 [place] [address] Markie Dey MD [address] [place] [address] [address] [place] [address] Encounter for screening for COVID-19 Social History [...] Description 03/12/2025 10:00 AM CDT Office Visit [facility] #2 [place] [address] Yelena Moe MD #[address] [facility] [address] [place] [address] documented as of this encounter Procedures Procedure Name Priority Date/Time Associated Diagnosis Comments SARS-COV-2 BY MOLECULAR Routine 02/14/2022 7:49 AM CDT Encounter for screening for COVID-19 documented in this encounter Results * SARS-COV-2 BY MOLECULAR (02/14/2022 7:49 AM CDT) SARSCOV2 NOT DETECTED (Referen ce Range for this test is Not Detected ) [facility] THERMOFISHER FAST DX 02/15/2022 6:24 AM CDT [facility] Comment:This test was perfor med by a RT-PCR method. Other No Phlebotomy Charged / Unknown 02/14/2022 7:49 AM CDT 02/14/2022 12:28 PM CDT Narrative [facility] - 02/15/2022 6:24 AM CDT Authorized Fact Sheets about this test for providers and patients are available at: https://www.fda.gov/medical-devices/ggylcrbxv-xhmlaimzim-hdziell-devices/emergen cy-us e-authorizations us Markie Dey MD MICROBIOLOGY - GENERAL ORDERAB LES Final Result [facility] [address] [place] [address], documented in this encounter Visit Diagnoses Diagnosis Encounter for screening for COVID-19 documented in this encounter Additional Health Concerns Infection Onset Date Last Indicated Resolved Time COVID - 19 07/26/2021 05/30/2022 05/31/2022 12:2 3 AM CDT COVID - 19 Confirmed 05/30/2022 05/30/2022 08/2 022 12:16 AM CDT COVID - 19 08/08/2022 09/12/2022 09/22/2022 12:1 6 AM JAVA GROOVY DEVELOPER COVID - 19 10/31/2022 01/16/2023 01/26/2023 12:1 6 AM CDT COVID - 19 09/25/2024 09/25/2024 09/25/2024 10:4 0 AM JAVA GROOVY DEVELOPER documented as of this encounter Care Teams Shared Services Manager Relationship Specialty Start Date End Date Alvaro Dinh MD [address] [facility] [address] [place] [address] PCP - General Internal Medicine 08/09/20 03/20/23 Markie Dey MD [address] [facility] [address] [place] [address] PCP - General Family Medicine 03/21/23 Edvin Zamorano MD #2 [address] [facility] [address] [place] [address] Consulting Physician Urology 06/24/24 documented as of this encounter
--- OUTSIDE RECORDS SUMMARY | 2025-01-12 08:18 | XMS_ITS | Encounter Summary ---
Author Organization [facility] Address [address] [place] [address] Phone Care Team Providers Care Body Coverer Name Role Phone Alvaro Dinh MD Primary Care Provider [phone] Markie Dey MD Primary Care Provider [phone] Edvin Zamorano MD Unavailable Encounter Details Date Type Department Care Team (Late Contact Info) Description 11/29/2021 [facility] 1 [place] [address] Markie Dey MD [address] [place] [address] [address] [place] [address] Encounter for screening for COVID-19 Social History [...] Description 03/12/2025 10:00 AM CDT Office Visit [facility] #2 [place] [address] Yelena Moe MD #2 [facility] [address] [place] [address] documented as of this encounter Procedures Procedure Name Priority Date/Time Associated Diagnosis Comments SARS-COV-2 BY MOLECULAR Routine 11/29/2021 7:12 AM ITALIAN TUTOR Encounter for screening for COVID-19 documented in this encounter Results * SARS-COV-2 BY MOLECULAR (11/29/2021 7:12 AM ITALIAN TUTOR) SARSCOV2 NOT DETECTED (Referen ce Range for this test is Not Detected ) [facility] THERMOFISHER FAST DX 11/30/2021 9:00 AM ITALIAN TUTOR [facility] Comment:This test was perfor med by a RT-PCR method. Other Non-Phlebotomy Collection / Unknown 11/29/2021 7:12 AM ITALIAN TUTOR 11/29/2021 11:40 AM ITALIAN TUTOR Narrative [facility] - 11/30/2021 9:00 AM ITALIAN TUTOR Authorized Fact Sheets about this test for providers and patients are available at: https://www.fda.gov/medical-devices/dtjkwrfzm-tpmmpcccwx-fnptzut-devices/emergen -us e-authorizations us Markie Dey MD MICROBIOLOGY - GENERAL ORDERAB LES Final Result [facility] [address] [place] [address], documented in this encounter Visit Diagnoses Diagnosis Encounter for screening for COVID-19 documented in this encounter Additional Health Concerns Infection Onset Date Last Indicated Resolved Time COVID - 19 07/26/2021 05/30/2022 05/31/2022 12:2 3 AM CDT COVID - 19 Confirmed 05/30/2022 05/30/202206/19/2 022 12:16 AM CDT COVID - 19 08/08/2022 09/12/2022 09/22/2022 12:1 6 AM ITALIAN TUTOR COVID - 19 10/31/2022 01/16/2023 01/26/2023 12:1 6 AM CDT COVID - 19 09/25/2024 09/25/2024 09/25/2024 10:4 0 AM ITALIAN TUTOR documented as of this encounter Care Teams Body Coverer Relationship Specialty Start Date End Date Alvaro Dinh MD [address] [facility] [address] [place] [address] PCP - General Internal Medicine 08/09/20 03/20/23 Markie Dey MD 4 [facility] [address] [place] [address] PCP - General Family Medicine 03/21/23 Edvin Zamorano MD #2 [facility] [address] [place] [address] Consulting Physician Urology 06/24/24 documented as of this encounter
--- OUTSIDE RECORDS SUMMARY | 2025-01-12 08:18 | XMS_ITS | Encounter Summary ---
Author Organization [facility] Address [address] [place] [address] Phone Care Team Providers Care Camouflage Assembler Name Role Phone Alvaro Dinh MD Primary Care Provider [phone] Markie Dey MD Primary Care Provider [phone] Edvin Zamorano MD Unavailable Encounter Details Date Type Department Care Team (Late Contact Info) Description 01/10/2022 [facility] 1 [place] [address] Markie Dey MD [address] [place] [address] [address] [place] [address] Encounter for screening for COVID-19 Social History [...] [facility] #2 [place] [address] Yelena Moe MD #2 [facility] [address] [place] [address] documented as of this encounter Procedures Procedure Name Priority Date/Time Associated Diagnosis Comments SARS-COV-2 BY MOLECULAR Routine 01/10/2022 7:06 AM BEARINGIZER Encounter for screening for COVID-19 documented in this encounter Results * SARS-COV-2 BY MOLECULAR (01/10/2022 7:06 AM BEARINGIZER) SARSCOV2 NOT DETECTED (Referen ce Range for this test is Not Detected ) [facility] THERMOFISHER FAST DX 01/10/2022 11:03 PM BEARINGIZER [facility] Comment:This test was perfor med by a RT-PCR method. Other Non-Phlebotomy Collection / Unknown 01/10/2022 7:06 AM BEARINGIZER 01/10/2022 10:45 AM BEARINGIZER Narrative [facility] - 01/10/2022 11:03 PM BEARINGIZER Authorized Fact Sheets about this test for providers and patients are available at: https://www.fda.gov/medical-devices/tekyatpgu-tmteourzxp-ittnfym-devices/emergen -us e-authorizations us Markie Dey MD MICROBIOLOGY - GENERAL ORDERAB LES Final Result [facility] [address] [place] [address], documented in this encounter Visit Diagnoses Diagnosis Encounter for screening for COVID-19 documented in this encounter Additional Health Concerns Infection Onset Date Last Indicated Resolved Time COVID - 19 07/26/2021 05/30/2022 05/31/2022 12:2 3 AM CDT COVID - 19 Confirmed 05/30/2022 05/30/202206/19/2 022 12:16 AM CDT COVID - 19 08/08/2022 09/12/2022 09/22/2022 12:1 6 AM BEARINGIZER COVID - 19 10/31/2022 01/16/2023 01/26/2023 12:1 6 AM CDT COVID - 19 09/25/2024 09/25/2024 09/25/2024 10:4 0 AM BEARINGIZER documented as of this encounter Care Teams Camouflage Assembler Relationship Specialty Start Date End Date Alvaro Dinh MD [address] [facility] [address] [place] [address] PCP - General Internal Medicine 08/09/20 03/20/23 Markie Dey MD 4 [facility] [address] [place] [address] PCP - General Family Medicine 03/21/23 Edvin Zamorano MD #2 [facility] [address] [address] [place] [address] Consulting Physician Urology 06/24/24 documented as of this encounter
--- OUTSIDE RECORDS SUMMARY | 2025-01-12 08:18 | XMS_ITS | Encounter Summary ---
Author Organization [facility] Address [address] [place] [address] Phone Care Team Providers Care Production Counter Name Role Phone Alvaro Dinh MD Primary Care Provider [phone] Markie Dey MD Primary Care Provider [phone] Edvin Zamorano MD Unavailable Encounter Details Date Type Department Care Team (Late Contact Info) Description 09/20/2021 [facility] 1 [place] [address] Markie Dey MD [address] [place] [address] [address] [place] [address] Encounter for screening for COVID-19 Social History [...] Description 03/12/2025 10:00 AM CDT Office Visit [facility]Y #2 [place] [address] Yelena Moe MD #2 [facility] [address] [place] [address] documented as of this encounter Procedures Procedure Name Priority Date/Time Associated Diagnosis Comments SARS-COV-2 BY MOLECULAR Routine 09/20/2021 7:52 AM NURSE RESEARCHER Encounter for screening for COVID-19 documented in this encounter Results * SARS-COV-2 BY MOLECULAR (09/20/2021 7:52 AM NURSE RESEARCHER) SARSCOV2 NOT DETECTED (Referen ce Range for this test is Not Detected ) [facility] THERMOFISHER FAST DX 09/21/2021 9:13 AM NURSE RESEARCHER [facility] Comment:This test was perfor med by a RT-PCR method. Other Non-Phlebotomy Collection / Unknown 09/20/2021 7:52 AM NURSE RESEARCHER 09/20/2021 10:34 AM NURSE RESEARCHER Narrative [facility] - 09/21/2021 9:13 AM NURSE RESEARCHER Authorized Fact Sheets about this test for providers and patients are available at: https://www.fda.gov/medical-devices/ddhvfjtqt-jbsdgbeahw-jjuivkx-devices/emergen -us e-authorizations us Markie Dey MD MICROBIOLOGY - GENERAL ORDERAB LES Final Result [facility] [address] [place] [address], documented in this encounter Visit Diagnoses Diagnosis Encounter for screening for COVID-19 documented in this encounter Additional Health Concerns Infection Onset Date Last Indicated Resolved Time COVID - 19 07/26/2021 05/30/2022 05/31/2022 12:2 3 AM CDT COVID - 19 Confirmed 05/30/2022 05/30/202206/19/ 022 12:16 AM CDT COVID - 19 08/08/2022 09/12/2022 09/22/2022 12:1 6 AM NURSE RESEARCHER COVID - 19 10/31/2022 01/16/2023 01/26/2023 12:1 6 AM CDT COVID - 19 09/25/2024 09/25/2024 09/25/2024 10:4 0 AM NURSE RESEARCHER documented as of this encounter Care Teams Production Counter Relationship Specialty Start Date End Date Alvaro Dinh MD [address] [facility] [address] [place] [address] PCP - General Internal Medicine 08/09/20 03/20/23 Markie Dey MD 4 [facility] [address] [place] [address] PCP - General Family Medicine 03/21/23 Edvin Zamorano MD #2 [facility] [facility] [address] [place] [address] Consulting Physician Urology 06/24/24 documented as of this encounter
--- OUTSIDE RECORDS SUMMARY | 2025-01-12 08:19 | XMS_ITS | Encounter Summary ---
Author Organization [facility] Address [address] [place] [address] Phone Care Team Providers Care Property Manager Name Role Phone Alvaro Dinh MD Primary Care Provider [phone] Markie Dey MD Primary Care Provider [phone] Edvin Zamorano MD Unavailable Encounter Details Date Type Department Care Team (Late Contact Info) Description 11/29/2022 [facility] 1 [place] [address] Markie Dey MD [address] [place] [address] [address] [place] [address] Encounter for screening for COVID-19 Social History [...] 10:00 AM CDT Office Visit [facility] #2 [place] [address] Yelena Moe MD #2 [facility] [address] [place] [address] documented as of this encounter Procedures Procedure Name Priority Date/Time Associated Diagnosis Comments SARS-COV-2 BY MOLECULAR Routine 11/29/2022 8:04 AM LIME FILTER OPERATOR Encounter for screening for COVID-19 documented in this encounter Results * SARS-COV-2 BY MOLECULAR (11/29/2022 8:04 AM LIME FILTER OPERATOR) SARSCOV2 NOT DETECTED (Referen ce Range for this test is Not Detected ) [facility] THERMOFISHER FAST DX 11/29/2022 5:12 PM LIME FILTER OPERATOR [facility] Comment:This test was perfor med by a RT-PCR method. Other Non-Phlebotomy Collection / Unknown 11/29/2022 8:04 AM LIME FILTER OPERATOR 11/29/2022 9:41 AM LIME FILTER OPERATOR Narrative [facility] - 11/29/2022 5:12 PM LIME FILTER OPERATOR Authorized Fact Sheets about this test for providers and patients are available at: https://www.fda.gov/medical-devices/mgjrieumn-vhnmkrsody-rxtewde-devices/emergen -us e-authorizations Result [facility] Markie Dey MD MICROBIOLOGY - GENERAL ORDERAB LES Final Result [facility] [address] [place] [address], documented in this encounter Visit Diagnoses Diagnosis Encounter for screening for COVID-19 documented in this encounter Additional Health Concerns Infection Onset Date Last Indicated Resolved Time COVID - 19 10/31/2022 01/16/2023 01/26/2023 12:1 6 AM CDT COVID - 19 09/25/2024 09/25/2024 09/25/2024 10:4 0 AM LIME FILTER OPERATOR documented as of this encounter Care Teams Property Manager Relationship Specialty Start Date End Date Alvaro Dinh MD [address] [place] [address] PCP - General Internal Medicine 08/09/20 03/20/23 Markie Dey MD [address] [place] [address] [address] [place] [address] PCP - General Family Medicine 03/21/23 Edvin Zamorano MD #[address] [place] [address] Consulting Physician Urology 06/24/24 documented as of this encounter
--- OUTSIDE RECORDS SUMMARY | 2025-01-12 08:19 | XMS_ITS | Encounter Summary ---
Author Organization [facility] Address [address] [place] [address] Phone Care Team Providers Care Rn Midwife Name Role Phone Alvaro Dinh MD Primary Care Provider [phone] Markie Dey MD Primary Care Provider [phone] Edvin Zamorano MD Unavailable Encounter Details Date Type Department Care Team (Late Contact Info) Description 03/21/2022 [facility] 1 [place] [address] Markie Dey MD [address] [place] [address] [address] [place] [address] Encounter for screening for COVID-19 Social History [...] [facility] #2 [place] [address] Yelena Moe MD #2 [facility] [address] [place] [address] documented as of this encounter Procedures Procedure Name Priority Date/Time Associated Diagnosis Comments SARS-COV-2 BY MOLECULAR Routine 03/21/2022 7:33 AM CDT Encounter for screening for COVID-19 documented in this encounter Results * SARS-COV-2 BY MOLECULAR (03/21/2022 7:33 AM CDT) SARSCOV2 NOT DETECTED (Referen ce Range for this test is Not Detected ) [facility] THERMOFISHER FAST DX 03/22/2022 6:32 PM CDT [facility] Comment:This test was perfor med by a RT-PCR method. Other Non-Phlebotomy Collection / Unknown 03/21/2022 7:33 AM CDT 03/21/2022 12:22 PM CDT Narrative [facility] - 03/22/2022 6:32 PM CDT Authorized Fact Sheets about this test for providers and patients are available at: https://www.fda.gov/medical-devices/ckdpsartz-phgjizprjg-qyuohre-devices/emergen cy-us e-authorizations us Markie Dey MD MICROBIOLOGY - GENERAL ORDERAB LES Final Result [facility] [address] [place] [address], documented in this encounter Visit Diagnoses Diagnosis Encounter for screening for COVID-19 documented in this encounter Additional Health Concerns Infection Onset Date Last Indicated Resolved Time COVID - 19 07/26/2021 05/30/2022 05/31/2022 12:2 3 AM CDT COVID - 19 Confirmed 05/30/2022 05/30/2022 0816/2 022 12:16 AM CDT COVID - 19 08/08/2022 09/12/2022 09/22/2022 12:1 6 AM OUTSIDE SALES ENGINEER COVID - 19 10/31/2022 01/16/2023 01/26/2023 12:1 6 AM CDT COVID - 19 09/25/2024 09/25/2024 09/25/2024 10:4 0 AM OUTSIDE SALES ENGINEER documented as of this encounter Care Teams Rn Midwife Relationship Specialty Start Date End Date Alvaro Dinh MD [address] [facility] [address] [place] [address] PCP - General Internal Medicine 08/09/20 03/20/23 Markie Dey MD [address] [facility] [address] [place] [address] PCP - General Family Medicine 03/21/23 Edvin Zamorano MD #2 [facility] [address] [place] [address] Consulting Physician Urology 06/24/24 documented as of this encounter
--- OUTSIDE RECORDS SUMMARY | 2025-01-12 08:19 | XMS_ITS | Encounter Summary ---
Author Organization [facility] Address [address] [place] [address] Phone Care Team Providers Care Fruit Farmworker Name Role Phone Alvaro Dinh MD Primary Care Provider [phone] Markie Dey MD Primary Care Provider [phone] Edvin Zamorano MD Unavailable Encounter Details Date Type Department Care Team (Late Contact Info) Description 03/28/2022 [facility] 1 [place] [address] Markie Dey MD [address] [place] [address] [address] [place] [address] Encounter for screening for COVID-19 Social History [...] Description 03/12/2025 10:00 AM CDT Office Visit [facility] #2 [place] [address] Yelena Moe MD #[address] [facility] [address] [place] [address] documented as of this encounter Procedures Procedure Name Priority Date/Time Associated Diagnosis Comments SARS-COV-2 BY MOLECULAR Routine 03/28/2022 7:35 AM CDT Encounter for screening for COVID-19 documented in this encounter Results * SARS-COV-2 BY MOLECULAR (03/28/2022 7:35 AM CDT) SARSCOV2 NOT DETECTED (Referen ce Range for this test is Not Detected ) [facility] THERMOFISHER FAST DX 03/29/2022 5:58 PM CDT [facility] Comment:This test was perfor med by a RT-PCR method. Other Venipuncture / Unknown 03/28/2022 7:35 AM CDT 03/28/2022 12:32 PM CDT Narrative [facility] - 03/29/2022 5:58 PM CDT Authorized Fact Sheets about this test for providers and patients are available at: https://www.fda.gov/medical-devices/rohegzflx-ilsfxogwgk-yrwiahq-devices/emergen cy-us e-authorizations us Markie Dey MD MICROBIOLOGY - GENERAL ORDERAB LES Final Result [facility] [address] [place] [address], documented in this encounter Visit Diagnoses Diagnosis Encounter for screening for COVID-19 documented in this encounter Additional Health Concerns Infection Onset Date Last Indicated Resolved Time COVID - 19 07/26/2021 05/30/2022 05/31/2022 12:2 3 AM CDT COVID - 19 Confirmed 05/30/2022 05/30/2022 08/ 022 12:16 AM CDT COVID - 19 08/08/2022 09/12/2022 09/22/2022 12:1 6 AM PAPETERIE TABLE ASSEMBLER COVID - 19 10/31/2022 01/16/2023 01/26/2023 12:1 6 AM CDT COVID - 19 09/25/2024 09/25/2024 09/25/2024 10:4 0 AM PAPETERIE TABLE ASSEMBLER documented as of this encounter Care Teams Fruit Farmworker Relationship Specialty Start Date End Date Alvaro Dinh MD [address] [facility] [address] [place] [address] PCP - General Internal Medicine 08/09/20 03/20/23 Markie Dey MD 4 [facility] [address] [place] [address] PCP - General Family Medicine 03/21/23 Edvin Zamorano MD #2 [facility] [address] [place] [address] Consulting Physician Urology 06/24/24 documented as of this encounter
--- OUTSIDE RECORDS SUMMARY | 2025-01-12 08:19 | XMS_ITS | Encounter Summary ---
Author Organization [facility] Address [address] [place] [address] Phone Care Team Providers Care New Media Strategist Name Role Phone Alvaro Dinh MD Primary Care Provider [phone] Markie Dey MD Primary Care Provider [phone] Edvin Zamorano MD Unavailable Encounter Details Date Type Department Care Team (Late Contact Info) Description 11/21/2022 [facility] 1 [place] [address] Markie Dey MD [address] [place] [address] [address] [place] [address] Encounter for screening for COVID-19 Social History [...] Description 03/12/2025 10:00 AM CDT Office Visit [facility] #2 [place] [address] Yelena Moe MD #2 [facility] [address] [place] [address] documented as of this encounter Procedures Procedure Name Priority Date/Time Associated Diagnosis Comments SARS-COV-2 BY MOLECULAR Routine 11/21/2022 7:36 AM NURSE STAFF INDUSTRIAL Encounter for screening for COVID-19 documented in this encounter Results * SARS-COV-2 BY MOLECULAR (11/21/2022 7:36 AM NURSE STAFF INDUSTRIAL) SARSCOV2 NOT DETECTED (Referen ce Range for this test is Not Detected ) [facility] THERMOFISHER FAST DX 11/21/2022 8:36 PM NURSE STAFF INDUSTRIAL [facility] Comment:This test was perfor med by a RT-PCR method. Other COVID 19 Collection / Unknown 11/21/2022 7:36 AM NURSE STAFF INDUSTRIAL 11/21/2022 9:48 AM NURSE STAFF INDUSTRIAL N[facility]ative [facility] - 11/21/2022 8:36 PM NURSE STAFF INDUSTRIAL Authorized Fact Sheets about this test for providers and patients are available at: https://www.fda.gov/medical-devices/ldmlmowqx-hyvinultif-tdquxdp-devices/emergen -us e-authorizations Result [facility] Markie Dey MD MICROBIOLOGY - GENERAL ORDERAB LES Final Result [facility] [address] [place] [address], documented in this encounter Visit Diagnoses Diagnosis Encounter for screening for COVID-19 documented in this encounter Additional Health Concerns Infection Onset Date Last Indicated Resolved Time COVID - 19 10/31/2022 01/16/2023 01/26/2023 12:1 6 AM CDT COVID - 19 09/25/2024 09/25/2024 09/25/2024 10:4 0 AM NURSE STAFF INDUSTRIAL documented as of this encounter Care Teams New Media Strategist Relationship Specialty Start Date End Date Alvaro Dinh MD [address] [place] [address] PCP - General Internal Medicine 08/09/20 03/20/23 Markie Dey MD [address] [place] [address] [address] [place] [address] PCP - General Family Medicine 03/21/23 Edvin Zamorano MD #[address] [place] [address] Consulting Physician Urology 06/24/24 documented as of this encounter
--- OUTSIDE RECORDS SUMMARY | 2025-01-12 08:19 | XMS_ITS | Encounter Summary ---
Author Organization [facility] Address [address] [place] [address] Phone Care Team Providers Care Interventional Radiology Rn Name Role Phone Alvaro Dinh MD Primary Care Provider [phone] Markie Dey MD Primary Care Provider [phone] Edvin Zamorano MD Unavailable Encounter Details Date Type Department Care Team (Late Contact Info) Description 12/05/2022 [facility] 1 [place] [address] Markie Dey MD [address] [place] [address] [address] [place] [address] Encounter for screening for COVID-19 Social History [...] Description 03/12/2025 10:00 AM CDT Office Visit [facility] #2 [place] [address] Yelena Moe MD #2 [facility] [address] [place] [address] documented as of this encounter Procedures Procedure Name Priority Date/Time Associated Diagnosis Comments SARS-COV-2 BY MOLECULAR Routine 12/05/2022 7:40 AM WIRE PREPARATION WORKER Encounter for screening for COVID-19 documented in this encounter Results * SARS-COV-2 BY MOLECULAR (12/05/2022 7:40 AM WIRE PREPARATION WORKER) SARSCOV2 NOT DETECTED (Referen ce Range for this test is Not Detected ) [facility] THERMOFISHER FAST DX 12/05/2022 9:47 PM WIRE PREPARATION WORKER [facility] Comment:This test was perfor med by a RT-PCR method. Other Non-Phlebotomy Collection / Unknown 12/05/2022 7:40 AM WIRE PREPARATION WORKER 12/05/2022 10:16 AM WIRE PREPARATION WORKER Narrative [facility] - 12/05/2022 9:47 PM WIRE PREPARATION WORKER Authorized Fact Sheets about this test for providers and patients are available at: https://www.fda.gov/medical-devices/mcddmgikl-qpdyabwtgq-iondgnu-devices/emergen -us e-authorizations Result [facility] Markie Dey MD MICROBIOLOGY - GENERAL ORDERAB LES Final Result [facility] [address] [place] [address], documented in this encounter Visit Diagnoses Diagnosis Encounter for screening for COVID-19 documented in this encounter Additional Health Concerns Infection Onset Date Last Indicated Resolved Time COVID - 19 10/31/2022 01/16/2023 01/26/2023 12:1 6 AM CDT COVID - 19 09/25/2024 09/25/2024 09/25/2024 10:4 0 AM WIRE PREPARATION WORKER documented as of this encounter Care Teams Interventional Radiology Rn Relationship Specialty Start Date End Date Alvaro Dinh MD [address] [place] [address] PCP - General Internal Medicine 08/09/20 03/20/23 Markie Dey MD [address] [place] [address] [address] [place] [address] PCP - General Family Medicine 03/21/23 Edvin Zamorano MD #[address] [place] [address] Consulting Physician Urology 06/24/24 documented as of this encounter
--- OUTSIDE RECORDS SUMMARY | 2025-01-12 08:19 | XMS_ITS | Encounter Summary ---
Author Organization [facility] Address [address] [place] [address] Phone Care Team Providers Care Spare Person Name Role Phone Alvaro Dinh MD Primary Care Provider [phone] Markie Dey MD Primary Care Provider [phone] Edvin Zamorano MD Unavailable Encounter Details Date Type Department Care Team (Late Contact Info) Description 11/14/2022 [facility] 1 [place] [address] Markie Dey MD [address] [place] [address] [address] [place] [address] Encounter for screening for COVID-19 Social History [...] 10:00 AM CDT Office Visit [facility] UR[facility] #2 [place] [address] Yelena Moe MD #2 [facility] [address] [place] [address] documented as of this encounter Procedures Procedure Name Priority Date/Time Associated Diagnosis Comments SARS-COV-2 BY MOLECULAR Routine 11/14/2022 7:43 AM RECLAMATION ENGINEER Encounter for screening for COVID-19 documented in this encounter Results * SARS-COV-2 BY MOLECULAR (11/14/2022 7:43 AM RECLAMATION ENGINEER) SARSCOV2 NOT DETECTED (Referen ce Range for this test is Not Detected ) [facility] THERMOFISHER FAST DX 11/14/2022 10:53 PM RECLAMATION ENGINEER [facility] Comment:This test was perfor med by a RT-PCR method. Other Non-Phlebotomy Collection / Unknown 11/14/2022 7:43 AM RECLAMATION ENGINEER 11/14/2022 10:20 AM RECLAMATION ENGINEER Narrative [facility] - 11/14/2022 10:53 PM RECLAMATION ENGINEER Authorized Fact Sheets about this test for providers and patients are available at: https://www.fda.gov/medical-devices/epwbsoiqy-efgqrnyjzs-vzzieiv-devices/emergen -us e-authorizations Result [facility] Markie Dey MD MICROBIOLOGY - GENERAL ORDERAB LES Final Result [facility] [address] [place] [address], documented in this encounter Visit Diagnoses Diagnosis Encounter for screening for COVID-19 documented in this encounter Additional Health Concerns Infection Onset Date Last Indicated Resolved Time COVID - 19 10/31/2022 01/16/2023 01/26/2023 12:1 6 AM CDT COVID - 19 09/25/2024 09/25/2024 09/25/2024 10:4 0 AM RECLAMATION ENGINEER documented as of this encounter Care Teams Spare Person Relationship Specialty Start Date End Date Alvaro Dinh MD [address] [place] [address] PCP - General Internal Medicine 08/09/20 03/20/23 Markie Dey MD [address] [place] [address] [address] [facility] [place] [address] PCP - General Family Medicine 03/21/23 Edvin Zamorano MD #[address] [place] [address] Consulting Physician Urology 06/24/24 documented as of this encounter
--- OUTSIDE RECORDS SUMMARY | 2025-01-12 08:19 | XMS_ITS | Encounter Summary ---
Author Organization [facility] Address [address] [place] [address] Phone Care Team Providers Care Mental Health Counselor Name Role Phone Alvaro Dinh MD Primary Care Provider Markie Dey MD Primary Care Provider [phone] Edvin Zamorano MD Unavailable Encounter Details Date Type Department Care Team (Late Contact Info) Description 05/09/2022 [facility] 1 [place] [address] Markie Dey MD [address] [place] [address] [address] [place] [address] Encounter for screening for COVID-19 Social History [...] Description 03/12/2025 10:00 AM CDT Office Visit [facility] #2 [place] [address] Yelena Moe MD #2 [facility] [address] [place] [address] documented as of this encounter Procedures Procedure Name Priority Date/Time Associated Diagnosis Comments SARS-COV-2 BY MOLECULAR Routine 05/09/2022 7:32 AM CDT Encounter for screening for COVID-19 documented in this encounter Results * SARS-COV-2 BY MOLECULAR (05/09/2022 7:32 AM CDT) SARSCOV2 NOT DETECTED (Referen ce Range for this test is Not Detected ) [facility] THERMOFISHER FAST DX 05/10/2022 5:59 AM CDT [facility] Comment:This test was perfor med by a RT-PCR method. Other Non-Phlebotomy Collection / Unknown 05/09/2022 7:32 AM CDT 05/09/2022 11:10 AM CDT Narrative [facility] - 05/10/2022 5:59 AM CDT Authorized Fact Sheets about this test for providers and patients are available at: https://www.fda.gov/medical-devices/kkqceijbs-tbzbibgpoj-whwbsvg-devices/emergen cy-us e-authorizations us Markie Dey MD MICROBIOLOGY - GENERAL ORDERAB LES Final Result [facility] [address] [place] [address], documented in this encounter Visit Diagnoses Diagnosis Encounter for screening for COVID-19 documented in this encounter Additional Health Concerns Infection Onset Date Last Indicated Resolved Time COVID - 19 07/26/2021 05/30/2022 05/31/2022 12:2 3 AM CDT COVID - 19 Confirmed 05/30/2022 05/30/2022 0816/2 022 12:16 AM CDT COVID - 19 08/08/2022 09/12/2022 09/22/2022 12:1 6 AM POLICE ACADEMY PROGRAM COORDINATOR COVID - 19 10/31/2022 01/16/2023 01/26/2023 12:1 6 AM CDT COVID - 19 09/25/2024 09/25/2024 09/25/2024 10:4 0 AM POLICE ACADEMY PROGRAM COORDINATOR documented as of this encounter Care Teams Mental Health Counselor Relationship Specialty Start Date End Date Alvaro Dinh MD [address] [facility] [address] [place] [address] PCP - General Internal Medicine 08/09/20 03/20/23 Markie Dey MD [address] [facility] [address] [place] [address] PCP - General Family Medicine 03/21/23 Edvin Zamorano MD #2 [facility] [address] [place] [address] Consulting Physician Urology 06/24/24 documented as of this encounter
--- OUTSIDE RECORDS SUMMARY | 2025-01-12 08:19 | XMS_ITS | Encounter Summary ---
Author Organization [facility] Address [address] [place] [address] Phone Care Team Providers Care International First Officer Name Role Phone Alvaro Dinh MD Primary Care Provider [phone] Markie Dey MD Primary Care Provider [phone] Edvin Zamorano MD Unavailable Encounter Details Date Type Department Care Team (Late Contact Info) Description 11/07/2022 [facility] 1 [place] [address] Markie Dey MD [address] [place] [address] [address] [place] [address] Encounter for screening for COVID-19 Social History [...] Visit [facility] #2 [place] [address] Yelena Moe MD #2 [facility] [address] [place] [address] documented as of this encounter Procedures Procedure Name Priority Date/Time Associated Diagnosis Comments SARS-COV-2 BY MOLECULAR Routine 11/07/2022 7:41 AM WELL SHOOTER Encounter for screening for COVID-19 documented in this encounter Results * SARS-COV-2 BY MOLECULAR (11/07/2022 7:41 AM WELL SHOOTER) SARSCOV2 NOT DETECTED (Referen ce Range for this test is Not Detected ) [facility] THERMOFISHER FAST DX 11/07/2022 9:20 PM WELL SHOOTER [facility] Comment:This test was perfor med by a RT-PCR method. Other COVID 19 Collection / Unknown 11/07/2022 7:41 AM WELL SHOOTER 11/07/2022 9:30 AM WELL SHOOTER Narrative [facility] - 11/07/2022 9:20 PM WELL SHOOTER Authorized Fact Sheets about this test for providers and patients are available at: https://www.fda.gov/medical-devices/keuffakcz-qkxccajrsf-drqvrqh-devices/emergen -us e-authorizations Result [facility] Markie Dey MD MICROBIOLOGY - GENERAL ORDERAB LES Final Result [facility] [address] [place] [address], documented in this encounter Visit Diagnoses Diagnosis Encounter for screening for COVID-19 documented in this encounter Additional Health Concerns Infection Onset Date Last Indicated Resolved Time COVID - 19 10/31/2022 01/16/2023 01/26/2023 12:1 6 AM CDT COVID - 19 09/25/2024 09/25/2024 09/25/2024 10:4 0 AM WELL SHOOTER documented as of this encounter Care Teams International First Officer Relationship Specialty Start Date End Date Alvaro Dinh MD [address] [place] [address] PCP - General Internal Medicine 08/09/20 03/20/23 Markie Dey MD [address] [place] [address] [address] [place] [address] PCP - General Family Medicine 03/21/23 Edvin Zamorano MD #[address] [place] [address] Consulting Physician Urology 06/24/24 documented as of this encounter
--- OUTSIDE RECORDS SUMMARY | 2025-01-12 08:19 | XMS_ITS | Encounter Summary ---
Author Organization [facility] Address [address] [place] [address] Phone Care Team Providers Care Almond Sorter Name Role Phone Alvaro Dinh MD Primary Care Provider [phone] Markie Dey MD Primary Care Provider [phone] Edvin Zamorano MD Unavailable Encounter Details Date Type Department Care Team (Late Contact Info) Description 05/02/2022 [facility] 1 [place] [address] Markie Dey MD [address] [place] [address] [address] [place] [address] Encounter for screening for COVID-19 Social History [...] 10:00 AM CDT Office Visit [facility] UROLOGY #2 [place] [address] Yelena Moe MD #2 [facility] [address] [place] [address] documented as of this encounter Procedures Procedure Name Priority Date/Time Associated Diagnosis Comments SARS-COV-2 BY MOLECULAR Routine 05/02/2022 7:43 AM CDT Encounter for screening for COVID-19 documented in this encounter Results * SARS-COV-2 BY MOLECULAR (05/02/2022 7:43 AM CDT) SARSCOV2 NOT DETECTED (Referen ce Range for this test is Not Detected ) [facility] THERMOFISHER FAST DX 05/02/2022 11:45 PM CDT [facility] Comment:This test was perfor med by a RT-PCR method. Other Non-Phlebotomy Collection / Unknown 05/02/2022 7:43 AM CDT 05/02/2022 9:49 AM CDT Narrative [facility] - 05/02/2022 11:45 PM CDT Authorized Fact Sheets about this test for providers and patients are available at: https://www.fda.gov/medical-devices/hqmelaatl-grszwgfwpn-tyydgkg-devices/emergen cy-us e-authorizations us Markie Dey MD MICROBIOLOGY - GENERAL ORDERAB LES Final Result [facility] [address] [place] [address], documented in this encounter Visit Diagnoses Diagnosis Encounter for screening for COVID-19 documented in this encounter Additional Health Concerns Infection Onset Date Last Indicated Resolved Time COVID - 19 07/26/2021 05/30/2022 05/31/2022 12:2 3 AM CDT COVID - 19 Confirmed 05/30/2022 05/30/2022 0816/2 022 12:16 AM CDT COVID - 19 08/08/2022 09/12/2022 09/22/2022 12:1 6 AM CLINICAL NURSING PROFESSOR COVID - 19 10/31/2022 01/16/2023 01/26/2023 12:1 6 AM CDT COVID - 19 09/25/2024 09/25/2024 09/25/2024 10:4 0 AM CLINICAL NURSING PROFESSOR documented as of this encounter Care Teams Almond Sorter Relationship Specialty Start Date End Date Alvaro Dinh MD [address] [facility] [address] [place] [address] PCP - General Internal Medicine 08/09/20 03/20/23 Makrie Dey MD [address] [facility] [address] [place] [address] PCP - General Family Medicine 03/21/23 Edvin Zamorano MD #2 [address] [facility] 300 [place] [address] Consulting Physician Urology 06/24/24 documented as of this encounter
--- OUTSIDE RECORDS SUMMARY | 2025-01-12 08:19 | XMS_ITS | Encounter Summary ---
Author Organization [facility] Address [address] [place] [address] Phone Care Team Providers Care Plate Grainer Name Role Phone Alvaro Dinh MD Primary Care Provider [phone] Markie Dey MD Primary Care Provider [phone] Edvin Zamorano MD Unavailable Encounter Details Date Type Department Care Team (Late Contact Info) Description 09/12/2022 [facility] 1 [place] [address] Markie Dey MD [address] [place] [address] [address] [place] [address] Encounter for screening for COVID-19 Social History [...] Description 03/12/2025 10:00 AM CDT Office Visit [facility] UROLOGY #2 [place] [address] Yelena Moe MD #2 [facility] 300 [place] [address] documented as of this encounter Procedures Procedure Name Priority Date/Time Associated Diagnosis Comments SARS-COV-2 BY MOLECULAR Routine 09/12/2022 7:47 AM FRAMER Encounter for screening for COVID-19 documented in this encounter Results * SARS-COV-2 BY MOLECULAR (09/12/2022 7:47 AM FRAMER) SARSCOV2 NOT DETECTED (Referen ce Range for this test is Not Detected ) [facility] THERMOFISHER FAST DX 09/13/2022 4:42 AM FRAMER [facility] Comment:This test was perfor med by a RT-PCR method. Other COVID 19 Collection / Unknown 09/12/2022 7:47 AM FRAMER 09/12/2022 11:35 AM FRAMER Narrative [facility] - 09/13/2022 4:42 AM FRAMER Authorized Fact Sheets about this test for providers and patients are available at: https://www.fda.gov/medical-devices/tcurjhjyt-dzxiauroai-gyhwthp-devices/emergen -us e-authorizations Result [facility] Markie Dey MD MICROBIOLOGY - GENERAL ORDERAB LES Final Result [facility] [address] [facility] [place] [address], documented in this encounter Visit Diagnoses Diagnosis Encounter for screening for COVID-19 documented in this encounter Additional Health Concerns Infection Onset Date Last Indicated Resolved Time COVID - 19 08/08/2022 09/12/2022 09/22/2022 12:1 6 AM FRAMER COVID - 19 10/31/2022 01/16/2023 01/26/2023 12:1 6 AM CDT COVID - 19 09/25/2024 09/25/2024 09/25/2024 10:4 0 AM FRAMER documented as of this encounter Care Teams Plate Grainer Relationship Specialty Start Date End Date Alvaro Dinh MD [address] [facility] 160 [place] [address] PCP - General Internal Medicine 08/09/20 03/20/23 Markie Dey MD 4 [facility] [address] [place] [address] PCP - General Family Medicine 03/21/23 Edvin Zamorano MD #2 [facility] [address] [place] [address] Consulting Physician Urology 06/24/24 documented as of this encounter
--- OUTSIDE RECORDS SUMMARY | 2025-01-12 08:19 | XMS_ITS | Encounter Summary ---
Author Organization [facility] Address [address] [place] [address] Phone Care Team Providers Care Gate Agent Name Role Phone Alvaro Dinh MD Primary Care Provider [phone] Markie Dey MD Primary Care Provider [phone] Edvin Zamorano MD Unavailable Encounter Details Date Type Department Care Team (Late Contact Info) Description 08/22/2022 [facility] 1 [place] [address] Markie Dey MD [address] [place] [address] [address] [place] [address] Encounter for screening for COVID-19 Social History [...] Description 03/12/2025 10:00 AM CDT Office Visit [facility] UROLOGY #2 [place] [address] Yelena Moe MD #2 [facility] 300 [place] [address] documented as of this encounter Procedures Procedure Name Priority Date/Time Associated Diagnosis Comments SARS-COV-2 BY MOLECULAR Routine 08/22/2022 7:59 AM CDT Encounter for screening for COVID-19 documented in this encounter Results * SARS-COV-2 BY MOLECULAR (08/22/2022 7:59 AM CDT) SARSCOV2 NOT DETECTED (Referen ce Range for this test is Not Detected ) [facility] THERMOFISHER FAST DX 08/22/2022 11:59 PM CDT [facility] Comment:This test was perfor med by a RT-PCR method. Other Non-Phlebotomy Collection / Unknown 08/22/2022 7:59 AM CDT 08/22/2022 11:29 AM CDT [facility] - 08/22/2022 11:59 PM CDT Authorized Fact Sheets about this test for providers and patients are available at: https://www.fda.gov/medical-devices/riudnubst-qufsnrmyyb-uuwhooo-devices/emergen cy-us e-authorizations us Markie Dey MD MICROBIOLOGY - GENERAL ORDERAB LES Final Result [facility] [address] [place] [address], documented in this encounter Visit Diagnoses Diagnosis Encounter for screening for COVID-19 documented in this encounter Additional Health Concerns Infection Onset Date Last Indicated Resolved Time COVID - 19 08/08/2022 09/12/2022 09/22/2022 12:1 6 AM DISTRIBUTION COORDINATOR COVID - 19 10/31/2022 01/16/2023 01/26/2023 12:1 6 AM CDT COVID - 19 09/25/2024 09/25/2024 09/25/2024 10:4 0 AM DISTRIBUTION COORDINATOR documented as of this encounter Care Teams Gate Agent Relationship Specialty Start Date End Date Alvaro Dinh MD [address] [facility] [address] [place] [address] PCP - General Internal Medicine 10/6/20 5/17/23 Markie Dey MD 4 [facility] [address] [place], [place] [address] PCP - General Family Medicine 03/21/23 Edvin Zamorano MD #2 [address] [facility] [address] [place] [address] Consulting Physician Urology 06/24/24 documented as of this encounter
--- OUTSIDE RECORDS SUMMARY | 2025-01-12 08:19 | XMS_ITS | Encounter Summary ---
Author Organization [facility] Address [address] [place] [address] Phone Care Team Providers Care Hardware Supplies Sales Representative Name Role Phone Alvaro Dinh MD Primary Care Provider [phone] Markie Dey MD Primary Care Provider [phone] Edvin Zamorano MD Unavailable Encounter Details Date Type Department Care Team (Late Contact Info) Description 08/08/2022 [facility] 1 [place] [address] Markie Dey MD [address] [place] [address] [address] [place] [address] Encounter for screening for COVID-19 Social History [...] Description 03/12/2025 10:00 AM CDT Office Visit [facility] UROLOGY #2 [place] [address] Yelena Moe MD #2 [facility] [address] [place] [address] documented as of this encounter Procedures Procedure Name Priority Date/Time Associated Diagnosis Comments SARS-COV-2 BY MOLECULAR Routine 08/08/2022 7:56 AM CDT Encounter for screening for COVID-19 documented in this encounter Results * SARS-COV-2 BY MOLECULAR (08/08/2022 7:56 AM CDT) SARSCOV2 NOT DETECTED (Referen ce Range for this test is Not Detected ) [facility] THERMOFISHER FAST DX 08/09/2022 12:29 AM CDT [facility] Comment:This test was perfor med by a RT-PCR method. Other No Phlebotomy Charged / Unknown 08/08/2022 7:56 AM CDT 08/08/2022 2:01 PM CDT Narrative [facility] - 08/09/2022 12:29 AM CDT Authorized Fact Sheets about this test for providers and patients are available at: https://www.fda.gov/medical-devices/npcamspqn-mqbolpunya-xotsovb-devices/emergen cy-us e-authorizations us Markie Dey MD MICROBIOLOGY - GENERAL ORDERAB LES Final Result [facility] [address] [place] [address], documented in this encounter Visit Diagnoses Diagnosis Encounter for screening for COVID-19 documented in this encounter Additional Health Concerns Infection Onset Date Last Indicated Resolved Time COVID - 19 08/08/2022 09/12/2022 09/22/2022 12:1 6 AM COMPUTER SYSTEMS SUPPORT SPECIALIST COVID - 19 10/31/2022 01/16/2023 01/26/2023 12:1 6 AM CDT COVID - 19 09/25/2024 09/25/2024 09/25/2024 10:4 0 AM COMPUTER SYSTEMS SUPPORT SPECIALIST documented as of this encounter Care Teams Hardware Supplies Sales Representative Relationship Specialty Start Date End Date Alvaro Dinh MD [address] [facility] [address] [place] [address] PCP - General Internal Medicine 08/09/20 03/20/23 Markie Dey MD 4 [facility] [address] [place] [address] PCP - General Family Medicine 03/21/23 Edvin Zamorano MD #2 [address] [facility] [facility] 300 [place] [address] Consulting Physician Urology 06/24/24 documented as of this encounter
--- OUTSIDE RECORDS SUMMARY | 2025-01-12 08:19 | XMS_ITS | Encounter Summary ---
Author Organization [facility] Address [address] [place] [address] Phone Care Team Providers Care Technology Education Instructor Name Role Phone Alvaro Dinh MD Primary Care Provider [phone] Markie Dey MD Primary Care Provider [phone] Edvin Zamorano MD Unavailable Encounter Details Date Type Department Care Team (Late Contact Info) Description 05/30/2022 [facility] 1 [place] [address] Markie Dey MD [address] [place] [address] [address] [place] [address] Encounter for screening for COVID-19 Social History [...] Description 03/12/2025 10:00 AM CDT [facility] #2 [place] [address] Yelena Moe MD #2 [facility] [address] [place] [address] documented as of this encounter Procedures Procedure Name Priority Date/Time Associated Diagnosis Comments SARS-COV-2 BY MOLECULAR Routine 05/30/2022 7:58 AM CDT Encounter for screening for COVID-19 documented in this encounter Results * (ABNORMAL) SARS-COV-2 BY MOLECULAR (05/30/2022 7:58 AM CDT) SARSCOV2 DETECTED( A) (Referenc e Range for this test is Not Detected) [facility] THERMOFISHER FAST DX 05/31/2022 12:23 AM CDT [facility] Comment:This test was perfor med by a RT-PCR method. Other Non-Phlebotomy Collection / Unknown 05/30/2022 7:58 AM CDT 05/30/2022 12:02 PM CDT Narrative [facility] - 05/31/2022 12:23 AM CDT Authorized Fact Sheets about this test for providers and patients are available at: https://www.fda.gov/medical-devices/osmvgneqn-aqagftumqt-etkuepi-devices/emergen cy-us e-authorizations us Markie Dey MD MICROBIOLOGY - GENERAL ORDERAB LES Final Result [facility] [address] [place] [address], documented in this encounter Visit Diagnoses Diagnosis Encounter for screening for COVID-19 documented in this encounter Additional Health Concerns Infection Onset Date Last Indicated Resolved Time COVID - 19 07/26/2021 05/30/2022 05/31/2022 12:2 3 AM CDT COVID - 19 Confirmed 05/30/2022 05/30/2022 0816/2 022 12:16 AM CDT COVID - 19 08/08/2022 09/12/2022 09/22/2022 12:1 6 AM PYTHON DEVELOPER COVID - 19 10/31/2022 01/16/2023 01/26/2023 12:1 6 AM CDT COVID - 19 09/25/2024 09/25/2024 09/25/2024 10:4 0 AM PYTHON DEVELOPER documented as of this encounter Care Teams Technology Education Instructor Relationship Specialty Start Date End Date Alvaro Dinh MD [address] [facility] [address] [place] [address] PCP - General Internal Medicine 08/09/20 03/20/23 Markie Dey MD 4 [facility] [address] [place] [address] PCP - General Family Medicine 03/21/23 Edvin Zamorano MD #[address] [facility] [facility] 300 [place] [address] Consulting Physician Urology 06/24/24 documented as of this encounter
--- OUTSIDE RECORDS SUMMARY | 2025-01-12 08:19 | XMS_ITS | Encounter Summary ---
Author Organization [facility] Address [address] [place] [address] Phone Care Team Providers Care Assistant Professor Of Chemistry Name Role Phone Alvaro Dinh MD Primary Care Provider [phone] Markie Dey MD Primary Care Provider [phone] Edvin Zamorano MD Unavailable Encounter Details Date Type Department Care Team (Late Contact Info) Description 05/16/2022 [facility] 1 [place] [address] Markie Dey MD [address] [place] [address] [address] [place] [address] Encounter for screening for COVID-19 Social History [...] 10:00 AM CDT Office Visit [facility] UROLOGY #[address] [place] [address] Yelena Moe MD #2 [facility] [address] [place] [address] documented as of this encounter Procedures Procedure Name Priority Date/Time Associated Diagnosis Comments SARS-COV-2 BY MOLECULAR Routine 05/16/2022 7:31 AM CDT Encounter for screening for COVID-19 documented in this encounter Results * SARS-COV-2 BY MOLECULAR (05/16/2022 7:31 AM CDT) SARSCOV2 NOT DETECTED (Referen ce Range for this test is Not Detected ) [facility] THERMOFISHER FAST DX 05/17/2022 10:49 AM CDT [facility] Comment:This test was perfor med by a RT-PCR method. Other Non-Phlebotomy Collection / Unknown 05/16/2022 7:31 AM CDT 05/16/2022 9:44 AM CDT Narrative [facility] - 05/17/2022 10:49 AM CDT Authorized Fact Sheets about this test for providers and patients are available at: https://www.fda.gov/medical-devices/lfqmcjchs-evqatyqabw-zlpikof-devices/emergen cy-us e-authorizations us Markie Dey MD MICROBIOLOGY - GENERAL ORDERAB LES Final Result [facility] [address] [place] [address], documented in this encounter Visit Diagnoses Diagnosis Encounter for screening for COVID-19 documented in this encounter Additional Health Concerns Infection Onset Date Last Indicated Resolved Time COVID - 19 07/26/2021 05/30/2022 05/31/2022 12:2 3 AM CDT COVID - 19 Confirmed 05/30/2022 05/30/2022 0816/2 022 12:16 AM CDT COVID - 19 08/08/2022 09/12/2022 09/22/2022 12:1 6 AM BLUE CRABBER COVID - 19 10/31/2022 01/16/2023 01/26/2023 12:1 6 AM CDT COVID - 19 09/25/2024 09/25/2024 09/25/2024 10:4 0 AM BLUE CRABBER documented as of this encounter Care Teams Assistant Professor Of Chemistry Relationship Specialty Start Date End Date Alvaro Dinh MD [address] [facility] [address] [place] [address] PCP - General Internal Medicine 08/09/20 03/20/23 Markie Dey MD [address] [facility] [address] [place] [address] PCP - General Family Medicine 03/21/23 Edvin Zamorano MD #2 [address] [facility] [address] [place] [address] Consulting Physician Urology 06/24/24 documented as of this encounter
--- OUTSIDE RECORDS SUMMARY | 2025-01-12 08:19 | XMS_ITS | Encounter Summary ---
Author Organization [facility] Address [address] [place] [address] Phone Care Team Providers Care Funeral Director'S Assistant Name Role Phone Alvaro Dinh MD Primary Care Provider [phone] Markie Dey MD Primary Care Provider [phone] Edvin Zamorano MD Unavailable Encounter Details Date Type Department Care Team (Late Contact Info) Description 03/14/20[facility] 1 [place] [address] Markie Dey MD [address] [place] [address] [address] [place] [address] Encounter for screening for COVID-19 Social History [...] 03/12/2025 10:00 AM CDT Office Visit [facility] UROLOGY #2 [place] [address] Yelena Moe MD #2 [facility] 300 [place] [address] documented as of this encounter Procedures Procedure Name Priority Date/Time Associated Diagnosis Comments SARS-COV-2 BY MOLECULAR Routine 03/14/2022 7:40 AM CDT Encounter for screening for COVID-19 documented in this encounter Results * SARS-COV-2 BY MOLECULAR (03/14/2022 7:40 AM CDT) SARSCOV2 NOT DETECTED (Referen ce Range for this test is Not Detected ) [facility] THERMOFISHER FAST DX 03/15/2022 10:13 AM CDT [facility] Comment:This test was perfor med by a RT-PCR method. Other Non-Phlebotomy Collection / Unknown 03/14/2022 7:40 AM CDT 03/14/2022 1:33 PM CDT Narrative [facility] - 03/15/2022 10:13 AM CDT Authorized Fact Sheets about this test for providers and patients are available at: https://www.fda.gov/medical-devices/ikgjtvrfh-ucnroxwzbh-iptvvey-devices/emergen cy-us e-authorizations us Markie Dey MD MICROBIOLOGY - GENERAL ORDERAB LES Final Result [facility] [address] [place] [address], documented in this encounter Visit Diagnoses Diagnosis Encounter for screening for COVID-19 documented in this encounter Additional Health Concerns Infection Onset Date Last Indicated Resolved Time COVID - 19 07/26/2021 05/30/2022 05/31/2022 12:2 3 AM CDT COVID - 19 Confirmed 05/30/2022 05/30/2022 0816/2 022 12:16 AM CDT COVID - 19 08/08/2022 09/12/2022 09/22/2022 12:1 6 AM ASPHALT PLANT OPERATOR COVID - 19 10/31/2022 01/16/2023 01/26/2023 12:1 6 AM CDT COVID - 19 09/25/2024 09/25/2024 09/25/2024 10:4 0 AM ASPHALT PLANT OPERATOR documented as of this encounter Care Teams Funeral Director'S Assistant Relationship Specialty Start Date End Date Alvaro Dinh MD [address] [facility] [address] [place] [address] PCP - General Internal Medicine 08/09/20 03/20/23 Markie Dey MD 4 [facility] [address] [place] [address] PCP - General Family Medicine 03/21/23 Edvin Zamorano MD #2 [address] [facility] 300 [place] [address] Consulting Physician Urology 06/24/24 documented as of this encounter
--- OUTSIDE RECORDS SUMMARY | 2025-01-12 08:19 | XMS_ITS | Encounter Summary ---
Author Organization [facility] Address [address] [place] [address] Phone Care Team Providers Care Extruding Machine Operator Name Role Phone Alvaro Dinh MD Primary Care Provider [phone] Markie Dey MD Primary Care Provider [phone] Edvin Zamorano MD Unavailable Encounter Details Date Type Department Care Team (Late Contact Info) Description 12/12/20[facility] 1 [place] [address] Markie Dey MD [address] [place] [address] [address] [place] [address] Encounter for screening for COVID-19 Social History [...] 03/12/2025 10:00 AM CDT Office Visit [facility] #2 [place] [address] Yelena Moe MD #2 [facility] 300 [place] [address] documented as of this encounter Procedures Procedure Name Priority Date/Time Associated Diagnosis Comments SARS-COV-2 BY MOLECULAR Routine 12/12/2022 7:51 AM FOREST FIRE OFFICER Encounter for screening for COVID-19 documented in this encounter Results * SARS-COV-2 BY MOLECULAR (12/12/2022 7:51 AM FOREST FIRE OFFICER) SARSCOV2 NOT DETECTED (Referen ce Range for this test is Not Detected ) [facility] THERMOFISHER FAST DX 12/12/2022 7:20 PM FOREST FIRE OFFICER [facility] Comment:This test was perfor med by a RT-PCR method. Other Non-Phlebotomy Collection / Unknown 12/12/2022 7:51 AM FOREST FIRE OFFICER 12/12/2022 10:05 AM FOREST FIRE OFFICER Narrative [facility] - 12/12/2022 7:20 PM FOREST FIRE OFFICER Authorized Fact Sheets about this test for providers and patients are available at: https://www.fda.gov/medical-devices/vxoyvnfmb-lnkejmaezb-qzdcnpo-devices/emergen -us e-authorizations Result [facility] Markie Dey MD MICROBIOLOGY - GENERAL ORDERAB LES Final Result [facility] [address] [place] [address], documented in this encounter Visit Diagnoses Diagnosis Encounter for screening for COVID-19 documented in this encounter Additional Health Concerns Infection Onset Date Last Indicated Resolved Time COVID - 19 10/31/2022 01/16/2023 01/26/2023 12:1 6 AM CDT COVID - 19 09/25/2024 09/25/2024 09/25/2024 10:4 0 AM FOREST FIRE OFFICER documented as of this encounter Care Teams Extruding Machine Operator Relationship Specialty Start Date End Date Alvaro Dinh MD [address] [place] [address] PCP - General Internal Medicine 08/09/20 03/20/23 Markie Dey MD [address] [place] [address] [address] [facility] [place] [address] PCP - General Family Medicine 03/21/23 Edvin Zamorano MD #2 [facility] [address] [place] [address] Consulting Physician Urology 06/24/24 documented as of this encounter
--- OUTSIDE RECORDS SUMMARY | 2025-01-12 08:19 | XMS_ITS | Encounter Summary ---
Author Organization [facility] Address [address] [place] [address] Phone Care Team Providers Care Tour Driver Name Role Phone Alvaro Dinh MD Primary Care Provider [phone] Markie Dey MD Primary Care Provider [phone] Edvin Zamorano MD Unavailable Encounter Details Date Type Department Care Team (Late Contact Info) Description 10/31/[facility] 1 [place] [address] Markie Dey MD [address] [place] [address] [address] [place] [address] Encounter for screening for COVID-19 Social History [...] Description 03/12/2025 10:00 AM CDT Office Visit [facility] #2 [place] [address] Yelena Moe MD #2 [facility] [address] [place] [address] documented as of this encounter Procedures Procedure Name Priority Date/Time Associated Diagnosis Comments SARS-COV-2 BY MOLECULAR Routine 10/31/2022 7:31 AM BARREL STRAIGHTENER Encounter for screening for COVID-19 documented in this encounter Results * SARS-COV-2 BY MOLECULAR (10/31/2022 7:31 AM BARREL STRAIGHTENER) SARSCOV2 NOT DETECTED (Referen ce Range for this test is Not Detected ) [facility] THERMOFISHER FAST DX 11/01/2022 12:02 AM BARREL STRAIGHTENER [facility] Comment:This test was perfor med by a RT-PCR method. Other Non-Phlebotomy Collection / Unknown 10/31/2022 7:31 AM BARREL STRAIGHTENER 10/31/2022 1:04 PM BARREL STRAIGHTENER Narrative [facility] - 11/01/2022 12:02 AM BARREL STRAIGHTENER Authorized Fact Sheets about this test for providers and patients are available at: https://www.fda.gov/medical-devices/fpdcplqds-vhuwkjapzt-omynruu-devices/emergen -us e-authorizations Markie Dey MD MICROBIOLOGY - GENERAL ORDERAB LES Final Result [facility] [address] [place] [address], documented in this encounter Visit Diagnoses Diagnosis Encounter for screening for COVID-19 documented in this encounter Additional Health Concerns Infection Onset Date Last Indicated Resolved Time COVID - 19 10/31/2022 01/16/2023 01/26/2023 12:1 6 AM CDT COVID - 19 09/25/2024 09/25/2024 09/25/2024 10:4 0 AM BARREL STRAIGHTENER documented as of this encounter Care Teams Tour Driver Relationship Specialty Start Date End Date Alvaro Dinh MD [address] [place] [address] PCP - General Internal Medicine 08/09/20 03/20/23 Markie Dey MD [address] [place] [address] [address] [place] [address] PCP - General Family Medicine 03/21/23 Edvin Zamorano MD #2 [facility] [address] [place] [address] Consulting Physician Urology 06/24/24 documented as of this encounter
--- OUTSIDE RECORDS SUMMARY | 2025-01-12 08:19 | XMS_ITS | Encounter Summary ---
Author Organization [facility] Address [address] [place] [address] Phone Care Team Providers Care Flight Mechanic Name Role Phone Alvaro Dinh MD Primary Care Provider [phone] Markie Dey MD Primary Care Provider [phone] Edvin Zamorano MD Unavailable Encounter Details Date Type Department Care Team (Late Contact Info) Description 05/23/2022 [facility] 1 [place] [address] Markie Dey MD [address] [place] [address] [address] [place] [address] Encounter for screening for COVID-19 Social History [...] Description 03/12/2025 10:00 AM CDT Office Visit [facility] UR[facility]Y #2 [place] [address] Yelena Moe MD #2 [facility] [address] [place] [address] documented as of this encounter Procedures Procedure Name Priority Date/Time Associated Diagnosis Comments SARS-COV-2 BY MOLECULAR Routine 05/23/2022 7:30 AM CDT Encounter for screening for COVID-19 documented in this encounter Results * SARS-COV-2 BY MOLECULAR (05/23/2022 7:30 AM CDT) SARSCOV2 NOT DETECTED (Referen ce Range for this test is Not Detected ) [facility] THERMOFISHER FAST DX 05/24/2022 7:37 AM CDT [facility] Comment:This test was perfor med by a RT-PCR method. Other Non-Phlebotomy Collection / Unknown 05/23/2022 7:30 AM CDT 05/23/2022 1:11 PM CDT Narrative [facility] - 05/24/2022 7:37 AM CDT Authorized Fact Sheets about this test for providers and patients are available at: https://www.fda.gov/medical-devices/mojsdqvav-jfxzhyqmrf-rdaxvqq-devices/emergen cy-us e-authorizations us Markie Dey MD MICROBIOLOGY - GENERAL ORDERAB LES Final Result [facility] [address] [place] [address], documented in this encounter Visit Diagnoses Diagnosis Encounter for screening for COVID-19 documented in this encounter Additional Health Concerns Infection Onset Date Last Indicated Resolved Time COVID - 19 07/26/2021 05/30/2022 05/31/2022 12:2 3 AM CDT COVID - 19 Confirmed 05/30/2022 05/30/2022 0816/2 022 12:16 AM CDT COVID - 19 08/08/2022 09/12/2022 09/22/2022 12:1 6 AM DESTINATION IMAGINATION COORDINATOR COVID - 19 10/31/2022 01/16/2023 01/26/2023 12:1 6 AM CDT COVID - 19 09/25/2024 09/25/2024 09/25/2024 10:4 0 AM DESTINATION IMAGINATION COORDINATOR documented as of this encounter Care Teams Flight Mechanic Relationship Specialty Start Date End Date Alvaor Dinh MD [address] [facility] [address] [place] [address] PCP - General Internal Medicine 08/09/20 03/20/23 Markie Dey MD [address] [facility] [address] [place] [address] PCP - General Family Medicine 03/21/23 Edvin Zamorano MD #2 [address] [facility] [address] [place] [address] Consulting Physician Urology 06/24/24 documented as of this encounter
--- OUTSIDE RECORDS SUMMARY | 2025-01-12 08:19 | XMS_ITS | Encounter Summary ---
Author Organization [facility] Address [address] [place] [address] Phone Care Team Providers Care Ticketing Clerk Name Role Phone Alvaro Dinh MD Primary Care Provider [phone] Markie Dey MD Primary Care Provider [phone] Edvin Zamorano MD Unavailable Encounter Details Date Type Department Care Team (Late Contact Info) Description 08/29/2022 [facility] 1 [place] [address] Markie Dey MD [address] [place] [address] [address] [place] [address] Encounter for screening for COVID-19 Social History [...] [facility] #2 [place] [address] Yelena Moe MD #2 [facility] [address] [place] [address] documented as of this encounter Procedures Procedure Name Priority Date/Time Associated Diagnosis Comments SARS-COV-2 BY MOLECULAR Routine 08/29/2022 8:01 AM CDT Encounter for screening for COVID-19 documented in this encounter Results * SARS-COV-2 BY MOLECULAR (08/29/2022 8:01 AM CDT) SARSCOV2 NOT DETECTED (Referen ce Range for this test is Not Detected ) [facility] THERMOFISHER FAST DX 08/30/2022 12:09 AM CDT [facility] Comment:This test was perfor med by a RT-PCR method. Other Non-Phlebotomy Collection / Unknown 08/29/2022 8:01 AM CDT 08/29/2022 11:56 AM CDT Narrative [facility] - 08/30/2022 12:09 AM CDT Authorized Fact Sheets about this test for providers and patients are available at: https://www.fda.gov/medical-devices/bdlzlqcsw-uetxlzecxc-vlhsupg-devices/emergen cy-us e-authorizations us Markie Dey MD MICROBIOLOGY - GENERAL ORDERAB LES Final Result [facility] [address] [place] [address], documented in this encounter Visit Diagnoses Diagnosis Encounter for screening for COVID-19 documented in this encounter Additional Health Concerns Infection Onset Date Last Indicated Resolved Time COVID - 19 08/08/2022 09/12/2022 09/22/2022 12:1 6 AM WAITER AND CASHIER COVID - 19 10/31/2022 01/16/2023 01/26/2023 12:1 6 AM CDT COVID - 19 09/25/2024 09/25/2024 09/25/2024 10:4 0 AM WAITER AND CASHIER documented as of this encounter Care Teams Ticketing Clerk Relationship Specialty Start Date End Date Alvaro Dinh MD [address] [facility] [address] [place] [address] PCP - General Internal Medicine 10/6/20 5/17/23 Markie Dey MD [address] [facility] [address] [place], [place] [address] PCP - General Family Medicine 03/21/23 Edvin Zamorano MD #2 [address] [facility] [address] [place] [address] Consulting Physician Urology 06/24/24 documented as of this encounter
--- OUTSIDE RECORDS SUMMARY | 2025-01-12 08:19 | XMS_ITS | Encounter Summary ---
Author Organization [facility] Address [address] [place] [address] Phone Care Team Providers Care Benefit Specialist Name Role Phone Alvaro Dinh MD Primary Care Provider [phone] Markie Dey MD Primary Care Provider [phone] Edvin Zamorano MD Unavailable Encounter Details Date Type Department Care Team (Late Contact Info) Description 09/05/2022 [facility] 1 [place] [address] Markie Dey MD [address] [place] [address] [address] [place] [address] Encounter for screening for COVID-19 Social History [...] 10:00 AM CDT Office Visit [facility] UR[facility]Y #2 [place] [address] Yelena Moe MD #2 [facility] [address] [place] [address] documented as of this encounter Procedures Procedure Name Priority Date/Time Associated Diagnosis Comments SARS-COV-2 BY MOLECULAR Routine 09/05/2022 8:03 AM CDT Encounter for screening for COVID-19 documented in this encounter Results * SARS-COV-2 BY MOLECULAR (09/05/2022 8:03 AM CDT) SARSCOV2 NOT DETECTED (Referen ce Range for this test is Not Detected ) [facility] THERMOFISHER FAST DX 09/06/2022 12:01 AM CDT [facility] Comment:This test was perfor med by a RT-PCR method. Other Non-Phlebotomy Collection / Unknown 09/05/2022 8:03 AM CDT 09/05/2022 11:07 AM CDT Narrative [facility] - 09/06/2022 12:01 AM CDT Authorized Fact Sheets about this test for providers and patients are available at: https://www.fda.gov/medical-devices/pqtrqlmpq-injoyfuvrb-gtbmodp-devices/emergen cy-us e-authorizations us Markie Dey MD MICROBIOLOGY - GENERAL ORDERAB LES Final Result [facility] [address] [place] [address], documented in this encounter Visit Diagnoses Diagnosis Encounter for screening for COVID-19 documented in this encounter Additional Health Concerns Infection Onset Date Last Indicated Resolved Time COVID - 19 08/08/2022 09/12/2022 09/22/2022 12:1 6 AM STANDARD MACHINE STITCHER COVID - 19 10/31/2022 01/16/2023 01/26/2023 12:1 6 AM CDT COVID - 19 09/25/2024 09/25/2024 09/25/2024 10:4 0 AM STANDARD MACHINE STITCHER documented as of this encounter Care Teams Benefit Specialist Relationship Specialty Start Date End Date Alvaro Dinh MD [address] [facility] [address] [place] [address] PCP - General Internal Medicine 10/6/20 5/17/23 Markie Dey MD 4 [facility] [address] [place], [place] [address] PCP - General Family Medicine 03/21/23 Edvin Zamorano MD #[address] [facility] [address] [place] [address] Consulting Physician Urology 06/24/24 documented as of this encounter
--- OUTSIDE RECORDS SUMMARY | 2025-01-12 08:19 | XMS_ITS | Encounter Summary ---
Author Organization [facility] Address [address] [place] [address] Phone Care Team Providers Care Plan Consultant Name Role Phone Alvaro Dinh MD Primary Care Provider [phone] Markie Dey MD Primary Care Provider [phone] Edvin Zamorano MD Unavailable Encounter Details Date Type Department Care Team (Late Contact Info) Description 04/04/2022 [facility] 1 [place] [address] Markie Dey MD [address] [place] [address] [address] [place] [address] Encounter for screening for COVID-19 Social History [...] Description 03/12/2025 10:00 AM CDT Office Visit [facility] UR[facility] #2 [place] [address] Yelena Moe MD #2 [facility] [address] [place] [address] documented as of this encounter Procedures Procedure Name Priority Date/Time Associated Diagnosis Comments SARS-COV-2 BY MOLECULAR Routine 04/04/2022 7:36 AM CDT Encounter for screening for COVID-19 documented in this encounter Results * SARS-COV-2 BY MOLECULAR (04/04/2022 7:36 AM CDT) SARSCOV2 NOT DETECTED (Referen ce Range for this test is Not Detected ) [facility] THERMO[facility] FAST DX 04/05/2022 8:04 AM CDT [facility] Comment:This test was perfor med by a RT-PCR method. Other Non-Phlebotomy Collection / Unknown 04/04/2022 7:36 AM CDT 04/04/2022 12:52 PM CDT Narrative [facility] - 04/05/2022 8:04 AM CDT Authorized Fact Sheets about this test for providers and patients are available at: https://www.fda.gov/medical-devices/stuzghqbi-egywulpzmw-fbavouu-devices/emergen cy-us e-authorizations us Markie Dey MD MICROBIOLOGY - GENERAL ORDERAB LES Final Result [facility] [address] [place] [address], documented in this encounter Visit Diagnoses Diagnosis Encounter for screening for COVID-19 documented in this encounter Additional Health Concerns Infection Onset Date Last Indicated Resolved Time COVID - 19 07/26/2021 05/30/2022 05/31/2022 12:2 3 AM CDT COVID - 19 Confirmed 05/30/2022 05/30/2022 0816/2 022 12:16 AM CDT COVID - 19 08/08/2022 09/12/2022 09/22/2022 12:1 6 AM NETWORK SECURITY ADMINISTRATOR COVID - 19 10/31/2022 01/16/2023 01/26/2023 12:1 6 AM CDT COVID - 19 09/25/2024 09/25/2024 09/25/2024 10:4 0 AM NETWORK SECURITY ADMINISTRATOR documented as of this encounter Care Teams Plan Consultant Relationship Specialty Start Date End Date Alvaro Dinh MD [address] [facility] [address] [place] [address] PCP - General Internal Medicine 08/09/20 03/20/23 Markie Dey MD 4 [facility] [address] [place] [address] PCP - General Family Medicine 03/21/23 Edvin Zamorano MD #2 [address] [facility] [address] [place] [address] Consulting Physician Urology 06/24/24 documented as of this encounter
--- OUTSIDE RECORDS SUMMARY | 2025-01-12 08:19 | XMS_ITS | Encounter Summary ---
Author Organization [facility] Address [address] [place] [address] Phone Care Team Providers Care Indian Trader Name Role Phone Alvaro Dinh MD Primary Care Provider [phone] Markie Dey MD Primary Care Provider [phone] Edvin Zamorano MD Unavailable Encounter Details Date Type Department Care Team (Late Contact Info) Description 08/15/[address] 1 [place] [address] Markie Dey MD [address] [place] [address] [address] [place] [address] Encounter for screening for COVID-19 Social History [...] 03/12/2025 10:00 AM CDT Office Visit [facility] #2 [place] [address] Yelena Moe MD #2 [facility] [address] [place] [address] documented as of this encounter Procedures Procedure Name Priority Date/Time Associated Diagnosis Comments SARS-COV-2 BY MOLECULAR Routine 08/15/2022 8:06 AM CDT Encounter for screening for COVID-19 documented in this encounter Results * SARS-COV-2 BY MOLECULAR (08/15/2022 8:06 AM CDT) SARSCOV2 NOT DETECTED (Referen ce Range for this test is Not Detected ) [facility] THERMOFISHER FAST DX 08/16/2022 11:09 AM CDT [facility] Comment:This test was perfor med by a RT-PCR method. Other No Phlebotomy Charged / Unknown 08/15/2022 8:06 AM CDT 08/15/2022 11:26 AM CDT Narrative [facility] - 08/16/2022 11:09 AM CDT Authorized Fact Sheets about this test for providers and patients are available at: https://www.fda.gov/medical-devices/puupyjttg-fbmmyemtzj-rqzynaa-devices/emergen cy-us e-authorizations us Markie Dey MD MICROBIOLOGY - GENERAL ORDERAB LES Final Result [facility] [address] [place] [address], documented in this encounter Visit Diagnoses Diagnosis Encounter for screening for COVID-19 documented in this encounter Additional Health Concerns Infection Onset Date Last Indicated Resolved Time COVID - 19 08/08/2022 09/12/2022 09/22/2022 12:1 6 AM KEY ENTRY OPERATOR COVID - 19 10/31/2022 01/16/2023 01/26/2023 12:1 6 AM CDT COVID - 19 09/25/2024 09/25/2024 09/25/2024 10:4 0 AM KEY ENTRY OPERATOR documented as of this encounter Care Teams Indian Trader Relationship Specialty Start Date End Date Alvaro Dinh MD [address] [facility] [address] [place] [address] PCP - General Internal Medicine 08/09/20 03/20/23 Markie Dey MD 4 [facility] [address] [place] [address] PCP - General Family Medicine 03/21/23 Edvin Zamorano MD #2 [address] [facility] [address] [place] [address] Consulting Physician Urology 06/24/24 documented as of this encounter
--- OUTSIDE RECORDS SUMMARY | 2025-01-12 08:19 | XMS_ITS ---
Author Organization [facility] [employer] [facility] Care Team Providers Care Intelligence Specialist Name Role Phone LEXA GUILLEN Unavailable Unavailable Allergies and adverse reactions No Known Allergies Care Team Name Role Address Phone Organization Dates [facility] [address] [place], [address], [place] (Office): [facility] [employer] [facility] 01/30/2021 - 03/01/2021 Immunizations Immunization Status Vaccine Details Vaccine Code CodeSystem Date Notes Influenza completed Influenza, high-dose, split virus, quadrivalent, injectable, preservative free 197 CVX created date: 02/06/2021 administere d date: 09/06/2020 Per [employer] Zostavax (Shingles) completed created date: 02/06/2021 administere d date: 10/24/2020 Per [employer] Prevnar 13 completed created date: 02/06/2021 administere d date: 10/24/2020 Per [employer] SARS-COV-2 (COVID-19) completed Mfg: Pfizer Step 2 of Multi-step with next step required created date: 02/06/2021 administere d date: 01/05/2021 Per [employer] SARS-COV-2 (COVID-19) completed Mfg: Pfizer Step 1 of Multi-step with next step required created date: 02/06/2021 administere d date: 2020 Per [facility] Mental Status Section Date Assessment Total Score Description 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 02/06/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 Problems Problem # Description Date of onset Resolved Date Code CodeSystem Concern Status 1 ACUTE ON CHRONIC SYSTOLIC (CONGESTIVE) HEART FAILURE 01/31/[address] active 2 AGE-RELATED 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 CURRENT PATHOLOGICAL FRACTURE 01/31/[address] active [address]ARDIOMYOPATHY, UNSPECIFIED 01/31/[address] active 4 CHRONIC ATRIAL FIBRILLATION, UNSPECIFIED 01/31/[address] active 5 CHRONIC KIDNEY DISEASE, STAGE 3 UNSPECIFIED 01/31/[address] active 6 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 01/31/[address] active 7 ENDOCARDITIS, VALVE UNSPECIFIED 01/31/[address] active 8 ESSENTIAL (PRIMARY) HYPERTENSION 01/31/[address] active 9 HYPOTHYROIDISM, UNSPECIFIED 01/31/[address] active 10 NEED FOR ASSISTANCE WITH PERSONAL CARE 01/31/[address] active 11 OBSTRUCTIVE AND REFLUX UROPATHY, UNSPECIFIED 01/31/[address] active 12 PLEURAL EFFUSION, NOT ELSEWHERE CLASSIFIED 01/31/[address] active 13 PULMONARY HYPERTENSION, UNSPECIFIED 01/31/[address] active 14 RHEUMATIC TRICUSPID INSUFFICIENCY 01/31/[address] active 15 TINEA UNGUIUM 01/31/20 21 01/30/[address] completed 16 TYPE 2 DIABETES MELLITUS WITHOUT COMPLICATIONS 01/31/20 21 01/30/[address] completed 17 UNSPECIFIED LACK OF EXPECTED NORMAL PHYSIOLOGICAL DEVELOPMENT IN CHILDHOOD 01/31/[address] active 18 URINARY TRACT INFECTION, SITE NOT SPECIFIED 01/31/[address] active 19 WEAKNESS 01/31/[address] active Reason for Referral No Reasons for Referral Entered Social History Social History Observation Description Start Date End Date Code Code System Current Smoking Status Tobacco smoking consumption unknown 800299463 SNOMED CT Sex Assigned At Male 1945 77928-4 [facility] Vital Signs Code Code System Vitals Name Values and Units Timing Information 9279-1 [facility] Respiratory Rate Value=16.0 Units=/m in 02/26/2021 8462-4 [facility] Blood Pressure-Diastolic Value=66 Un its=mmHg 02/26/2021 8480-6 [facility] Blood Pressure-Systolic Cnihb=959 Un its=mmHg 02/26/2021 8310-5 [facility] Body Temperature Value=97.5 Units= F 02/26/2021 8867-4 [facility] Heart rate Value=55.0 Units=/min 08328-1 [facility] O2 % BldC Oximetry Value=98.0 Units= % 02/26/2021 07902-0 [facility] Weight Vvjln=917.5 Units=Lbs 8302-2 [facility] Height Value=73.0 Units=Inches 02/02/2021
== END 2025-01-12 08:09 | disposition home or self-care (01) ==
LOC: ANHBWCAUD 08:11
PROVIDERS: Visit Provider Family Medicine
DX: H91.3 Deaf nonspeaking, not elsewhere classified (principal)
CPT/HCPCS: 99199